=== PATIENT | female | born 1960 | race Caucasian/White ===

== ENCOUNTER 2017-08-10 20:59 | Emergency (ER) | payer OTHER ==
[2017-08-10 21:28] VITALS: BP 159/95; PULSE 84; RESP 20; TEMP 99
--- NOTE | 2017-08-10 22:28 | ED ---
General Adult HPI - General Chief complaint: ENT Stated complaint: ENT/Strep Time Seen by Provider: 08/10/17 22:12 Source: patient, RN notes reviewed Mode of arrival: ambulatory Limitations: no limitations - History of Present Illness Initial comments: Patient's a 57-year-old female who presents emergency room today with a chief complaint of cough congestion and sore throat. She does admit that family members have been diagnosed with bronchitis and also strep throat infection. She states her symptoms started just a few days ago. States hurts with swallows. She states she was seen in urgent care was given a Medrol Dosepak a little relief the symptoms. She believes that she needs an antibiotic. She does admit to history of COPD. States does breathing treatments at home. Denies any other complaints or symptoms. Patient denies any recent shortness of breath, chest pain, back pain, abdominal pain, nausea or vomiting, numbness or tingling, headaches or visual changes, or any other complaints. - Related Data Home Medications Medication Instructions Recorded Confirmed ALPRAZolam [Xanax] 0.5 mg PO TID PRN 06/01/15 06/01/15 Albuterol Nebulized [Ventolin 2.5 mg INHALATION Q4H 06/01/15 06/01/15 Nebulized] Budesonide/Formoterol Fumarate 2 puff INHALATION BID 06/01/15 06/01/15 [Symbicort 160-4.5 Mcg Inhaler] HYDROcodone/APAP 7.5-325MG [[place] 1 tab PO Q6HR PRN 06/01/15 06/01/15 7.5-325] Tiotropium 18 Mcg/Puff [Spiriva] 1 cap INHALATION DAILY 06/01/15 06/01/15 Previous Rx's Medication Instructions Recorded Doxycycline Hyclate 100 mg PO BID #20 tab 06/01/15 guaiFENesin-Coden 100-10MG/5ML 10 ml PO Q6HR PRN #200 ml 06/01/15 [Robitussin AC] Azithromycin [Zithromax Z-pack] 0 mg PO DIRECTED #6 tab 08/10/17 Fluconazole [Diflucan] 150 mg PO ONCE #1 tab 08/10/17 predniSONE 20 mg PO BID 5 Days tab 08/10/17 Allergies Allergy/AdvReac Type Severity Reaction Status Date / Time ciprofloxacin [From Cipro] Allergy Unknown Verified 08/10/17 21:28 ciprofloxacin HCl Allergy Unknown Verified 08/10/17 21:28 [From Cipro] Penicillins Allergy Unknown Verified 08/10/17 21:28 Review of Systems ROS Statement: Those systems with pertinent positive or pertinent negative responses have been documented in the HPI. ROS Other: All systems not noted in ROS Statement are negative. Past Medical History Past Medical History: COPD History of Any Multi-Drug Resistant Organisms: None Reported Additional Past Surgical History / Comment(s): neck Past Psychological History: Anxiety Smoking Status: Former smoker Past Alcohol Use History: None Reported Past Drug Use History: None Reported General Exam - General Exam Comments Initial Comments: General: The patient is awake and alert, in no distress, and does not appear acutely ill. Eye: Pupils are equal, round and reactive to light, extra-ocular movements are intact. No nystagmus. There is normal conjunctiva bilaterally. No signs of icterus. Ears, nose, mouth and throat: There are moist mucous membranes and no oral lesions. Neck: The neck is supple, there is no tenderness or JVD. Cardiovascular: There is a regular rate and rhythm. No murmur, rub or gallop is appreciated. Respiratory: Mild expiratory wheeze bilaterally. respirations are non-labored, breath sounds are equal. No stridor, rales, or rhonchi. Musculoskeletal: Normal ROM, no tenderness. Strength 5/5. Sensation intact. Pulses equal bilaterally 2+. Neurological: A&O x 3. CN II-XII intact, There are no obvious motor or sensory deficits. Coordination appears grossly intact. Speech is normal. Skin: Skin is warm and dry and no rashes or lesions are noted. Psychiatric: Cooperative, appropriate mood & affect, normal judgment. Limitations: no limitations Course Vital Signs 08/10/17 21:26 Temperature 99.0 F Pulse Rate 84 Respiratory 20 Rate Blood Pressure 159/95 O2 Sat by Pulse 97 Oximetry Medical Decision Making - Medical Decision Making Patient will be started on azithromycin cover for bronchitis also would cover strep infection. Patient he will midline. Mild redness the posterior pharynx. Does admit that she sometimes gets these infections will be given a prescription for Diflucan as well also a prescription for prednisone to use for her symptoms. Disposition Clinical Impression: Acute bronchitis Disposition: HOME SELF-CARE Condition: Good Instructions: Acute Bronchitis (ED) Additional Instructions: Please use medication as discussed. Please follow-up with family doctor in the next 2 days of symptoms have not improved. Please return to emergency room if the symptoms increase or worsen or for any other concerns. Prescriptions: Azithromycin [Zithromax Z-pack] 0 mg PO DIRECTED #6 tab Fluconazole [Diflucan] 150 mg PO ONCE #1 tab predniSONE 20 mg PO BID 5 Days tab Referrals: Nonstaff,Physician [Primary Care Provider] - 1-2 days Kings Mosqueda MD [STAFF PHYSICIAN] - 1-2 days Time of Disposition: 22:26
== END 2017-08-10 22:34 | disposition home or self-care (01) ==
LOC: EC 20:59
DX: J20.9 Acute bronchitis, unspecified (principal); J44.0 Chronic obstructive pulmonary disease with (acute) lower respiratory infection; Z87.891 Personal history of nicotine dependence; Z79.51 Long term (current) use of inhaled steroids; Z79.899 Other long term (current) drug therapy; Z88.0 Allergy status to penicillin; Z88.1 Allergy status to other antibiotic agents
CPT/HCPCS: 99283

== ENCOUNTER → 2018-03-11 | Outpatient (CLI) | payer MEDICARE, OTHER ==
--- NOTE | 2018-03-11 08:31 | CT ---
EXAMINATION TYPE: CT neck chest w con DATE OF EXAM: 03/11/2018 COMPARISON: NONE HISTORY: Thyroid nodule and pulmonary nodule per order. CT DLP: 984 mGycm. Automated Exposure Control for Dose Reduction was Utilized. TECHNIQUE: CT scan of the neck and thorax are performed following with IV Contrast, patient injected with 100 mL of Isovue 300. FINDINGS: NECK: FINDINGS: Airway: Thyroid gland is overall normal in size there are few subcentimeter nodules throughout the ri ght thyroid gland largest is lower pole level with thin rim calcification seen best coronal image 29 measuring 5 mm. No evidence of greater than 1 cm thyroid nodule noted. Parotid/submandibular glands: No gross abnormality seen. Carotid/Vascular Structures: There is mild calcified plaque in carotid bulb level bilaterally without significant stenosis. Incidental dominant left vertebral artery, vertebral arteries are patent to ba silar junction. Osseous Structures: There is anterior fusion plate C3-C6 level with metallic cage vertebral device C3 -C5 level. There is high dense disc material C5-C6 level. There is moderate disc space narrowing with moderate to severe anterior spurring C6-C7 level. Posterior spurring is effacing anterior thecal sac at C3-C4 level on sagittal and axial images and posterior spurring is also effacing anterior thecal sac at C5-C6 level on axial image 51. There are multilevel bilateral uncovertebral facet degenerative changes contributing to multilevel neural foraminal narrowing. Other: There is near complete opacification of ethmoid sinuses bilaterally. There is complete opacifi cation visualized portion of right frontal sinus. There is mild to moderate mucosal thickening in inf erior left frontal sinus. There is mild mucosal thickening in the anterior sphenoid sinuses bilateral ly. There is moderate to severe mucosal thickening in the visualized portion of the maxillary sinuses with 1.2 cm mucous retention cyst or polyp anteriorly in left maxillary sinus noted. There is eviden ce of prior surgery at level of ostiomeatal complex bilaterally with patency on the left but obstruct ion on the right noted. No suspicious greater than 1 cm neck adenopathy is identified bilaterally. Small scattered subcentime ter lymph nodes are seen throughout the neck bilaterally IMPRESSION: Thyroid gland is normal in size with subcentimeter right-sided nodularity, no suspicious greater than [address]. Persistent chronic paranasal pansinusitis is noted despi te prior sinus surgery. THORAX: LUNGS: There is mild to moderate biapical pleural/parenchymal scarring is prominent posteriorly in th e lung apices. There is anterior mild to moderate parenchymal fibrosis or scarring in the mid lungs m ore prominent towards the right middle lobe. I see no evidence of suspicious greater than 5 mm parenc hymal nodule or mass. Background mild underlying emphysematous changes felt present. Mild central bro nchiectasis near scarring anteriorly is present. Mild peribronchial wall thickening is seen. No pleur al effusion or pneumothorax is noted bilaterally. MEDIASTINUM: There are no greater than 1 cm hilar or mediastinal lymph nodes. No cardiomegaly or pe ricardial effusion is seen. Mild to minimal coronary artery calcification is seen which is noted mar ker for coronary artery disease. OTHER: Pancreas is not well identified as there are confluent small bowel loops near this level. Ther e is mild to moderate multilevel anterior spurring in the thoracic spine. IMPRESSION: No suspicious parenchymal nodules or masses.
== END | disposition home or self-care (01) ==
LOC: RADCTMAIN 07:32
PROVIDERS: ATTEND Internal Medicine
DX: E04.1 Nontoxic single thyroid nodule (principal); R91.1 Solitary pulmonary nodule
CPT/HCPCS: 70491; 71260; Q9967

== ENCOUNTER → 2020-11-14 | Outpatient (CLI) | payer MEDICARE, OTHER ==
--- NOTE | 2020-11-14 14:48 | CT ---
EXAMINATION TYPE: CT chest w con DATE OF EXAM: 11/14/2020 COMPARISON: None HISTORY: Shortness of breath. CT DLP: 408 mGycm Automated exposure control for dose reduction was used. CONTRAST: CT scan of the chest is performed with IV Contrast, patient injected with 100ml mL of Isovue 300. FINDINGS: LUNGS: Scattered nonspecific subpleural areas of nodularity measuring up to 3 mm. Nodular density rig ht upper lobe and measures 7 mm. Calcified granuloma left upper lobe measures 4 mm. 2 mm right upper lobe nodular density image 27. No evidence for infiltrate. No mass. There is no pleural effusion or p neumothorax seen. The tracheobronchial tree is patent. MEDIASTINUM: There are no greater than 1 cm hilar or mediastinal lymph nodes. No pericardial effusi on is seen. Thoracic aorta is of normal caliber. The heart is not enlarged. UPPER ABDOMEN: No significant abnormality appreciated. OTHER: No additional significant abnormality is seen. IMPRESSION: Scattered dense areas of subpleural nodularity as well as some parenchymal nodularity. A follow-up st udy in 6 months is advised. No evidence for infiltrate at this time.
== END | disposition home or self-care (01) ==
LOC: RADCTMAIN 14:03
PROVIDERS: ATTEND Internal Medicine
DX: R91.8 Other nonspecific abnormal finding of lung field (principal)
CPT/HCPCS: 71260; Q9967

== ENCOUNTER → 2021-09-22 | Outpatient (CLI) | payer MEDICARE, OTHER ==
--- NOTE | 2021-09-22 21:37 | CT ---
EXAMINATION TYPE: CT chest w con DATE OF EXAM: 09/22/2021 COMPARISON: CT dated 11/14/2020 HISTORY: COPD CT DLP: 252.2 mGycm Automated exposure control for dose reduction was used. TECHNIQUE: CT scan of the chest is performed with IV Contrast, patient injected with 100 mL of Isovue 300. FINDINGS: LUNGS: Right posterior apical pleural-based thickening/nodule measuring 17 mm, not well appreciated p reviously. The remainder of the previously seen pleural-based and parenchymal pulmonary nodules are s table since 2018 CT scan. Persistent COPD changes. Newly seen areas of bronchial impaction mainly see n in the lower lobe bronchi. Patent trachea and main bronchi. Mild infiltration at the medial aspect of the left lung base. No pleural effusion. MEDIASTINUM: No gross cardiomegaly. Scattered arterial and coronary atherosclerotic calcifications. N o pericardial effusion. No pathologically enlarged lymph nodes in the chest. OTHER: No gross upper abdominal abnormality. Lower cervical spine fixation. Marked degenerative de santiago ges at L1-2 level. No gross aggressive bone lesion. IMPRESSION: Newly seen right posterior apical pleural-based thickening/nodule measuring 17 mm as described above, for which a follow-up CT scan in 3 months is highly advised. Alternatively, a PET scan can be consid ered. Stable remainder of the previously seen scattered pleural-based and parenchymal pulmonary nodules. Ot her incidental findings as described above.
== END | disposition home or self-care (01) ==
LOC: RADCTMAIN 15:06
PROVIDERS: ATTEND Internal Medicine Critical Care Medicine
DX: J44.9 Chronic obstructive pulmonary disease, unspecified (principal)
CPT/HCPCS: 71260; Q9967

== ENCOUNTER → 2021-10-10 | Outpatient (CLI) | payer MEDICARE, OTHER ==
--- NOTE | 2021-10-15 17:19 | PE ---
Nuclear medicine PET/CT HISTORY: Solitary pulmonary nodule, initial Patient received 10.1 mCi F-18 FDG intravenously and delayed scanning was performed from the skull ba se to the mid thighs. Localization and attenuation correction CT scan was performed. Correlation to CT chest 09/22/2021 Average mediastinal uptake SUV is 1.9. Average liver uptake SUV is 2.4. Uptake associated with the right maxilla SUV 6.6, right maxillary sinus disease is present. Chest and neck: Apical pleural scarring is present with associated granuloma left upper lobe. No susp icious uptake. Thickening along the fissure seen on axial image 30 through the chest on previous exam is again noted, no suspicious uptake. There is no pleural pericardial effusion. There is no cervical or supraclavicular adenopathy. No mediastinal, axillary, or hilar adenopathy. Coronary artery calcif ications are present. ABDOMEN: There is no evident liver mass. No retroperitoneal adenopathy. No adrenal mass. There is no ascites or suspicious uptake. Bowel uptake is likely physiologic. No additional abnormal uptake within the visualized bones. IMPRESSION: Correlate for chronic sinus disease, there may be associated chronic infection of the rig ht maxilla.
== END | disposition home or self-care (01) ==
LOC: RADPETMAIN 17:10
PROVIDERS: ATTEND Internal Medicine Critical Care Medicine
DX: R91.1 Solitary pulmonary nodule (principal)
CPT/HCPCS: 78815; A9552

== ENCOUNTER 2023-01-16 06:36 | Inpatient (IN) | payer MEDICARE, OTHER ==
--- NOTE | 2023-01-16 07:03 | ED ---
General Adult HPI - General Stated complaint: Difficulty Breathing Time Seen by Provider: 01/16/23 06:37 Source: patient, EMS, RN notes reviewed Mode of arrival: EMS Limitations: no limitations - History of Present Illness Initial comments: This a 62-year-old female presents emergency from via EMS chief complaint of dyspnea. Patient states that she usually wakes up in the morning short of breath states that she normally does breathing treatment results. States that she did for treatments prior to EMS arrival with minimal relief. Patient was given additional DuoNeb and albuterol with some improvement after being placed on CPAP. Patient denies any chest pain denies any leg pain or No history of CHF. Patient is a former smoker history of COPD. - Related Data Home Medications Medication Instructions Recorded Confirmed ALPRAZolam [Xanax] 0.5 mg PO TID PRN 06/01/15 06/01/15 Albuterol Nebulized [Ventolin 2.5 mg INHALATION Q4H 06/01/15 06/01/15 Nebulized] Budesonide/Formoterol Fumarate 2 puff INHALATION BID 06/01/15 06/01/15 [Symbicort 160-4.5 Mcg Inhaler] HYDROcodone/APAP 7.5-325MG [[place] 1 tab PO Q6HR PRN 06/01/15 06/01/15 7.5-325] Tiotropium 18 Mcg/Puff [Spiriva] 1 cap INHALATION DAILY 06/01/15 06/01/15 Previous Rx's Medication Instructions Recorded Doxycycline Hyclate 100 mg PO BID #20 tab 06/01/15 guaiFENesin-Coden 100-10MG/5ML 10 ml PO Q6HR PRN #200 ml 06/01/15 [Robitussin AC] Azithromycin [Zithromax Z-pack (6 0 mg PO DIRECTED #6 tab 08/10/17 tabs)] Fluconazole [Diflucan] 150 mg PO ONCE #1 tab 08/10/17 predniSONE [Deltasone] 20 mg PO BID 5 Days tab 08/10/17 Allergies Allergy/AdvReac Type Severity Reaction Status Date / Time ciprofloxacin [From Cipro] Allergy Unknown Verified 08/10/17 21:28 ciprofloxacin HCl Allergy Unknown Verified 08/10/17 21:28 [From Cipro] Penicillins Allergy Unknown Verified 08/10/17 21:28 Review of Systems ROS Statement: Those systems with pertinent positive or pertinent negative responses have been documented in the HPI. ROS Other: All systems not noted in ROS Statement are negative. Past Medical History Past Medical History: COPD History of Any Multi-Drug Resistant Organisms: None Reported Additional Past Surgical History / Comment(s): neck Past Psychological History: Anxiety Past Alcohol Use History: None Reported Past Drug Use History: None Reported General Exam Limitations: no limitations General appearance: alert, in distress Head exam: Present: atraumatic, normocephalic, normal inspection Eye exam: Present: normal appearance, PERRL, EOMI. Absent: scleral icterus, conjunctival injection, periorbital swelling ENT exam: Present: normal exam, normal oropharynx, mucous membranes moist Neck exam: Present: normal inspection, full ROM. Absent: tenderness, meningismus, lymphadenopathy Respiratory exam: Present: respiratory distress, wheezes. Absent: normal lung sounds bilaterally, rales, rhonchi, stridor Cardiovascular Exam: Present: regular rate, normal rhythm, normal heart sounds. Absent: systolic murmur, diastolic murmur, rubs, gallop, clicks GI/Abdominal exam: Present: soft, normal bowel sounds. Absent: distended, tenderness, guarding, rebound, rigid Neurological exam: Present: alert, oriented X3 Skin exam: Present: warm, dry, intact, normal color. Absent: rash Course Vital Signs 01/16/23 01/16/23 01/16/23 06:49 06:50 06:56 Temperature 97.8 F Pulse Rate 84 Respiratory 22 Rate Blood Pressure 144/92 O2 Sat by Pulse 100 Oximetry Fraction of 100 40 Inspired Oxygen (FIO2) 01/16/23 07:40 Temperature Pulse Rate Respiratory Rate Blood Pressure O2 Sat by Pulse Oximetry Fraction of 40 Inspired Oxygen (FIO2) EKG Findings - EKG Comments: EKG Findings:: EKG performed at 6:48 sinus rhythm rate of 90 OR 150 QRS 74 QT/QTC 348/396 - EKG Results: EKG: interpreted by JOLEEN Medical Decision Making - Medical Decision Making Was pt. sent in by a medical professional or institution (, PA, IRRIGATION TEACHER, urgent care, hospital, or longterm...) When possible be specific @ -No Did you speak to anyone other than the patient for history (EMS, parent, family, police, friend...)? What history was obtained from this source @ -EMS providing prehospital treatment, vitals and presentation Did you review nursing and triage notes (agree or disagree)? Why? @ -I reviewed and agree with nursing and triage notes Were old charts reviewed (outside hosp., previous admission, EMS record, old EKG, old radiological studies, urgent care reports/EKG's, longterm records)? Report findings @ -No old charts were reviewed Differential Diagnosis (chest pain, altered mental status, abdominal pain women, abdominal pain men, vaginal bleeding, weakness, fever, dyspnea, syncope, he adache, dizziness, GI bleed, back pain, seizure, CVA, palpatations, mental health, musculoskeletal)? @ -Differential Dyspnea: Coronary syndrome, arrhythmia, tamponade, asthma, COPD, pulmonary embolism, pneumonia, pneumothorax, pulmonary effusion, anaphylaxis, diabetic ketoacidosis, flailed chest, pulmonary contusion, diaphragmatic rupture, anemia, neuromuscular, this is not meant to be an all-inclusive list. ble EKG interpreted by me (3pts min.). @ -As above X-rays interpreted by me (1pt min.). @ -Chest x-ray shows COPD changes, no infiltrates CT interpreted by me (1pt min.). @ -None done U/S interpreted by me (1pt. min.). @ -None done What testing was considered but not performed or refused? (CT, X-rays, U/S, labs)? Why? @ -None What meds were considered but not given or refused? Why? @ -None Did you discuss the management of the patient with other professionals (professionals i.e. , PA, IRRIGATION TEACHER, lab, RT, psych nurse, nephrology social worker, hat marker, teacher, business practices officer, nurse outreach case manager)? Give summary @ -[Dr. Leo for admission with consult to pulmonary Was smoking cessation discussed for >3mins.? @ -No Was critical care preformed (if so, how long)? @ -35 minutes Were there social determinants of health that impacted care today? How? (Homelessness, low income, unemployed, alcoholism, drug addiction, sanders sportation, low edu. Level, literacy, decrease access to med. care, nursing home, rehab)? @ -No Was there de-escalation of care discussed even if they declined (Discuss DNR or withdrawal of care, Hospice)? DNR status @ -No What co-morbidities impacted this encounter? (DM, HTN, Smoking, COPD, CAD, Cancer, CVA, ARF, Chemo, Hep., AIDS, mental health diagnosis, sleep apnea, morbid obesity)? @ -COPD Was patient admitted / discharged? Hospital course, mention meds given and route, prescriptions, significant lab abnormalities, going to OR and other pertinent info. @ -Admit the patient presented in respiratory distress, resting failure patient was placed on BiPAP patient did receive steroids, DuoNeb treatment prior arrival patient's is improving on BiPAP will have continuation of symptoms, steroids consult to pulmonary after studies are unremarkable. Undiagnosed new problem with uncertain prognosis? @ -No Drug Therapy requiring intensive monitoring for toxicity (Heparin, Nitro, Insulin, Cardizem)? @ -No Were any procedures done? @ -No Diagnosis/symptom? @ -COPD exacerbation Acute, or Chronic, or Acute on Chronic? @ -acute Uncomplicated (without systemic symptoms) or Complicated (systemic symptoms)? @ -complicated Side effects of treatment? @ -No Exacerbation, Progression, or Severe Exacerbation? @ -Severe exacerbation Poses a threat to life or bodily function? How? (Chest pain, USA, VT, pneumonia, PE, COPD, DKA, ARF, appy, cholecystitis, CVA, Diverticulitis, Homicidal, Suicidal, threat to staff... and all critical care pts) @ -[Yes patient has respiratory failure, Diagnosis/symptom? @ -Respiratory Failure Acute, or Chronic, or Acute on Chronic? @ -Acute Uncomplicated (without systemic symptoms) or Complicated (systemic symptoms)? @ -Complicated Side effects of treatment? @ -none Exacerbation, Progression, or Severe Exacerbation @ -no Poses a threat to life or bodily function? @ -yes - Lab Data Result diagrams: 01/16/23 07:01 01/16/23 07:01 Lab Results 01/16/23 01/16/23 01/16/23 Range/Units 07:01 07:01 07:01 WBC 8.7 (3.8-10.6) k/uL RBC 4.83 (3.80-5.40) m/uL Hgb 13.6 (11.4-16.0) gm/dL Hct 41.7 (34.0-46.0) % MCV 86.4 (80.0-100.0) fL MCH 28.1 (25.0-35.0) pg MCHC 32.5 (31.0-37.0) g/dL RDW 14.7 (11.5-15.5) % Plt Count 131 L (150-450) k/uL MPV 9.9 Neutrophils % 55 % Lymphocytes % 28 % Monocytes % 4 % Eosinophils % 10 % Basophils % 0 % Neutrophils # 4.8 (1.3-7.7) k/uL Lymphocytes # 2.5 (1.0-4.8) k/uL Monocytes # 0.3 (0-1.0) k/uL Eosinophils # 0.9 H (0-0.7) k/uL Basophils # 0.0 (0-0.2) k/uL PT 10.0 (9.0-12.0) sec INR 0.9 (<1.2) APTT 21.3 L (22.0-30.0) sec Sodium 141 (137-145) mmol/L Potassium 4.2 (3.5-5.1) mmol/L Chloride 112 H (98-107) mmol/L Carbon Dioxide 21 L (22-30) mmol/L Anion Gap 8 mmol/L BUN 17 (7-17) mg/dL Creatinine 0.65 (0.52-1.04) mg/dL Est GFR (CKD-EPI)AfAm >90 (>60 ml/min/1.73 sqM) Est GFR (CKD-EPI)NonAf >90 (>60 ml/min/1.73 sqM) Glucose 101 H (74-99) mg/dL Plasma Lactic Acid Allen (0.7-2.0) mmol/L Calcium 8.6 (8.4-10.2) mg/dL Magnesium 2.0 (1.6-2.3) mg/dL Total Bilirubin 0.4 (0.2-1.3) mg/dL AST 19 (14-36) U/L ALT 15 (4-34) U/L Alkaline Phosphatase 50 (38-126) U/L Troponin I (0.000-0.034) ng/mL NT-Pro-B Natriuret Pep 153 pg/mL Total Protein 6.6 (6.3-8.2) g/dL Albumin 3.9 (3.5-5.0) g/dL 01/16/23 01/16/23 Range/Units 07:01 07:01 WBC (3.8-10.6) k/uL RBC (3.80-5.40) m/uL Hgb (11.4-16.0) gm/dL Hct (34.0-46.0) % MCV (80.0-100.0) fL MCH (25.0-35.0) pg MCHC (31.0-37.0) g/dL RDW (11.5-15.5) % Plt Count (150-450) k/uL MPV Neutrophils % % Lymphocytes % % Monocytes % % Eosinophils % % Basophils % % Neutrophils # (1.3-7.7) k/uL Lymphocytes # (1.0-4.8) k/uL Monocytes # (0-1.0) k/uL Eosinophils # (0-0.7) k/uL Basophils # (0-0.2) k/uL PT (9.0-12.0) sec INR (<1.2) APTT (22.0-30.0) sec Sodium (137-145) mmol/L Potassium (3.5-5.1) mmol/L Chloride (98-107) mmol/L Carbon Dioxide (22-30) mmol/L Anion Gap mmol/L BUN (7-17) mg/dL Creatinine (0.52-1.04) mg/dL Est GFR (CKD-EPI)AfAm (>60 ml/min/1.73 sqM) Est GFR (CKD-EPI)NonAf (>60 ml/min/1.73 sqM) Glucose (74-99) mg/dL Plasma Lactic Acid Allen 1.3 (0.7-2.0) mmol/L Calcium (8.4-10.2) mg/dL Magnesium (1.6-2.3) mg/dL Total Bilirubin (0.2-1.3) mg/dL AST (14-36) U/L ALT (4-34) U/L Alkaline Phosphatase (38-126) U/L Troponin I 0.016 (0.000-0.034) ng/mL NT-Pro-B Natriuret Pep pg/mL Total Protein (6.3-8.2) g/dL Albumin (3.5-5.0) g/dL Disposition Clinical Impression: COPD exacerbation, Respiratory failure Disposition: ADMITTED IP TO THIS HOSP Condition: Poor Referrals: Madan Krishnamurthy MD [Primary Care Provider] - 1-2 days Time of Disposition: 08:19
[2023-01-16 07:16] LABS: Basophils % (A) 0 %; Eosinophils # (A) 0.9 k/uL (0-0.7); Eosinophils % (A) 10 %; HCT 41.7 % (34.0-46.0); HGB 13.6 gm/dL (11.4-16.0); Lymphocytes # (A) 2.5 k/uL (1.0-4.8); Lymphocytes % (A) 28 %; MCH 28.1 pg (25.0-35.0); MCHC 32.5 g/dL (31.0-37.0); MCV 86.4 fL (80.0-100.0); Mean Platelet Volume 9.9; Monocytes # (A) 0.3 k/uL (0-1.0); Monocytes % (A) 4 %; Neutrophils # (A) 4.8 k/uL (1.3-7.7); Neutrophils % (A) 55 %; Platelet Count 131 k/uL (150-450); RBC 4.83 m/uL (3.80-5.40); RDW 14.7 % (11.5-15.5); WBC 8.7 k/uL (3.8-10.6)
[2023-01-16 07:23] LABS: ALT 15 U/L (4-34); AST 19 U/L (14-36); African American GFR (CKD) >90 (>60 ml/min/1.73 sqM); Albumin 3.9 g/dL (3.5-5.0); Alkaline Phosphatase 50 U/L (38-126); Anion Gap 8 mmol/L; Blood Urea Nitrogen 17 mg/dL (7-17); Calcium 8.6 mg/dL (8.4-10.2); Carbon Dioxide 21 mmol/L (22-30); Chloride 112 mmol/L (98-107); Glucose 101 mg/dL (74-99); Non-African American GFR(CKD) >90 (>60 ml/min/1.73 sqM); Potassium 4.2 mmol/L (3.5-5.1); Sodium 141 mmol/L (137-145); Total Bilirubin 0.4 mg/dL (0.2-1.3); Total Protein 6.6 g/dL (6.3-8.2)
[2023-01-16] MEDS ORDERED: LORazepam 2 MG/ML INJ IV STA (07:23)
[2023-01-16 07:30] LABS: INR 0.9 (<1.2)
[2023-01-16 07:31] LABS: NT-Pro-B-Type Natriuretic Pept 153 pg/mL
[2023-01-16 07:37] LABS: Partial Thromboplastin Time 21.3 sec (22.0-30.0)
--- NOTE | 2023-01-16 08:01 | XR ---
EXAMINATION TYPE: XR chest 1V DATE OF EXAM: 01/16/2023 7:53 AM COMPARISON: PET/CT 10/10/2021, CT chest 09/22/2021, chest radiograph 09/19/2021 TECHNIQUE: XR chest 1V Frontal view of the chest. CLINICAL INDICATION:Female, 62 years old with history of difficulty breathing; FINDINGS: Lungs/Pleura: There is no evidence of pleural effusion, focal consolidation, or pneumothorax. Hyperi nflation. Chronic senescent parenchymal change. Pulmonary vascularity: Unremarkable. Heart/mediastinum: Cardiomediastinal silhouette is unremarkable. Musculoskeletal: No acute osseous pathology. Cervical fusion hardware. Remote fracture deformity of t he left proximal humerus. IMPRESSION: 1. No acute cardiopulmonary disease process. 2. COPD changes.
[2023-01-16] MEDS ORDERED: IPRATROPIUM-ALBUTEROL 3 ML NEB INHALATION PRN (08:19)
[2023-01-16] MEDS ORDERED: NALOXONE 0.4 MG/ML 1 ML VIAL IVP PRN (08:19)
[2023-01-16] MEDS ORDERED: AZITHROMYCIN 500 MG TAB PO SCH (09:00)
[2023-01-16] MEDS: HYDROcodone/APAP 7.5-325MG 1 EACH TAB PO PRN ×2 (10:35→16:13)
--- NOTE | 2023-01-16 11:06 | P.CNPUL ---
History of Present Illness Consult date: 01/16/23 Requesting physician: Ramon Leo Reason for consult: COPD Chief complaint: shortness of breath, cough, wheezing History of present illness: this is a 62-year-old female known history of severe COPD, normally sees Dr. Garcia for her COPD. Patient is on oxygen but she is not compliant with her. She is multiple bronchodilators, quit smoking a few months ago. Patient was admitted last night with symptoms of acute exacerbation of COPD. Her symptoms for the last 4 or 5 days have been symptoms of cough wheezing shortness of breath. Cough has been productive with brownish phlegm, but no fever, no chills, no hemoptysis, and no chest pain.chest x-ray showed no active active cardiopulmonary disease, she does have COPD findings.labs including CBC, basic metabolic profile, renal profile are all normal.patient was placed on BiPAP at 14/6 and 45% and she was noted to have significant dyspnea on her initial presentation. By the time I evaluated the patient, she was feeling better, breathing easier, nonetheless on physical examination she had diffuse rhonchi and wheezes bilaterally. Review of Systems constitutional: Negative HEENT: Negative Pulmonary: As noted in HPI cough wheezing shortness of breath. Cardiac: Negative GI: Negative Genito-urinary: Negative Musculoskeletal: Negative hematologic: Negative Neurologic: Negative Psychiatric: Negative skin: Negative Endocrine: negative Past Medical History Past Medical History: COPD History of Any Multi-Drug Resistant Organisms: None Reported Additional Past Surgical History / Comment(s): neck Past Psychological History: Anxiety Past Alcohol Use History: None Reported Past Drug Use History: None Reported Medications and Allergies Home Medications Medication Instructions Recorded Confirmed Type ALPRAZolam [Xanax] 0.5 mg PO TID PRN 06/01/15 06/01/15 History Albuterol Nebulized [Ventolin 2.5 mg INHALATION Q4H 06/01/15 06/01/15 History Nebulized] Budesonide/Formoterol Fumarate 2 puff INHALATION BID 06/01/15 06/01/15 History [Symbicort 160-4.5 Mcg Inhaler] Doxycycline Hyclate 100 mg PO BID #20 tab 06/01/15 Rx HYDROcodone/APAP 7.5-325MG [Grethel 1 tab PO Q6HR PRN 06/01/15 06/01/15 History 7.5-325] Tiotropium 18 Mcg/Puff [Spiriva] 1 cap INHALATION DAILY 06/01/15 06/01/15 History guaiFENesin-Coden 100-10MG/5ML 10 ml PO Q6HR PRN #200 ml 06/01/15 Rx [Robitussin AC] Azithromycin [Zithromax Z-pack (6 0 mg PO DIRECTED #6 tab 08/10/17 Rx tabs)] Fluconazole [Diflucan] 150 mg PO ONCE #1 tab 08/10/17 Rx predniSONE [Deltasone] 20 mg PO BID 5 Days tab 08/10/17 Rx ALPRAZolam [Xanax] 1 mg PO DAILY 01/16/23 01/16/23 History Ergocalciferol (Vitamin D2) 1,250 mcg PO ARELLANO 01/16/23 01/16/23 History [Drisdol (50,000 Iu)] Fluticasone/Umeclidin/Vilanter 1 puff INHALATION RT-DAILY 01/16/23 01/16/23 History [Trelegy Ellipta 200-62.5-25] Montelukast [Singulair] 10 mg PO DAILY 01/16/23 01/16/23 History Allergies Allergy/AdvReac Type Severity Reaction Status Date / Time ciprofloxacin [From Cipro] Allergy Rash/Hives Verified 01/16/23 10:53 ciprofloxacin HCl Allergy Rash/Hives Verified 01/16/23 10:53 [From Cipro] Penicillins Allergy "Passed Verified 01/16/23 10:53 out" Physical Exam Vitals: Vital Signs Temp Pulse Resp BP Pulse Ox FiO2 01/16/23 10:33 72 25 H 150/79 96 01/16/23 08:55 87 22 133/82 98 01/16/23 07:40 40 01/16/23 06:56 40 01/16/23 06:50 97.8 F 84 22 144/92 100 01/16/23 06:49 100 Intake and Output 01/15/23 01/16/23 01/16/23 22:59 06:59 14:59 Other: Weight 73.936 kg Physical Exam: Revealed 62-year-old female in no distress, presently on BiPAP, 14/6/40% Head: Atraumatic, normocephalic HEENT:[Neck is supple.] [No neck masses.] [No thyromegaly.] [No JVD.] Chest: [diffuse rhonchi and wheezes noted bilaterally. Cardiac Exam: [Normal S1 and S2, no S3 gallop, no murmur.] Abdomen: [Soft, nontender, no megaly, no rebound, no guarding, normal bowel sounds.] Extremities: [No clubbing, no edema, no cyanosis.] Neurological Exam: [No focal neurologic deficit.]alert oriented 3. Psychiatric: Normal mood affect and normal mental status examination. HEENT: No rashes Results - Laboratory Findings CBC and BMP: 01/16/23 07:01 01/16/23 07:01 PT/INR, D-dimer PT 10.0 sec (9.0-12.0) 01/16/23 07:01 INR 0.9 (<1.2) 01/16/23 07:01 Abnormal lab findings: Abnormal Labs 01/16/23 01/16/23 01/16/23 07:01 07:01 07:01 Plt Count 131 L Eosinophils # 0.9 H APTT 21.3 L Chloride 112 H Carbon Dioxide 21 L Glucose 101 H - Diagnostic Findings Chest x-ray: image reviewed (as noted in HPI) Assessment and Plan Assessment: impression: acute on chronic hypoxic respiratory failure secondary to acute exacerbation of COPD Acute exacerbation of COPD Acute tracheobronchitis Ex-smoker recommendation: Continue bronchodilators including DuoNeb, Solu-Medrol Pulmicort and Perforomist. Doxycycline 100 mg by mouth twice a day Transition patient to a nasal cannula and titrate FiO2 accordingly maintaining O2 saturation just above 90%. We will continue to follow Time with Patient: Greater than 30
[2023-01-16] MEDS: IPRATROPIUM-ALBUTEROL 3 ML NEB INHALATION SCH ×3 (11:23→20:13)
[2023-01-16] MEDS: methylPREDNISolone SOD SUCCI 125 MG/2 ML VIAL IV SCH ×3 (12:06→23:55)
[2023-01-16] MEDS ORDERED: DEXTROSE 50% SYRINGE 50 ML IVP PRN ×2 (14:28)
--- NOTE | 2023-01-16 15:14 | P.HPIM ---
History of Present Illness This is a pleasant 62 years old female with past medical history of COPD. Presents because of dyspnea and coughing. Over 2 days duration Patient has little chest pain with coughing She denies smoking alcohol or illicit drugs She is not on home oxygen on Admission patient was in some respiratory distress and she was placed on BiPA P machine. Currently she is saturating 100% on FiO2 of 35%. She looks more comfortable interactive that she does more freely. Afebrile. Labs including CBC, INR BMP and liver enzymes are unremarkable. ENT is 153. Chest x-ray: COPD changes with no acute process EKG: Sinus rhythm normal at 90 bpm with no significant ST-T changes. Review of Systems Review of systems CONSTITUTIONAL: No fever, no malaise, no fatigue. HEENT: No recent visual problems or hearing problems. Denied any sore throat. CARDIOVASCULAR: No orthopnea, PND, no palpitations, no syncope. PULMONARY: No chest wall tenderness, no cough, no hemoptysis. GASTROINTESTINAL: No diarrhea, no nausea, no vomiting, no abdominal pain. Normoactive bowel sounds. NEUROLOGICAL: No headaches, no weakness, no numbness. HEMATOLOGICAL: Denies any bleeding or petechiae. GENITOURINARY: Denies any burning micturition, frequency, or urgency. MUSCULOSKELETAL/RHEUMATOLOGICAL: Denies any joint pain, swelling, or any muscle pain. ENDOCRINE: Denies any polyuria or polydipsia. Past Medical History Past Medical History: COPD History of Any Multi-Drug Resistant Organisms: None Reported Additional Past Surgical History / Comment(s): neck C2-C6 lamenectomy with bracket placement Past Psychological History: Anxiety Smoking Status: Former smoker Past Alcohol Use History: None Reported Past Drug Use History: None Reported - Past Family History Father Family Medical History: Cancer Mother Family Medical History: AICD/Pacemaker Medications and Allergies Home Medications Medication Instructions Recorded Confirmed Type Albuterol Nebulized [Ventolin 2.5 mg INHALATION RT-Q4H PRN 06/01/15 01/16/23 History Nebulized] ALPRAZolam [Xanax] 1 mg PO DAILY 01/16/23 01/16/23 History Acetaminophen Tab [Tylenol Tab] 1,000 mg PO Q6HR PRN 01/16/23 01/16/23 History Albuterol Sulfate [Albuterol 2 puff PO RT-Q4H PRN 01/16/23 01/16/23 History Sulfate Hfa] Ergocalciferol (Vitamin D2) 1,250 mcg PO ARELLANO 01/16/23 01/16/23 History [Drisdol (50,000 Iu)] Escitalopram [Lexapro] 10 mg PO DAILY 01/16/23 01/16/23 History Fluticasone/Umeclidin/Vilanter 1 puff INHALATION RT-DAILY 01/16/23 01/16/23 History [Trelegy Ellipta 200-62.5-25] HYDROcodone/APAP 10-325MG [Deshler 1 tab PO BID PRN 01/16/23 01/16/23 History 10-325] Ibuprofen [Motrin Ib] 800 mg PO Q8H PRN 01/16/23 01/16/23 History Montelukast [Singulair] 10 mg PO DAILY 01/16/23 01/16/23 History Allergies Allergy/AdvReac Type Severity Reaction Status Date / Time ciprofloxacin [From Cipro] Allergy Rash/Hives Verified 01/16/23 10:53 ciprofloxacin HCl Allergy Rash/Hives Verified 01/16/23 10:53 [From Cipro] Penicillins Allergy "Passed Verified 01/16/23 10:53 out" Physical Exam Vitals: Vital Signs Temp Pulse Pulse Resp BP BP Pulse Ox 01/16/23 11:41 97 F L 77 21 145/76 100 01/16/23 11:32 84 01/16/23 11:23 80 01/16/23 11:10 01/16/23 10:33 72 25 H 150/79 96 01/16/23 08:55 87 22 133/82 98 01/16/23 07:40 01/16/23 06:56 01/16/23 06:50 97.8 F 84 22 144/92 100 01/16/23 06:49 FiO2 01/16/23 11:41 35 01/16/23 11:32 01/16/23 11:23 01/16/23 11:10 35 01/16/23 10:33 01/16/23 08:55 01/16/23 07:40 40 01/16/23 06:56 40 01/16/23 06:50 01/16/23 06:49 100 Intake and Output 01/15/23 01/16/23 01/16/23 22:59 06:59 14:59 Other: # Bowel Movements 1 Weight 73.936 kg 73.936 kg GENERAL: The patient is alert and oriented x3, not in any acute distress. Well developed, well nourished. HEENT: Pupils are round and equally reacting to light. EOMI. No scleral icterus. No conjunctival pallor. Normocephalic, atraumatic. No pharyngeal erythema. No thyromegaly. CARDIOVASCULAR: S1 and S2 present. No murmurs, rubs, or gallops. -PULMONARY: Chest is clear to auscultation, bilateral expiratory wheezing , no crackles. ABDOMEN: Soft, nontender, nondistended, normoactive bowel sounds. No palpable organomegaly. MUSCULOSKELETAL: No joint swelling or deformity. EXTREMITIES: No cyanosis, clubbing, or pedal edema. NEUROLOGICAL: Gross neurological examination did not reveal any focal deficits. SKIN: No rashes. no petechiae. Results CBC & Chem 7: 01/16/23 07:01 01/16/23 07:01 Labs: Abnormal Lab Results - Last 24 Hours (Table) 01/16/23 01/16/23 01/16/23 Range/Units 07:01 07:01 07:01 Plt Count 131 L (150-450) k/uL Eosinophils # 0.9 H (0-0.7) k/uL APTT 21.3 L (22.0-30.0) sec Chloride 112 H (98-107) mmol/L Carbon Dioxide 21 L (22-30) mmol/L Glucose 101 H (74-99) mg/dL Thrombosis Risk Factor Assmnt - Choose All That Apply Any of the Below Risk Factors Present?: Yes Each Factor Represents 1 point: Abnormal pulmonary function (COPD) Other Risk Factors: Yes Each Risk Factor Represents 2 Points: Age 61-74 years Thrombosis Risk Factor Assessment Total Risk Factor Score: 3 Thrombosis Risk Factor Assessment Level: Moderate Risk Assessment and Plan Assessment: Acute COPD exacerbation. Acute hypoxic respiratory failure Plan: Continue with IV Solu-Medrol Continue with doxycycline Pulmonary team consult Labs and medication were reviewed.. Continue same treatment. Continue with sym ptomatic treatment. Resume home medication. Monitor labs and vitals. DVT and GI prophylaxis. Further recommendations as per clinical course of the patient DVT prophylaxis: Subcutaneous heparin GI Prophylaxis: Pepcid PT/OT: Pending Prognosis is guarded
[2023-01-16] MEDS: INSULIN ASPART (NovoLOG) 100 UNIT/ML VIAL SQ SCH ×2 (16:19→20:57)
[2023-01-16 16:20] LABS: Glucose,Whole Blood 137 mg/dL (70-110)
[2023-01-16] MEDS: FORMOTEROL FUMARATE 20 MCG/2 ML NEBU INHALATION SCH (20:12)
[2023-01-16] MEDS: BUDESONIDE 1 MG/2 ML NEBU INHALATION SCH (20:13)
[2023-01-16 20:14] LABS: Glucose,Whole Blood 207 mg/dL (70-110)
[2023-01-16] MEDS: FAMOTIDINE 20 MG/2 ML VIAL IV SCH (20:56)
[2023-01-16] MEDS: DOXYCYCLINE 100 MG CAP PO SCH (20:57)
[2023-01-16] MEDS: HEPARIN SODIUM,PORCINE/PF 5,000 UNIT/0.5 ML SYRINGE SQ SCH (20:57)
[2023-01-16] MEDS ORDERED: ALBUTEROL NEBULIZED 2.5 MG/3 ML INHALATION PRN (21:20)
[2023-01-16] MEDS: ACETAMINOPHEN TAB 500 MG TAB PO PRN (21:37)
[2023-01-16] MEDS: ALPRAZolam 0.5 MG TAB PO PRN (21:37)
[2023-01-17 06:09] LABS: Glucose,Whole Blood 150 mg/dL (70-110)
[2023-01-17] MEDS: ACETAMINOPHEN TAB 500 MG TAB PO PRN (06:12)
[2023-01-17] MEDS: methylPREDNISolone SOD SUCCI 125 MG/2 ML VIAL IV SCH ×4 (06:13→22:05)
[2023-01-17] MEDS: INSULIN ASPART (NovoLOG) 100 UNIT/ML VIAL SQ SCH ×4 (06:24→22:09)
[2023-01-17] MEDS ORDERED: NON FORMULARY DRUG (Fluticasone/Umeclidin/Vilanter [Trelegy Ellipta 200-62.5-25] 1 EACH Bl INHALATION SCH (08:00)
[2023-01-17] MEDS: BUDESONIDE 1 MG/2 ML NEBU INHALATION SCH ×2 (08:27→20:10)
[2023-01-17] MEDS: IPRATROPIUM-ALBUTEROL 3 ML NEB INHALATION SCH ×4 (08:27→20:10)
[2023-01-17] MEDS: FORMOTEROL FUMARATE 20 MCG/2 ML NEBU INHALATION SCH ×2 (08:27→20:10)
[2023-01-17] MEDS: ESCITALOPRAM 10 MG TAB PO SCH (08:57)
[2023-01-17] MEDS: HYDROcodone/APAP 7.5-325MG 1 EACH TAB PO PRN ×2 (08:57→17:28)
[2023-01-17] MEDS: MONTELUKAST 10 MG TAB PO SCH (08:57)
[2023-01-17] MEDS: HEPARIN SODIUM,PORCINE/PF 5,000 UNIT/0.5 ML SYRINGE SQ SCH ×2 (08:57→22:09)
[2023-01-17] MEDS: DOXYCYCLINE 100 MG CAP PO SCH ×3 (08:57→22:06)
[2023-01-17] MEDS: FAMOTIDINE 20 MG/2 ML VIAL IV SCH ×2 (08:57→22:06)
[2023-01-17 11:33] LABS: Glucose,Whole Blood 130 mg/dL (70-110)
--- NOTE | 2023-01-17 11:39 | P.PN ---
Subjective Progress Note Date: 01/17/23 Principal diagnosis: Acute exacerbation of COPD this is a 62-year-old female known history of severe COPD, normally sees Dr. Garcia for her COPD. Patient is on oxygen but she is not compliant with her. She is multiple bronchodilators, quit smoking a few months ago. Patient was admitted last night with symptoms of acute exacerbation of COPD. Her symptoms for the last 4 or 5 days have been symptoms of cough wheezing shortness of breath. Cough has been productive with brownish phlegm, but no fever, no chills, no hemoptysis, and no chest pain.chest x-ray showed no active active cardiopulmonary disease, she does have COPD findings.labs including CBC, basic metabolic profile, renal profile are all normal.patient was placed on BiPAP at 14/6 and 45% and she was noted to have significant dyspnea on her initial presentation. By the time I evaluated the patient, she was feeling better, breathing easier, nonetheless on physical examination she had diffuse rhonchi and wheezes bilaterally. Patient was reevaluated today 01/17/23, patient is feeling better less cough and less wheezing less shortness of breath improved but not back to baseline. Patient is obviously responding well to her present course of bronchodilators and steroids, and she will probably need another day of IV Solu-Medrol before we could consider discharge planning on this patient. Objective - Vital Signs Vital signs: Vital Signs Temp 97.9 F 01/17/23 08:00 Pulse 78 01/17/23 11:27 Resp 18 01/17/23 08:00 BP 129/70 01/17/23 08:00 Pulse Ox 97 01/17/23 08:00 FiO2 35 01/16/23 16:05 Intake & Output 01/16/23 01/17/23 01/17/23 18:59 06:59 18:59 Intake Total 1100 240 Balance 1100 240 Weight 73.936 kg Intake: IV 20 Invasive Line 1 20 Oral 1080 240 Other: Voiding Method Toilet # Voids 2 # Bowel Movements 1 - Exam Physical Exam: Revealed 62-year-old female in no distress, on 3 L nasal cannula Head: Atraumatic, normocephalic HEENT:[Neck is supple.] [No neck masses.] [No thyromegaly.] [No JVD.] Chest: [Scattered rhonchi and wheezes noted bilaterally. Cardiac Exam: [Normal S1 and S2, no S3 gallop, no murmur.] Abdomen: [Soft, nontender, no megaly, no rebound, no guarding, normal bowel sounds.] Extremities: [No clubbing, no edema, no cyanosis.] Neurological Exam: [No focal neurologic deficit.]alert oriented 3. Psychiatric: Normal mood affect and normal mental status examination. HEENT: No rashes - Labs CBC & Chem 7: 01/16/23 07:01 01/16/23 07:01 Labs: Abnormal Lab Results - Last 24 Hours (Table) 01/16/23 01/16/23 01/17/23 Range/Units 16:18 20:12 06:08 POC Glucose (mg/dL) 137 H 207 H 150 H (70-110) mg/dL 01/17/23 Range/Units 11:31 POC Glucose (mg/dL) 130 H (70-110) mg/dL Assessment and Plan Assessment: impression: acute on chronic hypoxic respiratory failure secondary to acute exacerbation of COPD Acute exacerbation of COPD Acute tracheobronchitis Ex-smoker recommendation: Continue bronchodilators including DuoNeb, Solu-Medrol Pulmicort and Perforomist. Doxycycline 100 mg by mouth twice a day Possible discharge planning in the next 24 hours We will continue to follow Time with Patient: Less than 30
--- NOTE | 2023-01-17 13:00 | P.PN ---
Subjective This is a pleasant 62 years old female with past medical history of COPD. Presents because of dyspnea and coughing. Over 2 days duration Patient has little chest pain with coughing She denies smoking alcohol or illicit drugs She is not on home oxygen on Admission patient was in some respiratory distress and she was placed on BiPAP machine. Currently she is saturating 100% on FiO2 of 35%. She looks more comfortable interactive that she does more freely. Afebrile. Labs including CBC, INR BMP and liver enzymes are unremarkable. ENT is 153. Chest x-ray: COPD changes with no acute process EKG: Sinus rhythm normal at 90 bpm with no significant ST-T changes. 01/17/2023 Patient dyspnea is improving. She is saturating 97% on 2 L oxygen via nasal cannula. She does not BiPAP this morning. She remains on IV Solu-Medrol 60 mg on doxycycline Possible discharge in 24-48 hours was cleared by pulmonary service. Objective - Vital Signs Vital signs: Vital Signs Temp 98 F 01/17/23 12:15 Pulse 80 01/17/23 12:15 Resp 18 01/17/23 12:15 BP 132/69 01/17/23 12:15 Pulse Ox 96 01/17/23 12:15 FiO2 35 01/16/23 16:05 Intake & Output 01/16/23 01/17/23 01/17/23 18:59 06:59 18:59 Intake Total 1100 240 Balance 1100 240 Weight 73.936 kg Intake: IV 20 Invasive Line 1 20 Oral 1080 240 Other: Voiding Method Toilet # Voids 2 # Bowel Movements 1 - Exam GENERAL: The patient is alert and oriented x3, not in any acute distress. Well developed, well nourished. HEENT: Pupils are round and equally reacting to light. EOMI. No scleral icterus. No conjunctival pallor. Normocephalic, atraumatic. No pharyngeal erythema. No thyromegaly. CARDIOVASCULAR: S1 and S2 present. No murmurs, rubs, or gallops. -PULMONARY: Chest is clear to auscultation, scattered wheezing , no crackles. ABDOMEN: Soft, nontender, nondistended, normoactive bowel sounds. No palpable organomegaly. MUSCULOSKELETAL: No joint swelling or deformity. EXTREMITIES: No cyanosis, clubbing, or pedal edema. NEUROLOGICAL: Gross neurological examination did not reveal any focal deficits. SKIN: No rashes. no petechiae. - Labs CBC & Chem 7: 01/16/23 07:01 01/16/23 07:01 Labs: Abnormal Lab Results - Last 24 Hours (Table) 01/16/23 01/16/23 01/17/23 Range/Units 16:18 20:12 06:08 POC Glucose (mg/dL) 137 H 207 H 150 H (70-110) mg/dL 01/17/23 Range/Units 11:31 POC Glucose (mg/dL) 130 H (70-110) mg/dL Assessment and Plan Assessment: Acute COPD exacerbation. Acute hypoxic respiratory failure Plan: Continue with IV Solu-Medrol Continue with doxycycline Pulmonary team consult Labs and medication were reviewed.. Continue same treatment. Continue with symptomatic treatment. Resume home medication. Monitor labs and vitals. DVT and GI prophylaxis. Further recommendations as per clinical course of the patient DVT prophylaxis: Subcutaneous heparin GI Prophylaxis: Pepcid PT/OT: Pending Prognosis is guarded
[2023-01-17 16:22] LABS: Glucose,Whole Blood 150 mg/dL (70-110)
--- NOTE | 2023-01-17 18:12 | CT ---
EXAMINATION TYPE: CT chest wo con CT DLP: 307.3 mGycm, Automated exposure control for dose reduction was used. DATE OF EXAM: 01/17/2023 5:59 PM COMPARISON: CT chest 09/22/2021, PET/CT 10/10/2021 CLINICAL INDICATION:Female, 62 years old with histor y of chest pain; TECHNIQUE: Multiple axial images were obtained through the chest. Sagittal and coronal reformats were created for review. Contrast used: mL of (None if empty) Oral contrast used: (None if empty) FINDINGS: LUNGS/ PLEURA: Scattered streaky atelectasis/scarring throughout the lungs. No focal consolidation, p neumothorax or pleural effusion. Right minor fissure lymph node versus scarring. AIRWAY: Patent and unremarkable. HEART: Size within normal limits. Atherosclerosis of the left anterior descending coronary artery MEDIASTINUM: No gross evidence of adenopathy. VASCULATURE: No aortic aneurysm. MUSCULOSKELETAL: No acute osseous abnormalities, fixation hardware in the lower cervical spine is par tially visualized what is visualized appears intact. The ribs and other osseous structures all appear intact without evidence for acute fracture. Moderate to severe degeneration changes are the spine is multilevel disc space narrowing, osteophytes, vacuum disc phenomena, and small amounts SOFT TISSUES/LYMPH NODES: Unremarkable. LOWER NECK: No significant findings. UPPER ABDOMEN: No significant findings. IMPRESSION: No evidence for acute process. No finding to explain patient's pain.
[2023-01-17 20:09] LABS: Glucose,Whole Blood 199 mg/dL (70-110)
[2023-01-17] MEDS: ALPRAZolam 0.5 MG TAB PO PRN (22:16)
[2023-01-18 06:22] LABS: Glucose,Whole Blood 161 mg/dL (70-110)
[2023-01-18] MEDS: methylPREDNISolone SOD SUCCI 125 MG/2 ML VIAL IV SCH ×3 (07:08→18:02)
[2023-01-18] MEDS: INSULIN ASPART (NovoLOG) 100 UNIT/ML VIAL SQ SCH ×4 (07:10→21:58)
[2023-01-18] MEDS: BUDESONIDE 1 MG/2 ML NEBU INHALATION SCH ×2 (07:52→21:04)
[2023-01-18] MEDS: FORMOTEROL FUMARATE 20 MCG/2 ML NEBU INHALATION SCH ×2 (07:52→20:58)
[2023-01-18] MEDS: IPRATROPIUM-ALBUTEROL 3 ML NEB INHALATION SCH ×4 (07:53→20:58)
[2023-01-18] MEDS: FAMOTIDINE 20 MG/2 ML VIAL IV SCH ×2 (08:54→21:57)
[2023-01-18] MEDS: DOXYCYCLINE 100 MG CAP PO SCH (08:54)
[2023-01-18] MEDS: HYDROcodone/APAP 7.5-325MG 1 EACH TAB PO PRN ×2 (08:54→18:22)
[2023-01-18] MEDS: MONTELUKAST 10 MG TAB PO SCH (08:54)
[2023-01-18] MEDS: ESCITALOPRAM 10 MG TAB PO SCH (08:54)
[2023-01-18] MEDS: HEPARIN SODIUM,PORCINE/PF 5,000 UNIT/0.5 ML SYRINGE SQ SCH ×2 (08:57→21:58)
[2023-01-18] MEDS ORDERED: hydrALAZINE HCL 20 MG/ML 1 ML VIAL IVP PRN (10:03)
[2023-01-18] MEDS: amLODIPine 5 MG TAB PO SCH (10:19)
--- NOTE | 2023-01-18 10:56 | P.PN ---
Subjective Progress Note Date: 01/18/23 Principal diagnosis: Shortness of breath. Acute exacerbation of COPD this is a 62-year-old female known history of severe COPD, normally sees Dr. Garcia for her COPD. Patient is on oxygen but she is not compliant with her. She is multiple bronchodilators, quit smoking a few months ago. Patient was admitted last night with symptoms of acute exacerbation of COPD. Her symptoms for the last 4 or 5 days have been symptoms of cough wheezing shortness of breath. Cough has been productive with brownish phlegm, but no fever, no chills, no hemoptysis, and no chest pain.chest x-ray showed no active active cardiopulmonary disease, she does have COPD findings.labs including CBC, basic metabolic profile, renal profile are all normal.patient was placed on BiPAP at 14/6 and 45% and she was noted to have significant dyspnea on her initial presentation. By the time I evaluated the patient, she was feeling better, breathing easier, nonetheless on physical examination she had diffuse rhonchi and wheezes bilaterally. Patient was reevaluated today 01/17/23, patient is feeling better less cough and less wheezing less shortness of breath improved but not back to baseline. Felicia ent is obviously responding well to her present course of bronchodilators and steroids, and she will probably need another day of IV Solu-Medrol before we could consider discharge planning on this patient. Progress note dated 01/18/2023. 62-year-old female with history of COPD. She was admitted to the hospital a couple days ago with a COPD exacerbation. She came in with shortness of breath, cough, wheezing, chest tightness, and brown phlegm production. The patient is on 2 L nasal cannula. She's not receiving any IV fluids. The patient is seen today in room 357. The only new labs today is a glucose of 161. Objective - Vital Signs Vital signs: Vital Signs Temp 98.2 F 01/18/23 08:50 Pulse 62 01/18/23 08:50 Resp 22 01/18/23 08:50 BP 186/84 01/18/23 08:50 Pulse Ox 95 01/18/23 08:50 FiO2 35 01/16/23 16:05 Intake & Output 01/17/23 01/18/23 01/18/23 18:59 06:59 18:59 Intake Total 360 480 Balance 360 480 Intake: Oral 360 480 Other: Voiding Method Toilet Toilet # Voids 2 # Bowel Movements 0 - Exam No acute distress, oriented 3. No conversational dyspnea, audible wheezing, or use of accessory muscles. HEENT examination is grossly unremarkable. Neck supple. Full range of motion. No adenopathy thyromegaly or neck vein distention. Cardiovascular examination reveals regular rhythm rate. S1-S2 normal. No S3 or S4. No discernible murmur noted. Heart rate 76 bpm. Lungs reveal diffuse bilateral expiratory wheezes and rhonchi. Breath sounds equal bilaterally. 2 L saturation 95%. No crackles. Abdomen soft bowel sounds are heard. No masses or tenderness. Extremities are intact. No cyanosis clubbing or edema. Skin is without rash or lesion. Neurologic examination is brief but nonfocal. - Labs CBC & Chem 7: 01/16/23 07:01 01/16/23 07:01 Labs: Abnormal Lab Results - Last 24 Hours (Table) 01/17/23 01/17/23 01/17/23 Range/Units 11:31 16:21 20:08 POC Glucose (mg/dL) 130 H 150 H 199 H (70-110) mg/dL 01/18/23 Range/Units 06:21 POC Glucose (mg/dL) 161 H (70-110) mg/dL Assessment and Plan Assessment: Acute on chronic hypoxemic respiratory failure, secondary to COPD exacerbation. History of chronic obstructive pulmonary disease. Acute tracheobronchitis. History of previous tobacco use. Plan: Plan dated 01/18/2023. The patient remains on all appropriate medications, including albuterol sulfate, ipratropium bromide, budesonide, formoterol, and Solu-Medrol. We will continue to follow make recommendations along the way. Overall prognosis remains gua rded. The patient has not see me in the office for over a year. We encourage her to come back to the office, to be evaluated, once discharged. Time with Patient: Less than 30
[2023-01-18 11:48] LABS: Glucose,Whole Blood 111 mg/dL (70-110)
[2023-01-18] MEDS: ALPRAZolam 0.5 MG TAB PO PRN ×2 (11:59→23:18)
[2023-01-18 17:27] LABS: Glucose,Whole Blood 126 mg/dL (70-110)
[2023-01-18 19:47] LABS: Glucose,Whole Blood 227 mg/dL (70-110)
[2023-01-19] MEDS: methylPREDNISolone SOD SUCCI 125 MG/2 ML VIAL IV SCH ×4 (00:10→18:30)
--- NOTE | 2023-01-19 05:58 | P.PN ---
Subjective Progress Note Date: 01/19/23 Principal diagnosis: Shortness of breath. Acute exacerbation of COPD this is a 62-year-old female known history of severe COPD, normally sees Dr. Garcia for her COPD. Patient is on oxygen but she is not compliant with her. She is multiple bronchodilators, quit smoking a few months ago. Patient was admitted last night with symptoms of acute exacerbation of COPD. Her symptoms for the last 4 or 5 days have been symptoms of cough wheezing shortness of breath. Cough has been productive with brownish phlegm, but no fever, no chills, no hemoptysis, and no chest pain.chest x-ray showed no active active cardiopulmonary disease, she does have COPD findings.labs including CBC, basic metabolic profile, renal profile are all normal.patient was placed on BiPAP at 14/6 and 45% and she was noted to have significant dyspnea on her initial presentation. By the time I evaluated the patient, she was feeling better, breathing easier, nonetheless on physical examination she had diffuse rhonchi and wheezes bilaterally. Patient was reevaluated today 01/17/23, patient is feeling better less cough and less wheezing less shortness of breath improved but not back to baseline. Felicia ent is obviously responding well to her present course of bronchodilators and steroids, and she will probably need another day of IV Solu-Medrol before we could consider discharge planning on this patient. Progress note dated 01/18/2023. 62-year-old female with history of COPD. She was admitted to the hospital a couple days ago with a COPD exacerbation. She came in with shortness of breath, cough, wheezing, chest tightness, and brown phlegm production. The patient is on 2 L nasal cannula. She's not receiving any IV fluids. The patient is seen today in room 357. The only new labs today is a glucose of 161. Progress note dated 01/19/2023. 62-year-old female seen today in room 518. She was admitted with a diagnosis of COPD exacerbation. The patient continues on oxygen at 2 L. No IV fluids. She still very short of breath, bronchospastic, and coughing quite a bit. She probably needs 1 more day in the hospital. No new laboratory data as yet. Microbiology data is negative are pending. Chest CT was negative for any acute process. She remains on Pulmicort, formoterol, albuterol, ipratropium bromide, and Solu-Medrol. She's also on Singulair, 10 mg. Objective - Vital Signs Vital signs: Vital Signs Temp 98.4 F 01/19/23 01:08 Pulse 65 01/19/23 01:08 Resp 18 01/19/23 01:08 BP 150/74 01/19/23 01:08 Pulse Ox 98 01/19/23 01:08 FiO2 35 01/16/23 16:05 Intake & Output 01/18/23 01/18/23 01/19/23 06:59 18:59 06:59 Intake Total 480 500 Balance 480 500 Intake: Oral 480 500 Other: Voiding Method Toilet Toilet Toilet # Voids 2 1 3 - Exam No acute distress, oriented 3. No conversational dyspnea, audible wheezing, or use of accessory muscles. HEENT examination is grossly unremarkable. Neck supple. Full range of motion. No adenopathy thyromegaly or neck vein distention. Cardiovascular examination reveals regular rhythm rate. S1-S2 normal. No S3 or S4. No discernible murmur noted. Heart rate 65 bpm. Lungs reveal diffuse bilateral expiratory wheezes and rhonchi. Breath sounds equal bilaterally. 2 L saturation 98 %. No crackles. Breath sounds are marginally improved. Abdomen soft bowel sounds are heard. No masses or tenderness. Extremities are intact. No cyanosis clubbing or edema. Skin is without rash or lesion. Neurologic examination is brief but nonfocal. - Labs CBC & Chem 7: 01/16/23 07:01 01/16/23 07:01 Labs: Abnormal Lab Results - Last 24 Hours (Table) 01/18/23 01/18/23 01/18/23 Range/Units 06:21 11:46 17:25 POC Glucose (mg/dL) 161 H 111 H 126 H (70-110) mg/dL 01/18/23 Range/Units 19:43 POC Glucose (mg/dL) 227 H (70-110) mg/dL Assessment and Plan Assessment: Acute on chronic hypoxemic respiratory failure, secondary to COPD exacerbation. History of chronic obstructive pulmonary disease. Acute tracheobronchitis. History of previous tobacco use. Plan: Plan dated 01/18/2023. The patient remains on all appropriate medications, including albuterol sulfate, ipratropium bromide, budesonide, formoterol, and Solu-Medrol. We will continue to follow make recommendations along the way. Overall prognosis remains guarded. The patient has not see me in the office for over a year. We encourage her to come back to the office, to be evaluated, once discharged. Plan dated 01/19/2023. The patient is doing well. She still probably needs 1 more day here in the hospital. She's on appropriate medications. She still very short of breath, coughing quite a bit, and still bronchospastic. Her medications are appropriate. No new labs. Chest CT was negative. She will need follow-up with me after discharge. She hasn't been back to the office in over a year. She'll need an updated pulmonary function test as well. Time with Patient: Less than 30
[2023-01-19] MEDS: HYDROcodone/APAP 7.5-325MG 1 EACH TAB PO PRN ×4 (06:10→18:38)
[2023-01-19] MEDS: IPRATROPIUM-ALBUTEROL 3 ML NEB INHALATION SCH ×4 (07:44→19:56)
[2023-01-19] MEDS: BUDESONIDE 1 MG/2 ML NEBU INHALATION SCH ×2 (07:44→19:56)
[2023-01-19] MEDS: FORMOTEROL FUMARATE 20 MCG/2 ML NEBU INHALATION SCH ×2 (07:44→19:56)
[2023-01-19 07:52] LABS: Glucose,Whole Blood 130 mg/dL (70-110)
[2023-01-19] MEDS: INSULIN ASPART (NovoLOG) 100 UNIT/ML VIAL SQ SCH ×4 (07:53→20:57)
[2023-01-19] MEDS: HEPARIN SODIUM,PORCINE/PF 5,000 UNIT/0.5 ML SYRINGE SQ SCH ×2 (07:56→20:56)
[2023-01-19] MEDS: amLODIPine 5 MG TAB PO SCH (07:56)
[2023-01-19] MEDS: ESCITALOPRAM 10 MG TAB PO SCH (07:56)
[2023-01-19] MEDS: FAMOTIDINE 20 MG/2 ML VIAL IV SCH ×2 (07:56→20:57)
[2023-01-19] MEDS: DOXYCYCLINE 100 MG CAP PO SCH ×2 (07:56→20:56)
[2023-01-19] MEDS: MONTELUKAST 10 MG TAB PO SCH (07:57)
[2023-01-19] MEDS: ALPRAZolam 0.5 MG TAB PO PRN ×2 (09:45→21:03)
--- NOTE | 2023-01-19 10:37 | CA ---
Transthoracic Echo Report Name: Rachel Hearn Age: 62 Gender: F : 1960 Exam Date: 01/19/2023 07:58 Exam Location: [place] [facility] Ht (in): 67 Wt (lb): 163 Ordering Physician: Ramon Leo MD Attending/Referring Phys: Call Center Receptionist Heidi Gamboa [facility] Procedure CPT: Indications: dyspnea Cardiac Hx: Technical Quality: Fair Contrast 1: Total Dose (mL): Contrast 2: Total Dose (mL): MEASUREMENTS (Male / Female) Normal Values 2D ECHO LV Diastolic Diameter PLAX 5.1 cm 4.2 - 5.9 / 3.9 - 5.3 cm LV Systolic Diameter PLAX 3.1 cm IVS Diastolic Thickness 0.9 cm 0.6 - 1.0 / 0.6 - 0.9 cm LVPW Diastolic Thickness 0.8 cm 0.6 - 1.0 / 0.6 - 0.9 cm LV Relative Wall Thickness 0.3 LVOT Diameter 2.0 cm Aortic Root Diameter 2.6 cm M-MODE AV Cusp Separation MM 1.8 cm DOPPLER AV Peak Velocity 160.0 cm/s AV Peak Gradient 10.2 mmHg AV Mean Velocity 112.7 cm/s AV Mean Gradient 5.8 mmHg AV Velocity Time Integral 34.7 cm LVOT Peak Velocity 118.6 cm/s LVOT Peak Gradient 5.6 mmHg LVOT Velocity Time Integral 26.1 cm LVOT Stroke Volume 78.3 cm??? LVOT Stroke Volume Index 42.2 ml/m??? LVOT Cardiac Index 2331.3 cm???/min???m??? AV Area Cont Eq vti 2.3 cm??? AV Area Cont Eq pk 2.2 cm??? Mitral E Point Velocity 98.2 cm/s Mitral A Point Velocity 80.4 cm/s Mitral E to A Ratio 1.2 MV Deceleration Time 131.6 ms LV E' Lateral Velocity 8.1 cm/s Mitral E to LV E' Lateral Ratio 12.1 LV E' Septal Velocity 8.1 cm/s Mitral E to LV E' Septal Ratio 12.1 TR Peak Velocity 288.8 cm/s TR Peak Gradient 33.4 mmHg Right Atrial Pressure 15.0 mmHg Pulmonary Artery Systolic Pressu 48.4 mmHg Right Ventricular Systolic Press 48.4 mmHg FINDINGS Left Ventricle Normal Left ventricular size, wall thickness, systolic function with no obvious regional wall motion abnormalities. Left ventricular ejection fraction is estimated at 55-60 %. Right Ventricle Right ventricle at upper limits of normal. Moderate pulmonary hypertension. Right Atrium Normal right atrial size. Left Atrium Normal left atrial size. Mitral Valve Structurally normal mitral valve. Mitral valve thickened. Mild mitral regurgitation. Aortic Valve Trileaflet aortic valve. Thickened aortic valve without stenosis. No aortic regurgitation. Tricuspid Valve Structurally normal tricuspid valve. Mild tricuspid regurgitation. Pulmonic Valve Structurally normal pulmonic valve. No pulmonic regurgitation. Pericardium No pericardial effusion. Aorta Normal size aortic root and proximal ascending aorta. CONCLUSIONS 1. Normal left ventricular size and systolic function 2. Moderate pulmonary hypertension 3. Mild mitral and tricuspid regurgitation Previewed by: Dr. Kaylee Lynn MD (Electronically Signed) Final Date: 19 January 2023 10:36
[2023-01-19 12:07] LABS: Glucose,Whole Blood 128 mg/dL (70-110)
[2023-01-19 17:29] LABS: Glucose,Whole Blood 131 mg/dL (70-110)
[2023-01-19 20:16] LABS: Glucose,Whole Blood 147 mg/dL (70-110)
--- NOTE | 2023-01-19 21:55 | PN ---
PROGRESS NOTE SUBJECTIVE: Severe COPD. Admitted. She feels much better with the breathing treatments and steroids that were given to her while in the hospital now. Wait for possible discharge in the next few days. She is on 2 L oxygen. She had a chest CT, which was negative. OBJECTIVE: VITAL SIGNS: Reviewed. ABDOMEN: Soft. GENERAL: She is up ambulating. CARDIOVASCULAR: S1 and S2. LUNGS: Decreased breath sounds x4. PSYCHIATRIC: Fair mood and affect. recommendations. She is bronchospastic. Chest CT was negative. Continues on breathing medication. Prognosis is guarded. MMODL / IJN: [id number] /
[2023-01-20] MEDS: methylPREDNISolone SOD SUCCI 125 MG/2 ML VIAL IV SCH ×5 (00:20→23:10)
[2023-01-20] MEDS: HYDROcodone/APAP 7.5-325MG 1 EACH TAB PO PRN ×4 (01:42→22:12)
[2023-01-20] MEDS: ACETAMINOPHEN TAB 325 MG TAB PO PRN (06:15)
[2023-01-20 07:12] LABS: Glucose,Whole Blood 125 mg/dL (70-110)
[2023-01-20] MEDS: INSULIN ASPART (NovoLOG) 100 UNIT/ML VIAL SQ SCH ×4 (07:18→20:35)
[2023-01-20] MEDS: FORMOTEROL FUMARATE 20 MCG/2 ML NEBU INHALATION SCH ×2 (08:25→20:17)
[2023-01-20] MEDS: IPRATROPIUM-ALBUTEROL 3 ML NEB INHALATION SCH ×4 (08:25→20:17)
[2023-01-20] MEDS: BUDESONIDE 1 MG/2 ML NEBU INHALATION SCH ×2 (08:25→20:17)
[2023-01-20] MEDS: ALPRAZolam 0.5 MG TAB PO PRN ×2 (09:46→22:11)
[2023-01-20] MEDS: amLODIPine 5 MG TAB PO SCH (09:47)
[2023-01-20] MEDS: ESCITALOPRAM 10 MG TAB PO SCH (09:47)
[2023-01-20] MEDS: DOXYCYCLINE 100 MG CAP PO SCH ×2 (09:47→20:34)
[2023-01-20] MEDS: MONTELUKAST 10 MG TAB PO SCH (09:47)
[2023-01-20] MEDS: HEPARIN SODIUM,PORCINE/PF 5,000 UNIT/0.5 ML SYRINGE SQ SCH ×2 (09:48→20:35)
[2023-01-20] MEDS: FAMOTIDINE 20 MG/2 ML VIAL IV SCH ×2 (09:48→20:34)
[2023-01-20 11:47] LABS: Glucose,Whole Blood 107 mg/dL (70-110)
--- NOTE | 2023-01-20 13:17 | P.PN ---
Subjective Progress Note Date: 01/20/23 this is a 62-year-old female known history of severe COPD, normally sees Dr. Garcia for her COPD. Patient is on oxygen but she is not compliant with her. She is multiple bronchodilators, quit smoking a few months ago. Patient was admitted last night with symptoms of acute exacerbation of COPD. Her symptoms for the last 4 or 5 days have been symptoms of cough wheezing shortness of breath. Cough has been productive with brownish phlegm, but no fever, no chills, no hemoptysis, and no chest pain.chest x-ray showed no active active cardiopulmonary disease, she does have COPD findings.labs including CBC, basic metabolic profile, renal profile are all normal.patient was placed on BiPAP at 14/6 and 45% and she was noted to have significant dyspnea on her initial presentation. By the time I evaluated the patient, she was feeling better, breathing easier, nonetheless on physical examination she had diffuse rhonchi and wheezes bilaterally. Patient was reevaluated today 01/17/23, patient is feeling better less cough and less wheezing less shortness of breath improved but not back to baseline. Nan rodriguez is obviously responding well to her present course of bronchodilators and steroids, and she will probably need another day of IV Solu-Medrol before we could consider discharge planning on this patient. Progress note dated 01/18/2023. 62-year-old female with history of COPD. She was admitted to the hospital a couple days ago with a COPD exacerbation. She came in with shortness of breath, cough, wheezing, chest tightness, and brown phlegm production. The patient is on 2 L nasal cannula. She's not receiving any IV fluids. The patient is seen today in room 357. The only new labs today is a glucose of 161. Progress note dated 01/19/2023. 62-year-old female seen today in room 518. She was admitted with a diagnosis of COPD exacerbation. The patient continues on oxygen at 2 L. No IV fluids. She still very short of breath, bronchospastic, and coughing quite a bit. She probably needs 1 more day in the hospital. No new laboratory data as yet. Microbiology data is negative are pending. Chest CT was negative for any acute process. She remains on Pulmicort, formoterol, albuterol, ipratropium bromide, and Solu-Medrol. She's also on Singulair, 10 mg. The patient is seen today 01/20/2023 in follow-up on the regular medical floor. She is maintaining good O2 saturations in the 90s on room air. She is quite bronchospastic and wheezing. Still with some chest tightness. Not much improvement. She is continued on DuoNeb inhalations, Pulmicort and Perforomist inhalations, Singulair, Solu-Medrol. Empiric antibiotics in the form of doxycycline. Heparin for DVT prophylaxis. Blood sugar 107. Objective - Vital Signs Vital signs: Vital Signs Temp 98.7 F 01/20/23 11:20 Pulse 76 01/20/23 12:42 Resp 18 01/20/23 11:20 BP 162/91 01/20/23 11:20 Pulse Ox 95 01/20/23 11:20 FiO2 35 01/16/23 16:05 Intake & Output 01/19/23 01/20/23 01/20/23 18:59 06:59 18:59 Intake Total 222 Balance 222 Intake: Oral 222 Other: Voiding Method Toilet # Voids 3 1 - Exam GENERAL EXAM: Alert, very pleasant 62-year-old female, on room air, comfortable in no apparent distress. HEAD: Normocephalic. EYES: Normal reaction of pupils, equal size. NOSE: Clear with pink turbinates. THROAT: No erythema or exudates. NECK: No masses, no JVD. CHEST: No chest wall deformity. LUNGS: Equal air entry with bilateral end expiratory wheeze, scattered rhonchi. CVS: S1 and S2 normal with no audible murmur, regular rhythm. ABDOMEN: No hepatosplenomegaly, normal bowel sounds, no guarding or rigidity. SPINE: No scoliosis or deformity SKIN: No rashes CENTRAL NERVOUS SYSTEM: No focal deficits, tone is normal in all 4 extremities. EXTREMITIES: There is no peripheral edema. No clubbing, no cyanosis. Peripheral pulses are intact. - Labs CBC & Chem 7: 01/16/23 07:01 01/16/23 07:01 Labs: Abnormal Lab Results - Last 24 Hours (Table) 01/19/23 01/19/23 01/20/23 Range/Units 17:28 20:15 07:09 POC Glucose (mg/dL) 131 H 147 H 125 H (70-110) mg/dL Assessment and Plan Assessment: Acute on chronic hypoxemic respiratory failure, secondary to COPD exacerbation. History of chronic obstructive pulmonary disease. Acute tracheobronchitis. History of previous tobacco use. Plan: The patient was seen and evaluated Medications and labs reviewed Not showing much improvement We'll plan for bronchoscopy with BAL in the a.m. Continue current treatment plan We will continue to follow I have personally seen and examined the patient, performed the documentation and the assessment and plan as written. Number of minutes spent on the visit: 10.
[2023-01-20 19:54] LABS: Glucose,Whole Blood 195 mg/dL (70-110)
--- NOTE | 2023-01-20 20:27 | PN ---
PROGRESS NOTE SUBJECTIVE: We are waiting to get clearance from Pulmonary for the patient going home. The patient was specifically seen by Pulmonary. The patient has shown little improvement today, thought about bronchoscopy, airway examination, therapeutic lavage and BAL. She is in agreement, possibly doing it tomorrow and wait for that to improve her lungs, that is a good idea. OBJECTIVE: VITAL SIGNS: Pulse 76, respiratory rate 16 to 18, blood pressure 162/91, O2 saturation 95%. HEENT: Normocephalic, atraumatic. Pupils equal, round, and reactive. NECK: Supple. LUNGS: Clear. CARDIOVASCULAR: S1, S2. HEMATOLOGY: Negative for Homans. PSYCH: Fair mood and affect. ASSESSMENT: Acute on chronic hypoxemic respiratory failure, chronic obstructive pulmonary disease, tracheobronchitis, nicotine addiction, bronchoscopy with BAL in the morning. Continue breathing treatments. Prognosis guarded. MMODL / IJN: [id number] /
[2023-01-21] MEDS: methylPREDNISolone SOD SUCCI 125 MG/2 ML VIAL IV SCH ×3 (05:26→17:32)
[2023-01-21 07:12] LABS: Glucose,Whole Blood 125 mg/dL (70-110)
[2023-01-21] MEDS: INSULIN ASPART (NovoLOG) 100 UNIT/ML VIAL SQ SCH ×4 (07:41→20:06)
[2023-01-21] MEDS: amLODIPine 5 MG TAB PO SCH (08:22)
[2023-01-21] MEDS: DOXYCYCLINE 100 MG CAP PO SCH ×2 (08:23→20:00)
[2023-01-21] MEDS: HEPARIN SODIUM,PORCINE/PF 5,000 UNIT/0.5 ML SYRINGE SQ SCH ×2 (08:24→20:00)
[2023-01-21] MEDS: ESCITALOPRAM 10 MG TAB PO SCH (08:24)
[2023-01-21] MEDS: MONTELUKAST 10 MG TAB PO SCH (08:25)
[2023-01-21] MEDS: HYDROcodone/APAP 7.5-325MG 1 EACH TAB PO PRN ×2 (08:26→20:06)
[2023-01-21] MEDS: FORMOTEROL FUMARATE 20 MCG/2 ML NEBU INHALATION SCH ×2 (08:48→19:57)
[2023-01-21] MEDS: BUDESONIDE 1 MG/2 ML NEBU INHALATION SCH ×2 (08:48→19:42)
[2023-01-21] MEDS: IPRATROPIUM-ALBUTEROL 3 ML NEB INHALATION SCH ×4 (08:48→19:42)
[2023-01-21] MEDS: FAMOTIDINE 20 MG/2 ML VIAL IV SCH ×2 (08:52→20:00)
[2023-01-21] MEDS: ALPRAZolam 0.5 MG TAB PO PRN ×2 (08:52→20:06)
[2023-01-21 11:55] LABS: Glucose,Whole Blood 110 mg/dL (70-110)
[2023-01-21] MEDS ORDERED: KETAMINE 10 MG/ML 20 ML VIAL ONE (14:03)
[2023-01-21] MEDS ORDERED: LIDOCAINE 2% INJ 20 MG/ML (2 ML VIAL) ONE (14:03)
[2023-01-21] MEDS ORDERED: fentaNYL (PF) 50 MCG/ML 2 ML AMP ONE (14:03)
[2023-01-21] MEDS ORDERED: MIDAZOLAM 2 MG/2 ML VIAL ONE (14:03)
[2023-01-21] MEDS ORDERED: PROPOFOL 10 MG/ML 20 ML VIAL IV ONE (14:03)
[2023-01-21] MEDS ORDERED: LACTATED RINGERS 1,000 ML IV ONE ×2 (14:19)
--- NOTE | 2023-01-21 15:14 | P.PN ---
Subjective Progress Note Date: 01/21/23 this is a 62-year-old female known history of severe COPD, normally sees Dr. Garcia for her COPD. Patient is on oxygen but she is not compliant with her. She is multiple bronchodilators, quit smoking a few months ago. Patient was admitted last night with symptoms of acute exacerbation of COPD. Her symptoms for the last 4 or 5 days have been symptoms of cough wheezing shortness of breath. Cough has been productive with brownish phlegm, but no fever, no chills, no hemoptysis, and no chest pain.chest x-ray showed no active active cardiopulmonary disease, she does have COPD findings.labs including CBC, basic metabolic profile, renal profile are all normal.patient was placed on BiPAP at 14/6 and 45% and she was noted to have significant dyspnea on her initial presentation. By the time I evaluated the patient, she was feeling better, breathing easier, nonetheless on physical examination she had diffuse rhonchi and wheezes bilaterally. Patient was reevaluated today 01/17/23, patient is feeling better less cough and less wheezing less shortness of breath improved but not back to baseline. Nan rodriguez is obviously responding well to her present course of bronchodilators and steroids, and she will probably need another day of IV Solu-Medrol before we could consider discharge planning on this patient. Progress note dated 01/18/2023. 62-year-old female with history of COPD. She was admitted to the hospital a couple days ago with a COPD exacerbation. She came in with shortness of breath, cough, wheezing, chest tightness, and brown phlegm production. The patient is on 2 L nasal cannula. She's not receiving any IV fluids. The patient is seen today in room 357. The only new labs today is a glucose of 161. Progress note dated 01/19/2023. 62-year-old female seen today in room 518. She was admitted with a diagnosis of COPD exacerbation. The patient continues on oxygen at 2 L. No IV fluids. She still very short of breath, bronchospastic, and coughing quite a bit. She probably needs 1 more day in the hospital. No new laboratory data as yet. Microbiology data is negative are pending. Chest CT was negative for any acute process. She remains on Pulmicort, formoterol, albuterol, ipratropium bromide, and Solu-Medrol. She's also on Singulair, 10 mg. The patient is seen today 01/20/2023 in follow-up on the regular medical floor. She is maintaining good O2 saturations in the 90s on room air. She is quite bronchospastic and wheezing. Still with some chest tightness. Not much improvement. She is continued on DuoNeb inhalations, Pulmicort and Perforomist inhalations, Singulair, Solu-Medrol. Empiric antibiotics in the form of doxycycline. Heparin for DVT prophylaxis. Blood sugar 107. The patient is seen today 01/21/2023 in follow-up on the regular medical floor. She is currently sitting up in bed. Awake and alert in no acute distress. She is a bit better today compared to yesterday. Still not back to her baseline. Plan is for bronchoscopy with BAL today. blood glucose 110. She is continued on DuoNeb inhalations, Pulmicort and Perforomist inhalations, Solu-Medrol. Empiric antibiotics in the form of Vibramycin. Heparin for DVT prophylaxis. Objective - Vital Signs Vital signs: Vital Signs Temp 98.2 F 01/21/23 07:10 Pulse 81 01/21/23 15:02 Resp 14 01/21/23 15:02 BP 157/51 01/21/23 15:02 Pulse Ox 94 L 01/21/23 15:02 FiO2 35 01/16/23 16:05 Intake & Output 01/20/23 01/21/23 01/21/23 18:59 06:59 18:59 Intake Total 422 300 Balance 422 300 Intake: IV 300 Oral 422 Other: Voiding Method Toilet # Voids 4 1 - Exam GENERAL EXAM: Alert, oriented 62-year-old female, on room air, comfortable in no apparent distress. HEAD: Normocephalic. EYES: Normal reaction of pupils, equal size. NOSE: Clear with pink turbinates. THROAT: No erythema or exudates. NECK: No masses, no JVD. CHEST: No chest wall deformity. LUNGS: Equal air entry with bilateral end expiratory wheeze, scattered rhonchi. CVS: S1 and S2 normal with no audible murmur, regular rhythm. ABDOMEN: No hepatosplenomegaly, normal bowel sounds, no guarding or rigidity. SPINE: No scoliosis or deformity SKIN: No rashes CENTRAL NERVOUS SYSTEM: No focal deficits, tone is normal in all 4 extremities. EXTREMITIES: There is no peripheral edema. No clubbing, no cyanosis. Peripheral pulses are intact. - Labs CBC & Chem 7: 01/16/23 07:01 01/16/23 07:01 Labs: Abnormal Lab Results - Last 24 Hours (Table) 01/20/23 01/21/23 Range/Units 19:52 07:11 POC Glucose (mg/dL) 195 H 125 H (70-110) mg/dL Assessment and Plan Assessment: Acute on chronic hypoxemic respiratory failure, secondary to COPD exacerbation. History of chronic obstructive pulmonary disease. Acute tracheobronchitis. History of previous tobacco use. Plan: The patient was seen and evaluated Medications and labs reviewed Continue the current treatment plan Bronchoscopy with BAL today We will continue to follow I have personally seen and examined the patient, performed the documentation and the assessment and plan as written. Number of minutes spent on the visit: 10.
[2023-01-21 17:09] LABS: Glucose,Whole Blood 113 mg/dL (70-110)
[2023-01-21] MEDS: LOSARTAN-HCTZ 50-12.5 MG 1 EACH TAB PO SCH (17:32)
--- NOTE | 2023-01-21 17:39 | PCN ---
PROCEDURE NOTE PSYCHIATRIC: Bronchoscopy, airway examination, therapeutic lavage, and bronchoalveolar lavage PREOPERATIVE DIAGNOSES: Chronic obstructive pulmonary disease exacerbation, retained secretions, and mucus plugs. POSTOPERATIVE DIAGNOSES: Chronic obstructive pulmonary disease exacerbation, retained secretions, and mucus plugs. [employer] CONSULTANT: Dr. Constanza Torres. ANESTHESIA PROVIDED: General anesthesia. The patient's procedure took place in room #1 [facility]. There were informed consent and universal time-out. DESCRIPTION OF PROCEDURE: After the patient was adequately sedated and being fully monitored, the bronchoscope was inserted through the right nostril. It passed through the right nasopharynx into the oropharynx. The hypopharynx was identified and topicalized. The hypopharyngeal structures including anterior commissure, true cords, false cords, arytenoids, piriform sinuses - right and left, and valleculae, all appeared relatively normal. The glottic opening was topicalized. The bronchoscope was pushed through the glottic opening into the trachea. The trachea appeared relatively normal. There were thick secretions noted in the [id number] trachea. They were suctioned. The tracheal lavon was sharp. The right and left mainstem were topicalized. The right upper lobe and its 3 segments, the right middle lobe and its 2 segments, the right lower lobe and its 5 segments, the left upper lobe proper and its 2 segments, the lingula and its 2 segments, and the left lower lobe and its 4 segments, all had similar findings of thick mucus plugs. They were quite distant and tenacious and were very difficult to suction. They were suctioned with the aid of saline lavage. There was no dominant mass or tumor. There were diffuse erythema and hyperemia of the airways. There was some mucosal friability. The patient had thick secretions noted as I mentioned throughout. Again, they were suctioned. The bronchoscope was then wedged into the right middle lobe. We did a formal BAL, 30 mL of fluid was recovered and will be sent for analysis. The patient tolerated the procedure well without complication. She was stable throughout the procedure. The patient will be recovered and go back to her room. There was no immediate complication. MMODL / IJN: [id number] /
[2023-01-21 20:02] LABS: Glucose,Whole Blood 228 mg/dL (70-110)
[2023-01-22] MEDS: methylPREDNISolone SOD SUCCI 125 MG/2 ML VIAL IV SCH ×5 (00:10→23:19)
[2023-01-22] MEDS: HYDROcodone/APAP 7.5-325MG 1 EACH TAB PO PRN ×4 (01:58→23:59)
[2023-01-22 05:05] LABS: Appearance,BF Bloody (Clear); RBC, Body Fluid 1531250 /UL (0-2000)
[2023-01-22 07:11] LABS: Glucose,Whole Blood 131 mg/dL (70-110)
[2023-01-22] MEDS: IPRATROPIUM-ALBUTEROL 3 ML NEB INHALATION SCH ×4 (08:32→20:18)
[2023-01-22] MEDS: FORMOTEROL FUMARATE 20 MCG/2 ML NEBU INHALATION SCH ×2 (08:32→20:18)
[2023-01-22] MEDS: BUDESONIDE 1 MG/2 ML NEBU INHALATION SCH ×2 (08:32→20:18)
[2023-01-22] MEDS: amLODIPine 5 MG TAB PO SCH (09:42)
[2023-01-22] MEDS: HEPARIN SODIUM,PORCINE/PF 5,000 UNIT/0.5 ML SYRINGE SQ SCH ×2 (09:42→20:59)
[2023-01-22] MEDS: DOXYCYCLINE 100 MG CAP PO SCH ×2 (09:42→21:00)
[2023-01-22] MEDS: ESCITALOPRAM 10 MG TAB PO SCH (09:42)
[2023-01-22] MEDS: MONTELUKAST 10 MG TAB PO SCH (09:43)
[2023-01-22] MEDS: LOSARTAN-HCTZ 50-12.5 MG 1 EACH TAB PO SCH (09:43)
[2023-01-22] MEDS: ALPRAZolam 0.5 MG TAB PO PRN ×2 (09:43→21:09)
[2023-01-22] MEDS: INSULIN ASPART (NovoLOG) 100 UNIT/ML VIAL SQ SCH ×4 (09:55→20:40)
[2023-01-22] MEDS: FAMOTIDINE 20 MG/2 ML VIAL IV SCH ×2 (10:03→21:00)
[2023-01-22 11:44] LABS: Glucose,Whole Blood 165 mg/dL (70-110)
--- NOTE | 2023-01-22 11:56 | P.PN ---
Subjective Progress Note Date: 01/22/23 this is a 62-year-old female known history of severe COPD, normally sees Dr. Garcia for her COPD. Patient is on oxygen but she is not compliant with her. She is multiple bronchodilators, quit smoking a few months ago. Patient was admitted last night with symptoms of acute exacerbation of COPD. Her symptoms for the last 4 or 5 days have been symptoms of cough wheezing shortness of breath. Cough has been productive with brownish phlegm, but no fever, no chills, no hemoptysis, and no chest pain.chest x-ray showed no active active cardiopulmonary disease, she does have COPD findings.labs including CBC, basic metabolic profile, renal profile are all normal.patient was placed on BiPAP at 14/6 and 45% and she was noted to have significant dyspnea on her initial presentation. By the time I evaluated the patient, she was feeling better, breathing easier, nonetheless on physical examination she had diffuse rhonchi and wheezes bilaterally. Patient was reevaluated today 01/17/23, patient is feeling better less cough and less wheezing less shortness of breath improved but not back to baseline. Nan rodriguez is obviously responding well to her present course of bronchodilators and steroids, and she will probably need another day of IV Solu-Medrol before we could consider discharge planning on this patient. Progress note dated 01/18/2023. 62-year-old female with history of COPD. She was admitted to the hospital a couple days ago with a COPD exacerbation. She came in with shortness of breath, cough, wheezing, chest tightness, and brown phlegm production. The patient is on 2 L nasal cannula. She's not receiving any IV fluids. The patient is seen today in room 357. The only new labs today is a glucose of 161. Progress note dated 01/19/2023. 62-year-old female seen today in room 518. She was admitted with a diagnosis of COPD exacerbation. The patient continues on oxygen at 2 L. No IV fluids. She still very short of breath, bronchospastic, and coughing quite a bit. She probably needs 1 more day in the hospital. No new laboratory data as yet. Microbiology data is negative are pending. Chest CT was negative for any acute process. She remains on Pulmicort, formoterol, albuterol, ipratropium bromide, and Solu-Medrol. She's also on Singulair, 10 mg. The patient is seen today 01/20/2023 in follow-up on the regular medical floor. She is maintaining good O2 saturations in the 90s on room air. She is quite bronchospastic and wheezing. Still with some chest tightness. Not much improvement. She is continued on DuoNeb inhalations, Pulmicort and Perforomist inhalations, Singulair, Solu-Medrol. Empiric antibiotics in the form of doxycycline. Heparin for DVT prophylaxis. Blood sugar 107. The patient is seen today 01/21/2023 in follow-up on the regular medical floor. She is currently sitting up in bed. Awake and alert in no acute distress. She is a bit better today compared to yesterday. Still not back to her baseline. Plan is for bronchoscopy with BAL today. blood glucose 110. She is continued on DuoNeb inhalations, Pulmicort and Perforomist inhalations, Solu-Medrol. Empiric antibiotics in the form of Vibramycin. Heparin for DVT prophylaxis. The patient is seen today 01/22/2023 in follow-up on the regular medical floor. She is currently sitting up in a chair at the bedside. Awake and alert in no acute distress. Maintaining O2 saturation in the 90s on 2 L/m per nasal cannula. She continues to have some cough, congestion and wheezing. Not much improvement following bronchoscopy with BAL yesterday. She did have many retained secretions that were suctioned out. Cultures and cytology pending. She remains on DuoNeb inhalations, Pulmicort and Perforomist inhalations, IV Solu-Medrol. Heparin for DVT prophylaxis. Empiric antibiotics in the form of doxycycline. Objective - Vital Signs Vital signs: Vital Signs Temp 97.4 F L 01/22/23 07:35 Pulse 67 01/22/23 09:00 Resp 18 01/22/23 08:00 BP 133/69 01/22/23 09:00 Pulse Ox 98 01/22/23 08:32 FiO2 35 01/16/23 16:05 Intake & Output 01/21/23 01/22/23 01/22/23 18:59 06:59 18:59 Intake Total 300 822 Balance 300 822 Intake: IV 300 Oral 822 Other: Voiding Method Toilet Toilet # Voids 2 # Bowel Movements 0 - Exam GENERAL EXAM: Alert, oriented 62-year-old female, up in a chair, on 2 L nasal cannula, fairly comfortable in no apparent distress. HEAD: Normocephalic. EYES: Normal reaction of pupils, equal size. NOSE: Clear with pink turbinates. THROAT: No erythema or exudates. NECK: No masses, no JVD. CHEST: No chest wall deformity. LUNGS: Equal air entry with bilateral end expiratory wheeze, scattered rhonchi. CVS: S1 and S2 normal with no audible murmur, regular rhythm. ABDOMEN: No hepatosplenomegaly, normal bowel sounds, no guarding or rigidity. SPINE: No scoliosis or deformity SKIN: No rashes CENTRAL NERVOUS SYSTEM: No focal deficits, tone is normal in all 4 extremities. EXTREMITIES: There is no peripheral edema. No clubbing, no cyanosis. Peripheral pulses are intact. - Labs CBC & Chem 7: 01/16/23 07:01 01/16/23 07:01 Labs: Abnormal Lab Results - Last 24 Hours (Table) 01/21/23 01/21/23 01/21/23 Range/Units 14:00 17:08 20:00 POC Glucose (mg/dL) 113 H 228 H (70-110) mg/dL Fluid Appearance Bloody A (Clear) 01/22/23 01/22/23 Range/Units 07:04 11:42 POC Glucose (mg/dL) 131 H 165 H (70-110) mg/dL Fluid Appearance (Clear) Assessment and Plan Assessment: Acute on chronic hypoxemic respiratory failure, secondary to COPD exacerbation. Status post bronchoscopy with BAL on 01/21/2023. Cultures and cytology pending. History of chronic obstructive pulmonary disease. Acute tracheobronchitis. History of previous tobacco use. Plan: The patient was seen and evaluated Medications and labs reviewed Continue the current treatment plan She has been slow to progress Status post bronchoscopy with BAL Titrate the FiO2 as tolerated Increase her activity as tolerated We will continue to follow I have personally seen and examined the patient, performed the documentation and the assessment and plan as written. Number of minutes spent on the visit: 10.
--- NOTE | 2023-01-22 12:24 | PN ---
PROGRESS NOTE DATE OF SERVICE: 01/22/2023 SUBJECTIVE: This is a 62-year-old woman, who was admitted with COPD and acute respiratory failure, is being closely monitored. Dr. Swanson performed a bronchoscopy. The patient is still short of breath. Retained secretions and mucus plugs are noted. No chest pain. No palpitation. OBJECTIVE: VITAL SIGNS: Pulse is 70, blood pressure 130/69, respirations 20. HEENT: Conjunctivae normal. CARDIOVASCULAR: S1, S2. RESPIRATIONS: Bilateral scattered rhonchi and crackles. ABDOMEN: Soft. NERVOUS SYSTEM: Nonfocal. LABORATORY DATA: Reviewed. ASSESSMENT: 1. Chronic obstructive pulmonary disease acute exacerbation with acute tracheobronchitis. 2. Status post bronchoscopy. 3. History of nicotine dependence. 4. History of anxiety. RECOMMENDATIONS: Recommended to continue current management. Continue symptomatic treatment. Continue with IV steroids, bronchodilators. Continue the vancomycin. Continue the antibiotics. Guarded prognosis. Further recommendations to follow. See orders for further details. MMODL / IJN: [id number] /
[2023-01-22 17:03] LABS: Glucose,Whole Blood 129 mg/dL (70-110)
[2023-01-22 20:18] LABS: Glucose,Whole Blood 137 mg/dL (70-110)
[2023-01-22] MEDS: ACETAMINOPHEN TAB 325 MG TAB PO PRN (21:08)
[2023-01-23] MEDS: methylPREDNISolone SOD SUCCI 125 MG/2 ML VIAL IV SCH ×3 (05:45→18:27)
[2023-01-23] MEDS: HYDROcodone/APAP 7.5-325MG 1 EACH TAB PO PRN ×3 (06:06→18:26)
[2023-01-23 07:40] LABS: Glucose,Whole Blood 134 mg/dL (70-110)
[2023-01-23] MEDS: BUDESONIDE 1 MG/2 ML NEBU INHALATION SCH ×2 (07:45→20:22)
[2023-01-23] MEDS: IPRATROPIUM-ALBUTEROL 3 ML NEB INHALATION SCH ×4 (07:45→20:22)
[2023-01-23] MEDS: FORMOTEROL FUMARATE 20 MCG/2 ML NEBU INHALATION SCH ×2 (07:45→20:22)
[2023-01-23] MEDS: INSULIN ASPART (NovoLOG) 100 UNIT/ML VIAL SQ SCH ×4 (08:19→21:00)
[2023-01-23] MEDS: HEPARIN SODIUM,PORCINE/PF 5,000 UNIT/0.5 ML SYRINGE SQ SCH ×2 (10:10→21:01)
[2023-01-23] MEDS: amLODIPine 5 MG TAB PO SCH (10:11)
[2023-01-23] MEDS: ESCITALOPRAM 10 MG TAB PO SCH (10:11)
[2023-01-23] MEDS: MONTELUKAST 10 MG TAB PO SCH (10:11)
[2023-01-23] MEDS: DOXYCYCLINE 100 MG CAP PO SCH ×2 (10:11→21:01)
[2023-01-23] MEDS: LOSARTAN-HCTZ 50-12.5 MG 1 EACH TAB PO SCH (10:11)
[2023-01-23] MEDS: FAMOTIDINE 20 MG/2 ML VIAL IV SCH ×2 (10:19→21:01)
[2023-01-23] MEDS: ALPRAZolam 0.5 MG TAB PO PRN ×2 (10:26→22:02)
[2023-01-23] MEDS: ACETAMINOPHEN TAB 325 MG TAB PO PRN (10:26)
[2023-01-23 10:57] VITALS: BMI 25.5
--- NOTE | 2023-01-23 12:05 | XR ---
EXAMINATION TYPE: XR chest 1V portable DATE OF EXAM: 01/23/2023 11:52 AM COMPARISON: Chest radiographs from 01/16/2023 TECHNIQUE: XR chest 1V portable Portable AP radiograph of the chest. CLINICAL INDICATION:Female, 62 years old with history of left chest pain; FINDINGS: Lungs/Pleura: There is no evidence of pleural effusion, focal consolidation, or pneumothorax. Hyperi nflation. Chronic senescent parenchymal change. Pulmonary vascularity: Unremarkable. Heart/mediastinum: Cardiomediastinal silhouette is unremarkable. Musculoskeletal: No acute osseous pathology. Remote fracture deformity left proximal humerus. IMPRESSION: 1. No acute cardiopulmonary disease process. 2. COPD changes.
[2023-01-23 12:21] LABS: Glucose,Whole Blood 90 mg/dL (70-110)
--- NOTE | 2023-01-23 12:21 | P.PN ---
Subjective Progress Note Date: 01/23/23 this is a 62-year-old female known history of severe COPD, normally sees Dr. Garcia for her COPD. Patient is on oxygen but she is not compliant with her. She is multiple bronchodilators, quit smoking a few months ago. Patient was admitted last night with symptoms of acute exacerbation of COPD. Her symptoms for the last 4 or 5 days have been symptoms of cough wheezing shortness of breath. Cough has been productive with brownish phlegm, but no fever, no chills, no hemoptysis, and no chest pain.chest x-ray showed no active active cardiopulmonary disease, she does have COPD findings.labs including CBC, basic metabolic profile, renal profile are all normal.patient was placed on BiPAP at 14/6 and 45% and she was noted to have significant dyspnea on her initial presentation. By the time I evaluated the patient, she was feeling better, breathing easier, nonetheless on physical examination she had diffuse rhonchi and wheezes bilaterally. Patient was reevaluated today 01/17/23, patient is feeling better less cough and less wheezing less shortness of breath improved but not back to baseline. Nan rodriguez is obviously responding well to her present course of bronchodilators and steroids, and she will probably need another day of IV Solu-Medrol before we could consider discharge planning on this patient. Progress note dated 01/18/2023. 62-year-old female with history of COPD. She was admitted to the hospital a couple days ago with a COPD exacerbation. She came in with shortness of breath, cough, wheezing, chest tightness, and brown phlegm production. The patient is on 2 L nasal cannula. She's not receiving any IV fluids. The patient is seen today in room 357. The only new labs today is a glucose of 161. Progress note dated 01/19/2023. 62-year-old female seen today in room 518. She was admitted with a diagnosis of COPD exacerbation. The patient continues on oxygen at 2 L. No IV fluids. She still very short of breath, bronchospastic, and coughing quite a bit. She probably needs 1 more day in the hospital. No new laboratory data as yet. Microbiology data is negative are pending. Chest CT was negative for any acute process. She remains on Pulmicort, formoterol, albuterol, ipratropium bromide, and Solu-Medrol. She's also on Singulair, 10 mg. The patient is seen today 01/20/2023 in follow-up on the regular medical floor. She is maintaining good O2 saturations in the 90s on room air. She is quite bronchospastic and wheezing. Still with some chest tightness. Not much improvement. She is continued on DuoNeb inhalations, Pulmicort and Perforomist inhalations, Singulair, Solu-Medrol. Empiric antibiotics in the form of doxycycline. Heparin for DVT prophylaxis. Blood sugar 107. The patient is seen today 01/21/2023 in follow-up on the regular medical floor. She is currently sitting up in bed. Awake and alert in no acute distress. She is a bit better today compared to yesterday. Still not back to her baseline. Plan is for bronchoscopy with BAL today. blood glucose 110. She is continued on DuoNeb inhalations, Pulmicort and Perforomist inhalations, Solu-Medrol. Empiric antibiotics in the form of Vibramycin. Heparin for DVT prophylaxis. The patient is seen today 01/22/2023 in follow-up on the regular medical floor. She is currently sitting up in a chair at the bedside. Awake and alert in no acute distress. Maintaining O2 saturation in the 90s on 2 L/m per nasal cannula. She continues to have some cough, congestion and wheezing. Not much improvement following bronchoscopy with BAL yesterday. She did have many retained secretions that were suctioned out. Cultures and cytology pending. She remains on DuoNeb inhalations, Pulmicort and Perforomist inhalations, IV Solu-Medrol. Heparin for DVT prophylaxis. Empiric antibiotics in the form of doxycycline. The patient is seen today 01/23/2023 in follow-up on the regular medical floor. She is currently resting comfortably in bed. Awake and alert in no acute distress. Feeling quite a bit better. Less cough and congestion. Less chest tightness. Maintaining O2 saturations in the 90s on room air. She does have home oxygen as needed. She remains on DuoNeb inhalations, Pulmicort and Perforomist inhalations, IV Solu-Medrol. Heparin for DVT prophylaxis. Empiric antibiotics in the form of doxycycline. Objective - Vital Signs Vital signs: Vital Signs Temp 98.7 F 01/23/23 07:37 Pulse 80 01/23/23 11:31 Resp 16 01/23/23 07:37 BP 143/87 01/23/23 07:37 Pulse Ox 95 01/23/23 07:41 FiO2 35 01/16/23 16:05 Intake & Output 01/22/23 01/23/23 01/23/23 18:59 06:59 18:59 Intake Total 600 Balance 600 Weight 73.936 kg Intake: Oral 600 Other: Voiding Method Toilet Toilet # Voids 2 - Exam GENERAL EXAM: Alert, 62-year-old female, resting in bed, on room air, comfortable in no apparent distress. HEAD: Normocephalic. EYES: Normal reaction of pupils, equal size. NOSE: Clear with pink turbinates. THROAT: No erythema or exudates. NECK: No masses, no JVD. CHEST: No chest wall deformity. LUNGS: Equal air entry with bilateral end expiratory wheeze, scattered rhonchi. CVS: S1 and S2 normal with no audible murmur, regular rhythm. ABDOMEN: No hepatosplenomegaly, normal bowel sounds, no guarding or rigidity. SPINE: No scoliosis or deformity SKIN: No rashes CENTRAL NERVOUS SYSTEM: No focal deficits, tone is normal in all 4 extremities. EXTREMITIES: There is no peripheral edema. No clubbing, no cyanosis. Peripheral pulses are intact. - Labs CBC & Chem 7: 01/16/23 07:01 01/16/23 07:01 Labs: Abnormal Lab Results - Last 24 Hours (Table) 01/22/23 01/22/23 01/23/23 Range/Units 17:01 20:15 07:39 POC Glucose (mg/dL) 129 H 137 H 134 H (70-110) mg/dL Microbiology - Last 24 Hours (Table) 01/21/23 14:00 Gram Stain - Preliminary Bronchoalviolar Lavage - Right Bronchial Washings Culture - Preliminary Assessment and Plan Assessment: Acute on chronic hypoxemic respiratory failure, secondary to COPD exacerbation. Status post bronchoscopy with BAL on 01/21/2023. Cultures and cytology pending. History of chronic obstructive pulmonary disease. Acute tracheobronchitis. History of previous tobacco use. Plan: The patient was seen and evaluated Medications reviewed Cleared for discharge from the pulmonary standpoint Continue her home pulmonary medications, oxygen Complete prednisone taper Follow-up in our office in 1 week I have personally seen and examined the patient, performed the documentation and the assessment and plan as written. Number of minutes spent on the visit: 10.
[2023-01-23 12:49] LABS: HGB 12.6 d/dL (12.0-15.0); MCH 27.9 pg (27.0-32.0); MCHC 31.5 d/dL (32.0-37.0); MCV 88.5 FL (80.0-97.0); Mean Platelet Volume 11.6 FL (9.5-12.2); NRBC Per 100 WBC 0 X 10*3/uL (0.00-0.01); Platelet Count 239 X 10*3/uL (140-440); RBC 4.52 X 10*6/uL (4.10-5.20); RDW 14.9 % (11.5-14.5); WBC 14.95 X 10*3/uL (4.50-10.00)
[2023-01-23 12:54] LABS: Blood Urea Nitrogen 30.8 mg/dL (9.0-27.0); Carbon Dioxide 28.3 mmol/L (21.6-31.8); Chloride 99 mmol/L (96-109); Glucose 132 mg/dL (70-110); Potassium 5.8 mmol/L (3.5-5.5); Sodium 137 mmol/L (135-145)
--- NOTE | 2023-01-23 13:13 | PN ---
PROGRESS NOTE DATE OF SERVICE: 01/23/2023 SUBJECTIVE: This 62-year-old woman was admitted with COPD acute exacerbation, complaining of left- sided chest pain. The patient also had recent bronchoscopy. Repeat chest x-ray did not show any acute abnormalities. PHYSICAL EXAMINATION: VITAL SIGNS: Pulse is 72, blood pressure 146/70, respirations 16. CHEST: Few scattered rhonchi. ABDOMEN: Soft. NERVOUS SYSTEM: No focal deficits. LABORATORY DATA: Reviewed. ASSESSMENT: 1. Chronic obstructive pulmonary disease acute exacerbation with acute purulent tracheobronchitis. 2. Left-sided chest pain. 3. Status post bronchoscopy. 4. History of nicotine dependence. 5. History of anxiety. RECOMMENDATIONS: Recommended to continue current management and continue symptomatic treatment. Continue the steroids. Continue the pain management. Continue the bronchodilators. Closely monitor. The patient is on doxycycline. Further recommendations to follow. Await culture reports. MMODL / IJN: [id number] /
[2023-01-23 13:20] LABS: Basophils # (M) 0 X 10*3/uL (0.00-0.10); Neutrophils % (M) 85 %
[2023-01-23 13:34] LABS: Eosinophils # (M) 0.15 X 10*3/uL (0.04-0.35); RBC Morphology Normal (Normal)
[2023-01-23 17:19] LABS: Glucose,Whole Blood 107 mg/dL (70-110)
[2023-01-23 20:04] LABS: Glucose,Whole Blood 228 mg/dL (70-110)
[2023-01-24] MEDS: methylPREDNISolone SOD SUCCI 125 MG/2 ML VIAL IV SCH ×4 (00:08→18:51)
[2023-01-24] MEDS: HYDROcodone/APAP 7.5-325MG 1 EACH TAB PO PRN ×3 (00:08→17:48)
[2023-01-24 07:11] LABS: Glucose,Whole Blood 118 mg/dL (70-110)
[2023-01-24] MEDS: INSULIN ASPART (NovoLOG) 100 UNIT/ML VIAL SQ SCH ×4 (07:45→20:11)
[2023-01-24] MEDS: FORMOTEROL FUMARATE 20 MCG/2 ML NEBU INHALATION SCH ×2 (07:48→19:20)
[2023-01-24] MEDS: BUDESONIDE 1 MG/2 ML NEBU INHALATION SCH ×2 (07:48→19:20)
[2023-01-24] MEDS: IPRATROPIUM-ALBUTEROL 3 ML NEB INHALATION SCH ×4 (07:48→19:20)
[2023-01-24] MEDS: ALPRAZolam 0.5 MG TAB PO PRN ×2 (09:15→20:13)
[2023-01-24] MEDS: FAMOTIDINE 20 MG/2 ML VIAL IV SCH ×2 (09:15→20:12)
[2023-01-24 09:41] LABS: BUN/Creat Ratio 41.12 Ratio (12.00-20.00); Blood Urea Nitrogen 32.9 mg/dL (9.0-27.0); Calcium 8.8 mg/dL (8.7-10.3); Chloride 98 mmol/L (96-109); Glucose 119 mg/dL (70-110); Potassium 4.7 mmol/L (3.5-5.5); Sodium 135 mmol/L (135-145)
[2023-01-24 10:00] LABS: HCT 37.9 % (37.2-46.3); HGB 12.1 d/dL (12.0-15.0); MCHC 31.9 d/dL (32.0-37.0); MCV 87.7 FL (80.0-97.0); Mean Platelet Volume 11.6 FL (9.5-12.2); NRBC Per 100 WBC 0 X 10*3/uL (0.00-0.01); Platelet Count 229 X 10*3/uL (140-440); RBC 4.32 X 10*6/uL (4.10-5.20); WBC 15.45 X 10*3/uL (4.50-10.00)
[2023-01-24] MEDS: ESCITALOPRAM 10 MG TAB PO SCH (10:10)
[2023-01-24] MEDS: DOXYCYCLINE 100 MG CAP PO SCH ×2 (10:10→20:12)
[2023-01-24] MEDS: MONTELUKAST 10 MG TAB PO SCH (10:10)
[2023-01-24] MEDS: HEPARIN SODIUM,PORCINE/PF 5,000 UNIT/0.5 ML SYRINGE SQ SCH ×2 (10:10→20:12)
[2023-01-24] MEDS: LOSARTAN-HCTZ 50-12.5 MG 1 EACH TAB PO SCH (10:11)
[2023-01-24] MEDS: amLODIPine 5 MG TAB PO SCH (10:11)
[2023-01-24 10:54] LABS: Basophils # (M) 0 X 10*3/uL (0.00-0.10); Eosinophils # (M) 0 X 10*3/uL (0.04-0.35); Lymphocytes # (M) 0.77 X 10*3/uL (0.90-5.00); Metamyelocytes % 1 % (0-0); Monocytes # (M) 0.62 X 10*3/uL (0.20-1.00); Neutrophils # (M) 13.91 X 10*3/uL (1.80-7.70); Neutrophils % (M) 90 %; RBC Morphology Normal (Normal)
--- NOTE | 2023-01-24 11:25 | P.PN ---
Subjective Progress Note Date: 01/24/23 this is a 62-year-old female known history of severe COPD, normally sees Dr. Garcia for her COPD. Patient is on oxygen but she is not compliant with her. She is multiple bronchodilators, quit smoking a few months ago. Patient was admitted last night with symptoms of acute exacerbation of COPD. Her symptoms for the last 4 or 5 days have been symptoms of cough wheezing shortness of breath. Cough has been productive with brownish phlegm, but no fever, no chills, no hemoptysis, and no chest pain.chest x-ray showed no active active cardiopulmonary disease, she does have COPD findings.labs including CBC, basic metabolic profile, renal profile are all normal.patient was placed on BiPAP at 14/6 and 45% and she was noted to have significant dyspnea on her initial presentation. By the time I evaluated the patient, she was feeling better, breathing easier, nonetheless on physical examination she had diffuse rhonchi and wheezes bilaterally. Patient was reevaluated today 01/17/23, patient is feeling better less cough and less wheezing less shortness of breath improved but not back to baseline. Nna rodriguez is obviously responding well to her present course of bronchodilators and steroids, and she will probably need another day of IV Solu-Medrol before we could consider discharge planning on this patient. Progress note dated 01/18/2023. 62-year-old female with history of COPD. She was admitted to the hospital a couple days ago with a COPD exacerbation. She came in with shortness of breath, cough, wheezing, chest tightness, and brown phlegm production. The patient is on 2 L nasal cannula. She's not receiving any IV fluids. The patient is seen today in room 357. The only new labs today is a glucose of 161. Progress note dated 01/19/2023. 62-year-old female seen today in room 518. She was admitted with a diagnosis of COPD exacerbation. The patient continues on oxygen at 2 L. No IV fluids. She still very short of breath, bronchospastic, and coughing quite a bit. She probably needs 1 more day in the hospital. No new laboratory data as yet. Microbiology data is negative are pending. Chest CT was negative for any acute process. She remains on Pulmicort, formoterol, albuterol, ipratropium bromide, and Solu-Medrol. She's also on Singulair, 10 mg. The patient is seen today 01/20/2023 in follow-up on the regular medical floor. She is maintaining good O2 saturations in the 90s on room air. She is quite bronchospastic and wheezing. Still with some chest tightness. Not much improvement. She is continued on DuoNeb inhalations, Pulmicort and Perforomist inhalations, Singulair, Solu-Medrol. Empiric antibiotics in the form of doxycycline. Heparin for DVT prophylaxis. Blood sugar 107. The patient is seen today 01/21/2023 in follow-up on the regular medical floor. She is currently sitting up in bed. Awake and alert in no acute distress. She is a bit better today compared to yesterday. Still not back to her baseline. Plan is for bronchoscopy with BAL today. blood glucose 110. She is continued on DuoNeb inhalations, Pulmicort and Perforomist inhalations, Solu-Medrol. Empiric antibiotics in the form of Vibramycin. Heparin for DVT prophylaxis. The patient is seen today 01/22/2023 in follow-up on the regular medical floor. She is currently sitting up in a chair at the bedside. Awake and alert in no acute distress. Maintaining O2 saturation in the 90s on 2 L/m per nasal cannula. She continues to have some cough, congestion and wheezing. Not much improvement following bronchoscopy with BAL yesterday. She did have many retained secretions that were suctioned out. Cultures and cytology pending. She remains on DuoNeb inhalations, Pulmicort and Perforomist inhalations, IV Solu-Medrol. Heparin for DVT prophylaxis. Empiric antibiotics in the form of doxycycline. The patient is seen today 01/23/2023 in follow-up on the regular medical floor. She is currently resting comfortably in bed. Awake and alert in no acute distress. Feeling quite a bit better. Less cough and congestion. Less chest tightness. Maintaining O2 saturations in the 90s on room air. She does have home oxygen as needed. She remains on DuoNeb inhalations, Pulmicort and Perforomist inhalations, IV Solu-Medrol. Heparin for DVT prophylaxis. Empiric antibiotics in the form of doxycycline. The patient is seen today 01/24/2023 in follow-up on the regular medical floor. She is sitting up in bed awake and alert in no acute distress. Feeling back to her baseline. Hoping to go home. She is maintaining good O2 saturations in the 90s on room air. Follow-up chest x-ray shows no acute cardiopulmonary process. Evidence of COPD. Bronchial wash cultures revealed no growth. White count 15.4. Hemoglobin 12.1. Platelets 229. Sodium 135. Potassium 4.7. Bicarb 28. BUN 33. Creatinine 0.8. Glucose 119. She remains on DuoNeb inhalations, Pulmicort and performance inhalations, Singulair, Solu-Medrol. Empiric antibiotics in the form of Vibramycin. Heparin for DVT prophylaxis. Objective - Vital Signs Vital signs: Vital Signs Temp 98.2 F 01/24/23 07:38 Pulse 78 01/24/23 08:10 Resp 17 01/24/23 07:38 BP 138/75 01/24/23 07:38 Pulse Ox 96 01/24/23 07:48 FiO2 35 01/16/23 16:05 Intake & Output 01/23/23 01/24/23 01/24/23 18:59 06:59 18:59 Intake Total 600 Balance 600 Weight 73.936 kg Intake: Oral 600 Other: Voiding Method Toilet # Voids 4 2 - Exam GENERAL EXAM: Alert, very pleasant 62-year-old female, on room air, comfortable in no apparent distress. HEAD: Normocephalic. EYES: Normal reaction of pupils, equal size. NOSE: Clear with pink turbinates. THROAT: No erythema or exudates. NECK: No masses, no JVD. CHEST: No chest wall deformity. LUNGS: Equal air entry with bilateral end expiratory wheeze, diminished. CVS: S1 and S2 normal with no audible murmur, regular rhythm. ABDOMEN: No hepatosplenomegaly, normal bowel sounds, no guarding or rigidity. SPINE: No scoliosis or deformity SKIN: No rashes CENTRAL NERVOUS SYSTEM: No focal deficits, tone is normal in all 4 extremities. EXTREMITIES: There is no peripheral edema. No clubbing, no cyanosis. Peripheral pulses are intact. - Labs CBC & Chem 7: 01/24/23 06:45 01/24/23 06:45 Labs: Abnormal Lab Results - Last 24 Hours (Table) 01/23/23 01/23/23 01/23/23 Range/Units 07:11 07:13 20:02 WBC 14.95 H (4.50-10.00) X 10*3/uL MCHC 31.5 L (32.0-37.0) d/dL RDW 14.9 H (11.5-14.5) % Lymphocytes # (Manual) (0.90-5.00) X 10*3/uL Eosinophils # (Manual) (0.04-0.35) X 10*3/uL Potassium 5.8 H (3.5-5.5) mmol/L BUN 30.8 H (9.0-27.0) mg/dL BUN/Creatinine Ratio 38.50 H (12.00-20.00) Ratio Glucose 132 H (70-110) mg/dL POC Glucose (mg/dL) 228 H (70-110) mg/dL 01/24/23 01/24/23 01/24/23 Range/Units 06:45 06:45 07:10 WBC 15.45 H (4.50-10.00) X 10*3/uL MCHC 31.9 L (32.0-37.0) d/dL RDW 15.0 H (11.5-14.5) % Lymphocytes # (Manual) 0.77 L (0.90-5.00) X 10*3/uL Eosinophils # (Manual) 0 L (0.04-0.35) X 10*3/uL Potassium (3.5-5.5) mmol/L BUN 32.9 H (9.0-27.0) mg/dL BUN/Creatinine Ratio 41.12 H (12.00-20.00) Ratio Glucose 119 H (70-110) mg/dL POC Glucose (mg/dL) 118 H (70-110) mg/dL Microbiology - Last 24 Hours (Table) 01/21/23 14:00 Gram Stain - Final Bronchoalviolar Lavage - Right Bronchial Washings Culture - Final Assessment and Plan Assessment: Acute on chronic hypoxemic respiratory failure, secondary to COPD exacerbation. Status post bronchoscopy with BAL on 01/21/2023. Cultures revealed no growth, cytology pending. History of chronic obstructive pulmonary disease. Acute tracheobronchitis. History of previous tobacco use. Plan: The patient was seen and evaluated Medications and labs reviewed Bronchial wash cultures revealed no growth Cleared for discharge from the pulmonary standpoint Continue her home pulmonary medications, oxygen Complete a prednisone taper Follow-up in our office in 1 week I have personally seen and examined the patient, performed the documentation and the assessment and plan as written. Number of minutes spent on the visit: 10.
[2023-01-24 12:25] LABS: Glucose,Whole Blood 102 mg/dL (70-110)
--- NOTE | 2023-01-24 14:54 | PN ---
PROGRESS NOTE SUBJECTIVE: A 62-year-old white female. OBJECTIVE: VITAL SIGNS: Blood pressure 137/81, O2 saturation 96%, temperature 97.8, pulse 64, respiratory rate 16 to 18. CARDIOVASCULAR: S1, S2. LUNGS: Scattered wheeze and rhonchi. HEMATOLOGIC: Negative Homans. PSYCHIATRIC: Fair mood and affect. ASSESSMENT AND PLAN: Discussed with the patient. She is improving with her vital signs. She does not qualify for oxygen at home. She will continue on current treatments, possibly discharge home. She is requesting to be seen by a architecture professor prior to going home on the echo. Prognosis is guarded. MMODL / IJN: [id number] /
[2023-01-24 17:22] LABS: Glucose,Whole Blood 101 mg/dL (70-110)
[2023-01-24 20:05] LABS: Glucose,Whole Blood 118 mg/dL (70-110)
[2023-01-25] MEDS: methylPREDNISolone SOD SUCCI 125 MG/2 ML VIAL IV SCH ×5 (00:31→23:38)
[2023-01-25] MEDS: HYDROcodone/APAP 7.5-325MG 1 EACH TAB PO PRN ×4 (00:32→20:36)
[2023-01-25] MEDS: ACETAMINOPHEN TAB 325 MG TAB PO PRN ×2 (04:06→23:37)
[2023-01-25 07:18] LABS: Glucose,Whole Blood 119 mg/dL (70-110)
[2023-01-25] MEDS: IPRATROPIUM-ALBUTEROL 3 ML NEB INHALATION SCH ×4 (07:43→21:14)
[2023-01-25] MEDS: BUDESONIDE 1 MG/2 ML NEBU INHALATION SCH ×2 (07:43→21:14)
[2023-01-25] MEDS: FORMOTEROL FUMARATE 20 MCG/2 ML NEBU INHALATION SCH ×2 (07:43→21:13)
[2023-01-25] MEDS: INSULIN ASPART (NovoLOG) 100 UNIT/ML VIAL SQ SCH ×4 (07:51→20:33)
[2023-01-25] MEDS: ALPRAZolam 0.5 MG TAB PO PRN (07:52)
[2023-01-25] MEDS: LOSARTAN-HCTZ 50-12.5 MG 1 EACH TAB PO SCH (09:04)
[2023-01-25] MEDS: amLODIPine 5 MG TAB PO SCH (09:04)
[2023-01-25] MEDS: DOXYCYCLINE 100 MG CAP PO SCH ×2 (09:04→20:59)
[2023-01-25] MEDS: HEPARIN SODIUM,PORCINE/PF 5,000 UNIT/0.5 ML SYRINGE SQ SCH ×2 (09:04→20:33)
[2023-01-25] MEDS: ESCITALOPRAM 10 MG TAB PO SCH (09:05)
[2023-01-25] MEDS: MONTELUKAST 10 MG TAB PO SCH (09:05)
[2023-01-25 09:40] LABS: Nucleated Cells, Body Fluid 263 /UL
[2023-01-25 09:48] LABS: Neutrophils # (M) 12.71 X 10*3/uL (1.80-7.70)
--- NOTE | 2023-01-25 10:34 | P.CRDCN ---
History of Present Illness History of present illness: HISTORY OF PRESENT ILLNESS: This is a 62-year-old female with a past medical history significant for hypertension, COPD, and former nicotine dependence. Patient does not follow with a director cpg. We have been asked to see the patient in consultation for shortness of breath. Patient examined at the bedside. Patient presented to the hospital with a chief complaint of shortness of breath. The patient states she took for breathing treatments at home and had little improvement in her breathing so she came to the emergency room. She is being treated for COPD ex acerbation. She is currently receiving IV steroids. She states her breathing has improved although she still has some wheezing this morning. The patient currently denies any chest pain or pressure. She states occasionally over the past week she has been having some discomfort in her chest. The pain is nonexertional. She states that if she rubs her chest or lays in bed a certain way the pain improves. She denies having any stress test in the past. She does report a family history of coronary artery disease. * EKG reveals sinus mechanism with T-wave inversions in anterior and inferior le ads * Chest xray no acute cardiopulmonary process. COPD changes. * Laboratory data: WBC 15.45. Hemoglobin 12.1. Platelet count 229. Sodium 135. Potassium 4.7. BUN 32. Creatinine 0.8. * Current home cardiac medications include none * Echocardiogram completed revealing ejection fraction 55-60%, moderate pulmonary hypertension, mild mitral and mild tricuspid regurgitation REVIEW OF SYSTEMS: At the time of my exam: CONSTITUTIONAL: Denies fever or chills. HEENT: Denies blurred vision, vision changes, or eye pain. Denies hemoptysis CARDIOVASCULAR: Denies chest pain. Denies orthopnea. Denies PND. Denies palpitations RESPIRATORY: Denies shortness of breath. GASTROINTESTINAL: Denies abdominal pain. Denies nausea or vomiting. HEMATOLOGIC: Denies bleeding disorders. GENITOURINARY: Denies any blood in urine. SKIN: Denies pruitis. Denies rash. PHYSICAL EXAM: VITAL SIGNS: Reviewed. GENERAL: Well-developed in no acute distress. HEENT: Head is normocephalic. Pupils are equal, round. Sclerae anicteric. Mucous membranes of the mouth are moist. Neck supple. No JVD or thyromegaly LUNGS: Respirations even and unlabored. Lungs with rhonchi throughout and expiratory wheezing HEART: Regular rate and rhythm. S1 and S2 heard. Soft systolic murmur noted ABDOMEN: Soft. Nondistended. Nontender. EXTREMITIES: Normal range of motion. No clubbing or cyanosis. Peripheral pulses intact. No lower extremity edema NEUROLOGIC: Awake and alert. Oriented x 3. ASSESSMENT: Shortness of breath Acute COPD exacerbation, status post bronchoscopy on 01/21/2023 Moderate pulmonary hypertension Hypertension Former nicotine dependence Coronary artery calcifications per CT PLAN: Continue current cardiac medications Patient is stable for discharge home today from a cardiac standpoint Patient will follow up in the office with Dr. Lama and will plan for outpatient stress testing Nurse practitioner note has been reviewed by physician. Signing provider agrees with the documented findings, assessment, and plan of care. Past Medical History Past Medical History: COPD History of Any Multi-Drug Resistant Organisms: None Reported Additional Past Surgical History / Comment(s): neck C2-C6 lamenectomy with bracket placement Smoking Status: Former smoker - Past Family History Father Family Medical History: Cancer Mother Family Medical History: AICD/Pacemaker Medications and Allergies Home Medications Medication Instructions Recorded Confirmed Type ALPRAZolam [Xanax] 1 mg PO DAILY 01/16/23 01/16/23 History Acetaminophen Tab [Tylenol] 1,000 mg PO Q6HR PRN 01/16/23 01/16/23 History Ergocalciferol (Vitamin D2) 1,250 mcg PO ARELLANO 01/16/23 01/16/23 History [Drisdol (50,000 Iu)] Escitalopram [Lexapro] 10 mg PO DAILY 01/16/23 01/16/23 History HYDROcodone/APAP 10-325MG [[place] 1 tab PO BID PRN 01/16/23 01/16/23 History 10-325] Ibuprofen [Motrin Ib] 800 mg PO Q8H PRN 01/16/23 01/16/23 History Montelukast [Singulair] 10 mg PO DAILY 01/16/23 01/16/23 History Budesonide [Pulmicort] 1 mg INHALATION RT-BID 30 Days #60 01/21/23 Rx ml Doxycycline [Vibramycin] 100 mg PO BID 10 Days #20 cap 01/21/23 Rx Ipratropium-Albuterol Nebulize 3 ml INHALATION RT-QID 30 Days 01/21/23 Rx [Duoneb 0.5 mg-3 mg/3 ml Soln] #120 each Losartan-Hctz 50-12.5 mg [Hyzaar 1 each PO DAILY 30 Days #30 tab 01/21/23 Rx 50-12.5] amLODIPine [Norvasc] 5 mg PO DAILY 30 Days #30 tab 01/21/23 Rx Allergies Allergy/AdvReac Type Severity Reaction Status Date / Time ciprofloxacin [From Cipro] Allergy Rash/Hives Verified 01/16/23 10:53 ciprofloxacin HCl Allergy Rash/Hives Verified 01/16/23 10:53 [From Cipro] Penicillins Allergy "Passed Verified 01/16/23 10:53 out" Physical Exam Vitals: Vital Signs Temp Pulse Pulse Resp BP Pulse Ox 01/25/23 08:06 76 01/25/23 07:54 72 01/25/23 07:43 71 95 01/25/23 07:12 97.8 F 59 L 17 142/77 96 01/25/23 01:01 98.5 F 71 18 118/61 95 01/24/23 19:50 17 01/24/23 19:38 78 01/24/23 19:26 78 01/24/23 19:25 78 01/24/23 19:22 76 01/24/23 18:56 98 F 64 17 138/73 95 01/24/23 15:59 76 01/24/23 15:49 74 01/24/23 12:26 97.8 F 64 16 137/81 96 01/24/23 11:45 80 01/24/23 11:33 80 Intake and Output 01/24/23 01/25/23 01/25/23 22:59 06:59 14:59 Intake Total 600 Balance 600 Intake: Oral 600 Other: Voiding Method Toilet # Voids 2 Results 01/24/23 06:45 01/24/23 06:45 CBC 01/24/23 Range/Units 06:45 WBC 15.45 H (4.50-10.00) X 10*3/uL RBC 4.32 (4.10-5.20) X 10*6/uL Hgb 12.1 (12.0-15.0) d/dL Hct 37.9 (37.2-46.3) % Plt Count 229 (140-440) X 10*3/uL Comprehensive Metabolic Panel 01/24/23 Range/Units 06:45 Sodium 135 (135-145) mmol/L Potassium 4.7 (3.5-5.5) mmol/L Chloride 98 (96-109) mmol/L Carbon Dioxide 28.0 (21.6-31.8) mmol/L BUN 32.9 H (9.0-27.0) mg/dL Creatinine 0.8 (0.6-1.5) mg/dL Glucose 119 H (70-110) mg/dL Calcium 8.8 (8.7-10.3) mg/dL Current Medications Generic Name Dose Route Start Last Admin Trade Name Freq PRN Reason Stop Dose Admin Acetaminophen 650 mg 01/20/23 06:10 01/25/23 04:06 Acetaminophen Tab 325 Mg Tab PO 650 mg Q6HR PRN Administration Fever and/ or Pain Hydrocodone Bitart/Acetaminophen 1 each 01/16/23 09:46 01/25/23 06:53 Hydrocodone/Apap 7.5-325mg 1 Each Tab PO 1 each Q6HR PRN Administration Pain Albuterol/Ipratropium 3 ml 01/16/23 08:19 Ipratropium-Albuterol 3 Ml Neb INHALATION RT-Q2H PRN Shortness Of Breath Or Wheezing Albuterol/Ipratropium 3 ml 01/16/23 12:00 01/25/23 07:43 Ipratropium-Albuterol 3 Ml Neb INHALATION 3 ml RT-QID DARREN Administration Alprazolam 0.5 mg 01/18/23 10:18 01/25/23 07:52 Alprazolam 0.5 Mg Tab PO 0.5 mg BID PRN Administration Anxiety Amlodipine Besylate 5 mg 01/18/23 10:30 01/24/23 10:11 Amlodipine 5 Mg Tab PO 5 mg DAILY DARREN Administration Budesonide 1 mg 01/16/23 20:00 01/25/23 07:43 Budesonide 1 Mg/2 Ml Nebu INHALATION 1 mg RT-BID DARREN Administration Dextrose/Water 25 ml 01/16/23 14:28 Dextrose 50% Syringe 50 Ml IVP PER PROTOCOL PRN Hypoglycemia Protocol Dextrose/Water 50 ml 01/16/23 14:28 Dextrose 50% Syringe 50 Ml IVP PER PROTOCOL PRN Hypoglycemia Protocol Doxycycline Monohydrate 100 mg 01/16/23 21:00 01/24/23 20:12 Doxycycline 100 Mg Cap PO 100 mg BID DARREN Administration Protocol Escitalopram Oxalate 10 mg 01/17/23 09:00 01/24/23 10:10 Escitalopram 10 Mg Tab PO 10 mg DAILY DARREN Administration Famotidine 20 mg 01/16/23 21:00 01/24/23 20:12 Famotidine 20 Mg/2 Ml Vial IV 20 mg Q12HR DARREN Administration Formoterol Fumarate 20 mcg 01/16/23 20:00 01/25/23 07:43 Formoterol Fumarate 20 Mcg/2 Ml Nebu INHALATION 20 mcg RT-BID DARREN Administration HCTZ/Losartan Potassium 1 each 01/21/23 16:15 01/24/23 10:11 Losartan-Hctz 50-12.5 Mg 1 Each Tab PO 1 each DAILY DARREN Administration Heparin Sodium (Porcine) 5,000 unit 01/16/23 21:00 01/24/23 20:12 Heparin Sodium,Porcine/Pf 5,000 Unit/0.5 Ml Syringe SQ 5,000 unit Q12HR DARREN Administration Hydralazine HCl 10 mg 01/18/23 10:03 Hydralazine Hcl 20 Mg/Ml 1 Ml Vial IVP Q6HR PRN Blood Pressure - High Insulin Aspart 0 unit 01/16/23 17:30 01/25/23 07:51 Insulin Aspart (Novolog) 100 Unit/Ml Vial SQ Not Given ACHS [facility] Protocol Methylprednisolone Sodium Succinate 60 mg 01/16/23 12:00 01/25/23 06:02 Methylprednisolone Sod Succi 125 Mg/2 Ml Vial IV 60 mg Q6HR DARREN Administration Montelukast Sodium 10 mg 01/17/23 09:00 01/24/23 10:10 Montelukast 10 Mg Tab PO 10 mg DAILY DARREN Administration Naloxone HCl 0.2 mg 01/16/23 08:19 Naloxone 0.4 Mg/Ml 1 Ml Vial IVP Q2M PRN Opioid Reversal Intake and Output 01/24/23 01/25/23 01/25/23 22:59 06:59 14:59 Intake Total 600 Balance 600 Intake: Oral 600 Other: Voiding Method Toilet # Voids 2 01/24/23 06:45 01/24/23 06:45
[2023-01-25] MEDS: FAMOTIDINE 20 MG/2 ML VIAL IV SCH ×2 (10:42→20:32)
[2023-01-25] MEDS ORDERED: NITROGLYCERIN SL TABS 0.4 MG TAB SUBLINGUAL PRN ×2 (10:51→13:01)
[2023-01-25 12:11] LABS: Glucose,Whole Blood 110 mg/dL (70-110)
[2023-01-25] MEDS ORDERED: ASPIRIN 325 MG TAB PO STA (13:01)
[2023-01-25] MEDS ORDERED: ATORVASTATIN 80 MG TAB PO STA (13:01)
[2023-01-25] MEDS ORDERED: ALPRAZolam 0.5 MG TAB PO PRN (13:01)
[2023-01-25] MEDS: SODIUM CHLORIDE 0.9% 1,000 ML in EMPTY BAG 1 BAG IV SCH (13:39)
[2023-01-25] MEDS ORDERED: LIDOCAINE 1% INJ 10MG/ML (5 ML VIAL-PF) SQ ONE (15:05)
[2023-01-25] MEDS ORDERED: MIDAZOLAM 2 MG/2 ML VIAL IVP ONE (15:06)
[2023-01-25] MEDS ORDERED: VERAPAMIL SYRINGE (5 MG/10 ML) INTRAARTER ONE (15:07)
[2023-01-25] MEDS ORDERED: fentaNYL (PF) 50 MCG/ML 2 ML AMP IVP ONE (15:07)
[2023-01-25] MEDS ORDERED: SODIUM CHLORIDE 0.9% 1,000 ML IV ONE (15:08)
[2023-01-25] MEDS ORDERED: IOPAMIDOL-370 100ML BTL INJ ONE (15:15)
--- NOTE | 2023-01-25 15:20 | P.CARDCATH ---
Description of Procedure: PROCEDURES PERFORMED: Left heart catheterization, bilateral coronary angiography, ultrasound guided arterial access INDICATION: Chest pain concerning for unstable angina CONSENT:I have discussed the risks, benefits and alternative therapies for the above-mentioned procedure and for both sedation/analgesia as well as necessary blood product administration, if indicated, as they pertain to this patient. The patient has indicated understanding and acceptance of the risks and procedures discussed. PROCEDURE: After the risks, benefits and alternatives of the above mentioned procedure explained in detail with the patient, informed consent was obtained. Patient was taken to the catheterization lab and prepped and draped in usual fashion. Ultrasound guidance was used to assess for arterial access. 1% lidocaine was used to anesthetize the right radial artery. A 6-Syrian sheath was placed in the right radial artery using modified Seldinger technique and ultrasound guidance. Left coronary angiography was performed with a 5-Syrian JL 3.5 catheter and right coronary angiography was performed with a 5-Syrian JR5 catheter in various views. A 5-Syrian FR5 catheter was inserted into the left ventricle and pressure measurements were obtained. The right radial sheath was removed and a TR band was placed with hemostasis achieved. The patient tolerated the procedure well. Patient was transported back to the post catheterization holding area in stable condition. Conscious Sedation: Patient was monitored under the direct supervision of myself for conscious sedation using Versed and fentanyl for a total duration of 14 minutes HEMODYNAMICS: Aorta: 122/89 LT: 118/5, LVEDP 14 SELECTIVE CORONARY ARTERIOGRAPHY: LEFT MAIN: The left main is a large caliber vessel which bifurcates into the LAD and circumflex. There is no significant stenosis. LEFT ANTERIOR DESCENDING CORONARY ARTERY: LAD is a large caliber vessel which wraps around to the apex. There is a mid LAD 30% stenosis and otherwise normal. LEFT CIRCUMFLEX CORONARY ARTERY: Left circumflex is a moderate caliber vessel without significant stenosis. RIGHT CORONARY ARTERY: The right coronary artery is a large caliber vessel which gives off a PDA and PLV branch and is the dominant vessel. There is no significant stenosis. FINAL IMPRESSION: 1. Relatively normal coronary arteries other than mid LAD 30% stenosis as described above. 2. Normal left sided filling pressures PLAN: 1. Aggressive risk factor modification per most recent ACC/AHA guidelines. 2. Follow-up in the office in 1-2 weeks.
--- NOTE | 2023-01-25 16:14 | P.PN ---
Subjective Progress Note Date: 01/25/23 this is a 62-year-old female known history of severe COPD, normally sees Dr. Garcia for her COPD. Patient is on oxygen but she is not compliant with her. She is multiple bronchodilators, quit smoking a few months ago. Patient was admitted last night with symptoms of acute exacerbation of COPD. Her symptoms for the last 4 or 5 days have been symptoms of cough wheezing shortness of breath. Cough has been productive with brownish phlegm, but no fever, no chills, no hemoptysis, and no chest pain.chest x-ray showed no active active cardiopulmonary disease, she does have COPD findings.labs including CBC, basic metabolic profile, renal profile are all normal.patient was placed on BiPAP at 14/6 and 45% and she was noted to have significant dyspnea on her initial presentation. By the time I evaluated the patient, she was feeling better, breathing easier, nonetheless on physical examination she had diffuse rhonchi and wheezes bilaterally. Patient was reevaluated today 01/17/23, patient is feeling better less cough and less wheezing less shortness of breath improved but not back to baseline. Patient is obviously responding well to her present course of bronchodilators and steroids, and she will probably need another day of IV Solu-Medrol before we could consider discharge planning on this patient. Progress note dated 01/18/2023. 62-year-old female with history of COPD. She was admitted to the hospital a couple days ago with a COPD exacerbation. She came in with shortness of breath, cough, wheezing, chest tightness, and brown phlegm production. The patient is on 2 L nasal cannula. She's not receiving any IV fluids. The patient is seen today in room 357. The only new labs today is a glucose of 161. Progress note dated 01/19/2023. 62-year-old female seen today in room 518. She was admitted with a diagnosis of COPD exacerbation. The patient continues on oxygen at 2 L. No IV fluids. She still very short of breath, bronchospastic, and coughing quite a bit. She prob ably needs 1 more day in the hospital. No new laboratory data as yet. Microbiology data is negative are pending. Chest CT was negative for any acute process. She remains on Pulmicort, formoterol, albuterol, ipratropium bromide, and Solu-Medrol. She's also on Singulair, 10 mg. The patient is seen today 01/20/2023 in follow-up on the regular medical floor. She is maintaining good O2 saturations in the 90s on room air. She is quite bronchospastic and wheezing. Still with some chest tightness. Not much improvement. She is continued on DuoNeb inhalations, Pulmicort and Perforomist inhalations, Singulair, Solu-Medrol. Empiric antibiotics in the form of doxycycline. Heparin for DVT prophylaxis. Blood sugar 107. The patient is seen today 01/21/2023 in follow-up on the regular medical floor. She is currently sitting up in bed. Awake and alert in no acute distress. She is a bit better today compared to yesterday. Still not back to her baseline. Plan is for bronchoscopy with BAL today. blood glucose 110. She is continued on DuoNeb inhalations, Pulmicort and Perforomist inhalations, Solu-Medrol. Empiric antibiotics in the form of Vibramycin. Heparin for DVT prophylaxis. The patient is seen today 01/22/2023 in follow-up on the regular medical floor. She is currently sitting up in a chair at the bedside. Awake and alert in no acute distress. Maintaining O2 saturation in the 90s on 2 L/m per nasal cannula. She continues to have some cough, congestion and wheezing. Not much improvement following bronchoscopy with BAL yesterday. She did have many retained secretions that were suctioned out. Cultures and cytology pending. She remains on DuoNeb inhalations, Pulmicort and Perforomist inhalations, IV Solu-Medrol. Heparin for DVT prophylaxis. Empiric antibiotics in the form of doxycycline. The patient is seen today 01/23/2023 in follow-up on the regular medical floor. She is currently resting comfortably in bed. Awake and alert in no acute distress. Feeling quite a bit better. Less cough and congestion. Less chest tightness. Maintaining O2 saturations in the 90s on room air. She does have home oxygen as needed. She remains on DuoNeb inhalations, Pulmicort and Perforomist inhalations, IV Solu-Medrol. Heparin for DVT prophylaxis. Empiric antibiotics in the form of doxycycline. The patient is seen today 01/24/2023 in follow-up on the regular medical floor. She is sitting up in bed awake and alert in no acute distress. Feeling back to her baseline. Hoping to go home. She is maintaining good O2 saturations in the 90s on room air. Follow-up chest x-ray shows no acute cardiopulmonary process. Evidence of COPD. Bronchial wash cultures revealed no growth. White count 15.4. Hemoglobin 12.1. Platelets 229. Sodium 135. Potassium 4.7. Bicarb 28. BUN 33. Creatinine 0.8. Glucose 119. She remains on DuoNeb inhalations, Pulmicort and performance inhalations, Singulair, Solu-Medrol. Empiric antibiotics in the form of Vibramycin. Heparin for DVT prophylaxis. . On today's evaluation of 01/25/2023, the patient's COPD stable. The patient is post bronchoscopy that showed no microbial growth. Remains on DuoNeb, remains on Pulmicort and Perforomist the blood treatments and IV Solu-Medrol. The patient is also on broad-spectrum antibiotic coverage with tobramycin. The patient underwent a cardiac catheterization due to recurrent episodes of chest pain that hasn't responded to nitroglycerin. The patient's cardiac therese terization showed normal coronaries with mild disease involving the LAD with a 30% stenosis. The filling pressures were essentially within normal limits. Objective - Vital Signs Vital signs: Vital Signs Temp 98.2 F 01/25/23 12:10 Pulse 76 01/25/23 12:10 Resp 17 01/25/23 12:10 BP 129/73 01/25/23 12:10 Pulse Ox 98 01/25/23 12:10 FiO2 35 01/16/23 16:05 Intake & Output 01/24/23 01/25/23 01/25/23 18:59 06:59 18:59 Intake Total 600 Balance 600 Intake: Oral 600 Other: Voiding Method Toilet Toilet # Voids 2 - Exam GENERAL EXAM: Alert, very pleasant 62-year-old female, on room air, comfortable in no apparent distress. HEAD: Normocephalic. EYES: Normal reaction of pupils, equal size. NOSE: Clear with pink turbinates. THROAT: No erythema or exudates. NECK: No masses, no JVD. CHEST: No chest wall deformity. LUNGS: Equal air entry with bilateral end expiratory wheeze, diminished. CVS: S1 and S2 normal with no audible murmur, regular rhythm. ABDOMEN: No hepatosplenomegaly, normal bowel sounds, no guarding or rigidity. SPINE: No scoliosis or deformity SKIN: No rashes CENTRAL NERVOUS SYSTEM: No focal deficits, tone is normal in all 4 extremities. EXTREMITIES: There is no peripheral edema. No clubbing, no cyanosis. Marsha pheral pulses are intact. - Labs CBC & Chem 7: 01/24/23 06:45 01/24/23 06:45 Labs: Abnormal Lab Results - Last 24 Hours (Table) 01/21/23 01/23/23 01/24/23 Range/Units 14:00 07:13 06:45 Neutrophils # (Manual) 12.71 H 13.91 H (1.80-7.70) X 10*3/uL POC Glucose (mg/dL) (70-110) mg/dL Fluid RBC [id number] H (0-2000) /uL 01/24/23 01/25/23 Range/Units 20:04 07:17 Neutrophils # (Manual) (1.80-7.70) X 10*3/uL POC Glucose (mg/dL) 118 H 119 H (70-110) mg/dL Fluid RBC (0-2000) /uL Microbiology - Last 24 Hours (Table) 01/21/23 14:00 Gram Stain - Final Bronchoalviolar Lavage - Right Bronchial Washings Culture - Final Assessment and Plan Plan: Acute on chronic hypoxemic respiratory failure, secondary to COPD exacerbation. Status post bronchoscopy with BAL on 01/21/2023. Cultures revealed no growth, cytology pending. The patient's oxygen is improved and currently she is on 2 L of O2 nasal cannula with pulse ox of 98% History of chronic obstructive pulmonary disease. Acute tracheobronchitis. 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 Plan: Start tapering the steroids Bronchial wash cultures revealed no growthCardiac catheterization was noted Continue her home pulmonary medications, oxygen Complete a prednisone taper at the time of discharge
[2023-01-25 16:38] LABS: Glucose,Whole Blood 179 mg/dL (70-110)
[2023-01-25 20:06] LABS: Glucose,Whole Blood 203 mg/dL (70-110)
[2023-01-25] MEDS: ALPRAZolam 0.25 MG TAB PO PRN (23:37)
[2023-01-26 06:06] LABS: Glucose,Whole Blood 115 mg/dL (70-110)
[2023-01-26] MEDS: INSULIN ASPART (NovoLOG) 100 UNIT/ML VIAL SQ SCH ×2 (06:13→12:03)
[2023-01-26] MEDS: methylPREDNISolone SOD SUCCI 125 MG/2 ML VIAL IV SCH (06:16)
[2023-01-26] MEDS: HYDROcodone/APAP 7.5-325MG 1 EACH TAB PO PRN (06:21)
[2023-01-26] MEDS ORDERED: HEPARIN SODIUM,PORCINE (1 ML) 2,500 UNIT in SODIUM CHLORIDE 0.9% 250 ML IRRIGATION PRN (07:00)
[2023-01-26] MEDS ORDERED: HEPARIN SODIUM,PORCINE 10,000 UNIT in SODIUM CHLORIDE 0.9% 1,000 ML IRRIGATION PRN (07:00)
[2023-01-26] MEDS: FORMOTEROL FUMARATE 20 MCG/2 ML NEBU INHALATION SCH (08:39)
[2023-01-26] MEDS: BUDESONIDE 1 MG/2 ML NEBU INHALATION SCH (08:39)
[2023-01-26] MEDS: IPRATROPIUM-ALBUTEROL 3 ML NEB INHALATION SCH ×2 (08:39→12:12)
[2023-01-26] MEDS: DOXYCYCLINE 100 MG CAP PO SCH (08:51)
[2023-01-26] MEDS: LOSARTAN-HCTZ 50-12.5 MG 1 EACH TAB PO SCH (08:51)
[2023-01-26] MEDS: MONTELUKAST 10 MG TAB PO SCH (08:51)
[2023-01-26] MEDS: ALPRAZolam 0.25 MG TAB PO PRN (08:51)
[2023-01-26] MEDS: ESCITALOPRAM 10 MG TAB PO SCH (08:52)
[2023-01-26] MEDS: FAMOTIDINE 20 MG/2 ML VIAL IV SCH (08:52)
[2023-01-26] MEDS: HEPARIN SODIUM,PORCINE/PF 5,000 UNIT/0.5 ML SYRINGE SQ SCH (08:53)
[2023-01-26] MEDS: amLODIPine 5 MG TAB PO SCH (08:53)
[2023-01-26 10:14] VITALS: TEMP 98.2
[2023-01-26] MEDS: SODIUM CHLORIDE 0.9% 1,000 ML in EMPTY BAG 1 BAG IV SCH (10:16)
[2023-01-26 11:36] LABS: Glucose,Whole Blood 187 mg/dL (70-110)
--- NOTE | 2023-01-26 11:43 | P.PN ---
Subjective Progress Note Date: 01/26/23 this is a 62-year-old female known history of severe COPD, normally sees Dr. Garcia for her COPD. Patient is on oxygen but she is not compliant with her. She is multiple bronchodilators, quit smoking a few months ago. Patient was admitted last night with symptoms of acute exacerbation of COPD. Her symptoms for the last 4 or 5 days have been symptoms of cough wheezing shortness of breath. Cough has been productive with brownish phlegm, but no fever, no chills, no hemoptysis, and no chest pain.chest x-ray showed no active active cardiopulmonary disease, she does have COPD findings.labs including CBC, basic metabolic profile, renal profile are all normal.patient was placed on BiPAP at 14/6 and 45% and she was noted to have significant dyspnea on her initial presentation. By the time I evaluated the patient, she was feeling better, breathing easier, nonetheless on physical examination she had diffuse rhonchi and wheezes bilaterally. Patient was reevaluated today 01/17/23, patient is feeling better less cough and less wheezing less shortness of breath improved but not back to baseline. Patient is obviously responding well to her present course of bronchodilators and steroids, and she will probably need another day of IV Solu-Medrol before we could consider discharge planning on this patient. Progress note dated 01/18/2023. 62-year-old female with history of COPD. She was admitted to the hospital a couple days ago with a COPD exacerbation. She came in with shortness of breath, cough, wheezing, chest tightness, and brown phlegm production. The patient is on 2 L nasal cannula. She's not receiving any IV fluids. The patient is seen today in room 357. The only new labs today is a glucose of 161. Progress note dated 01/19/2023. 62-year-old female seen today in room 518. She was admitted with a diagnosis of COPD exacerbation. The patient continues on oxygen at 2 L. No IV fluids. She still very short of breath, bronchospastic, and coughing quite a bit. She prob ably needs 1 more day in the hospital. No new laboratory data as yet. Microbiology data is negative are pending. Chest CT was negative for any acute process. She remains on Pulmicort, formoterol, albuterol, ipratropium bromide, and Solu-Medrol. She's also on Singulair, 10 mg. The patient is seen today 01/20/2023 in follow-up on the regular medical floor. She is maintaining good O2 saturations in the 90s on room air. She is quite bronchospastic and wheezing. Still with some chest tightness. Not much improvement. She is continued on DuoNeb inhalations, Pulmicort and Perforomist inhalations, Singulair, Solu-Medrol. Empiric antibiotics in the form of doxycycline. Heparin for DVT prophylaxis. Blood sugar 107. The patient is seen today 01/21/2023 in follow-up on the regular medical floor. She is currently sitting up in bed. Awake and alert in no acute distress. She is a bit better today compared to yesterday. Still not back to her baseline. Plan is for bronchoscopy with BAL today. blood glucose 110. She is continued on DuoNeb inhalations, Pulmicort and Perforomist inhalations, Solu-Medrol. Empiric antibiotics in the form of Vibramycin. Heparin for DVT prophylaxis. The patient is seen today 01/22/2023 in follow-up on the regular medical floor. She is currently sitting up in a chair at the bedside. Awake and alert in no acute distress. Maintaining O2 saturation in the 90s on 2 L/m per nasal cannula. She continues to have some cough, congestion and wheezing. Not much improvement following bronchoscopy with BAL yesterday. She did have many retained secretions that were suctioned out. Cultures and cytology pending. She remains on DuoNeb inhalations, Pulmicort and Perforomist inhalations, IV Solu-Medrol. Heparin for DVT prophylaxis. Empiric antibiotics in the form of doxycycline. The patient is seen today 01/23/2023 in follow-up on the regular medical floor. She is currently resting comfortably in bed. Awake and alert in no acute distress. Feeling quite a bit better. Less cough and congestion. Less chest tightness. Maintaining O2 saturations in the 90s on room air. She does have home oxygen as needed. She remains on DuoNeb inhalations, Pulmicort and Perforomist inhalations, IV Solu-Medrol. Heparin for DVT prophylaxis. Empiric antibiotics in the form of doxycycline. The patient is seen today 01/24/2023 in follow-up on the regular medical floor. She is sitting up in bed awake and alert in no acute distress. Feeling back to her baseline. Hoping to go home. She is maintaining good O2 saturations in the 90s on room air. Follow-up chest x-ray shows no acute cardiopulmonary process. Evidence of COPD. Bronchial wash cultures revealed no growth. White count 15.4. Hemoglobin 12.1. Platelets 229. Sodium 135. Potassium 4.7. Bicarb 28. BUN 33. Creatinine 0.8. Glucose 119. She remains on DuoNeb inhalations, Pulmicort and performance inhalations, Singulair, Solu-Medrol. Empiric antibiotics in the form of Vibramycin. Heparin for DVT prophylaxis. . On today's evaluation of 01/25/2023, the patient's COPD stable. The patient is post bronchoscopy that showed no microbial growth. Remains on DuoNeb, remains on Pulmicort and Perforomist the blood treatments and IV Solu-Medrol. The patient is also on broad-spectrum antibiotic coverage with tobramycin. The patient underwent a cardiac catheterization due to recurrent episodes of chest pain that hasn't responded to nitroglycerin. The patient's cardiac therese terization showed normal coronaries with mild disease involving the LAD with a 30% stenosis. The filling pressures were essentially within normal limits. 01/26/2023, the patient is doing well. No specific complaints. No major respiratory difficulties from and the patient is still recovering from her acute COPD exacerbation. Cardiac catheterization was completed yesterday. No major abnormalities other than a 30% stenosis of the LAD. The patient is ambulating. The patient's family chest pain. No other active issues for now. Objective - Vital Signs Vital signs: Vital Signs Temp 97.8 F 01/26/23 04:11 Pulse 80 01/26/23 09:00 Resp 16 01/26/23 04:11 BP 123/63 01/26/23 04:11 Pulse Ox 95 01/26/23 08:41 FiO2 21 01/26/23 08:41 Intake & Output 01/25/23 01/26/23 01/26/23 18:59 06:59 18:59 Intake Total 497 Balance 497 Intake: IV 50 Intake, IV Titration 225 Amount Sodium Chloride 0.9% 1, 225 000 ml In Empty Bag 1 bag @ 1 ML/KG/HR 73.936 mls/ hr IV .[id number] [facility] Rx#: [id number] Oral 222 Other: Voiding Method Toilet Toilet # Voids 1 # Bowel Movements 1 - Exam GENERAL EXAM: Alert, very pleasant 62-year-old female, on room air, comfortable in no apparent distress. HEAD: Normocephalic. EYES: Normal reaction of pupils, equal size. NOSE: Clear with pink turbinates. THROAT: No erythema or exudates. NECK: No masses, no JVD. CHEST: No chest wall deformity. LUNGS: Equal air entry with bilateral end expiratory wheeze, diminished. CVS: S1 and S2 normal with no audible murmur, regular rhythm. ABDOMEN: No hepatosplenomegaly, normal bowel sounds, no guarding or rigidity. SPINE: No scoliosis or deformity SKIN: No rashes CENTRAL NERVOUS SYSTEM: No focal deficits, tone is normal in all 4 extremities. EXTREMITIES: There is no peripheral edema. No clubbing, no cyanosis. Peripheral pulses are intact. - Labs CBC & Chem 7: 01/24/23 06:45 01/24/23 06:45 Labs: Abnormal Lab Results - Last 24 Hours (Table) 01/25/23 01/25/23 01/26/23 Range/Units 16:29 20:05 06:04 POC Glucose (mg/dL) 179 H 203 H 115 H (70-110) mg/dL Microbiology - Last 24 Hours (Table) 01/21/23 14:00 Gram Stain - Final Bronchoalviolar Lavage - Right Bronchial Washings Culture - Final Assessment and Plan Plan: Acute on chronic hypoxemic respiratory failure, secondary to COPD exacerbation. Status post bronchoscopy with BAL on 01/21/2023. Cultures revealed no growth, cytology pending. The patient's oxygen is improved and currently she is on 2 L of O2 nasal cannula with pulse ox of 98% History of chronic obstructive pulmonary disease. Acute tracheobronchitis. 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 Plan: Start tapering the steroids , and IV Solu-Medrol will be discontinued and the patient will be started on prednisone burst taper Bronchial wash cultures revealed no growth Cardiac catheterization was noted Patient has a home nebulizer and the patient will be followed up by pulmonary on outpatient basis regarding her COPD. Complete a prednisone taper at the time of discharge
[2023-01-26 13:44] VITALS: BP 143/82; PULSE 82; RESP 17
--- NOTE | 2023-01-27 07:24 | P.PN ---
Subjective Progress Note Date: 01/26/23 HISTORY OF PRESENT ILLNESS: This is a 62-year-old female with a past medical history significant for hy pertension, COPD, and former nicotine dependence. 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 We have been asked to see the patient in consultation for shortness of breath. Patient examined at the bedside. Patient presented to the hospital with a chief complaint of shortness of breath. The patient states she took for breathing treatments at home and had little improvement in her breathing so she came to the emergency room. She is being treated for COPD exacerbation. She is currently receiving IV steroids. She states her breathing has improved although she still has some wheezing this morning. The patient currently denies any chest pain or pressure. She states occasionally over the past week she has been having some discomfort in her chest. The pain is nonexertional. She states that if she rubs her chest or lays in bed a certain way the pain improves. She denies having any stress test in the past. She does report a family history of coronary artery disease. * EKG reveals sinus mechanism with T-wave inversions in anterior and inferior leads * Chest xray no acute cardiopulmonary process. COPD changes. * Laboratory data: WBC 15.45. Hemoglobin 12.1. Platelet count 229. Sodium 135. Potassium 4.7. BUN 32. Creatinine 0.8. * Current home cardiac medications include none * Echocardiogram completed revealing ejection fraction 55-60%, moderate pulmonary hypertension, mild mitral and mild tricuspid regurgitation 01/26 Patient is seen today in follow-up. Yesterday, patient underwent left heart catheterization with Dr. Lama that revealed relatively normal coronary crispin claudio other than mid LAD 30% stenosis. Patient was cleared for discharge and can follow-up in the office in one to 2 weeks. Patient denies any new complaints. PHYSICAL EXAM: VITAL SIGNS: Reviewed. GENERAL: Well-developed in no acute distress. HEENT: Head is normocephalic. Pupils are equal, round. Sclerae anicteric. Mucous membranes of the mouth are moist. Neck supple. No JVD or thyromegaly LUNGS: Respirations even and unlabored. Lungs with rhonchi throughout and expiratory wheezing HEART: Regular rate and rhythm. S1 and S2 heard. Soft systolic murmur noted ABDOMEN: Soft. Nondistended. Nontender. EXTREMITIES: Normal range of motion. No clubbing or cyanosis. Peripheral pulses intact. No lower extremity edema NEUROLOGIC: Awake and alert. Oriented x 3. ASSESSMENT: Shortness of breath Acute COPD exacerbation, status post bronchoscopy on 01/21/2023 Moderate pulmonary hypertension Hypertension Former nicotine dependence Coronary artery calcifications per CT PLAN: Continue current cardiac medications Patient is stable for discharge home today from a cardiac standpoint Patient will follow up in the office with Dr. Lama Nurse practitioner note has been reviewed by physician. Signing provider agrees with the documented findings, assessment, and plan of care. Objective - Vital Signs Vital signs: Vital Signs Temp 98.2 F 01/26/23 08:50 Pulse 80 01/26/23 09:00 Resp 18 01/26/23 08:50 BP 130/63 01/26/23 08:50 Pulse Ox 98 01/26/23 08:50 FiO2 21 01/26/23 08:41 Intake & Output 01/25/23 01/26/23 01/26/23 18:59 06:59 18:59 Intake Total 497 Balance 497 Intake: IV 50 Intake, IV Titration 225 Amount Sodium Chloride 0.9% 1, 225 000 ml In Empty Bag 1 bag @ 1 ML/KG/HR 73.936 mls/ hr IV .[id number] [facility] Rx#: [id number] Oral 222 Other: Voiding Method Toilet Toilet Toilet # Voids 1 # Bowel Movements 1 - Labs CBC & Chem 7: 01/24/23 06:45 01/24/23 06:45 Labs: Abnormal Lab Results - Last 24 Hours (Table) 01/25/23 01/25/23 01/26/23 Range/Units 16:29 20:05 06:04 POC Glucose (mg/dL) 179 H 203 H 115 H (70-110) mg/dL Microbiology - Last 24 Hours (Table) 01/21/23 14:00 Gram Stain - Final Bronchoalviolar Lavage - Right Bronchial Washings Culture - Final
[2023-01-27] MEDS ORDERED: predniSONE 20 MG TAB PO SCH (09:00)
== END 2023-01-26 14:48 | disposition home or self-care (01) | DRG 190 ==
LOC: EC 06:36 → 3SCARD 09:12 → OBSVTOIN 01-18 10:18 → 5NMEDONC 01-18 15:38 → 3SCARD 01-25 15:14
PROVIDERS: ADMIT Family Medicine; ATTEND Family Medicine
PROC: 5A09357 Assistance with Respiratory Ventilation, Less than 24 Consecutive Hours, Continuous Positive Airway Pressure (ICD-10-PCS; 2023-01-16)
PROC: 0BC68ZZ Extirpation of Matter from Right Lower Lobe Bronchus, Via Natural or Artificial Opening Endoscopic (ICD-10-PCS; principal; 2023-01-21 13:40)
PROC: 0BC58ZZ Extirpation of Matter from Right Middle Lobe Bronchus, Via Natural or Artificial Opening Endoscopic (ICD-10-PCS; principal; 2023-01-21 13:40)
PROC: 0BC98ZZ Extirpation of Matter from Lingula Bronchus, Via Natural or Artificial Opening Endoscopic (ICD-10-PCS; principal; 2023-01-21 13:40)
PROC: 0BCB8ZZ Extirpation of Matter from Left Lower Lobe Bronchus, Via Natural or Artificial Opening Endoscopic (ICD-10-PCS; principal; 2023-01-21 13:40)
PROC: 0BC48ZZ Extirpation of Matter from Right Upper Lobe Bronchus, Via Natural or Artificial Opening Endoscopic (ICD-10-PCS; principal; 2023-01-21 13:40)
PROC: 0BC88ZZ Extirpation of Matter from Left Upper Lobe Bronchus, Via Natural or Artificial Opening Endoscopic (ICD-10-PCS; principal; 2023-01-21 13:40)
PROC: 0B9D8ZX Drainage of Right Middle Lung Lobe, Via Natural or Artificial Opening Endoscopic, Diagnostic (ICD-10-PCS; principal; 2023-01-21 13:40)
PROC: B2111ZZ Fluoroscopy of Multiple Coronary Arteries using Low Osmolar Contrast (ICD-10-PCS; 2023-01-25 16:30)
PROC: 4A023N7 Measurement of Cardiac Sampling and Pressure, Left Heart, Percutaneous Approach (ICD-10-PCS; 2023-01-25 16:30)
DX: J44.1 Chronic obstructive pulmonary disease with (acute) exacerbation (principal); J96.21 Acute and chronic respiratory failure with hypoxia; T17.890A Other foreign object in other parts of respiratory tract causing asphyxiation, initial encounter; I27.20 Pulmonary hypertension, unspecified; J44.0 Chronic obstructive pulmonary disease with (acute) lower respiratory infection; J20.9 Acute bronchitis, unspecified; Z28.310 Unvaccinated for COVID-19; I10 Essential (primary) hypertension; I25.10 Atherosclerotic heart disease of native coronary artery without angina pectoris; I25.84 Coronary atherosclerosis due to calcified coronary lesion; F41.9 Anxiety disorder, unspecified; Z79.51 Long term (current) use of inhaled steroids; Z79.899 Other long term (current) drug therapy; Z87.891 Personal history of nicotine dependence; Z88.1 Allergy status to other antibiotic agents; Z88.0 Allergy status to penicillin
CPT/HCPCS: 31624; 36415; 71045; 71250; 76937; 80048; 80053; 83036; 83605; 83735; 83880; 84484; 85025; 85610; 85730; 87070; 87075; 87102; 87116; 87205; 87206; 88108; 88305; 89050; 93005; 93306; 93458; 94640; 94660; 94760; 96374; 99285

== ENCOUNTER 2023-05-20 18:22 | Inpatient (IN) | payer MEDICARE, OTHER ==
--- NOTE | 2023-05-20 18:36 | ED ---
General Adult HPI - General Chief complaint: Shortness of Breath Stated complaint: JULIA Time Seen by Provider: 05/20/23 18:27 Source: patient, EMS Mode of arrival: EMS Limitations: no limitations - History of Present Illness Initial comments: Patient presents to the ED by ambulance for evaluation. Patient states that she has been dyspneic since about 2 AM this morning. Patient also admits to having diffuse chest tightness, a cough and rhinorrhea. Patient has a history of COPD, and she states that she is on 2.5 L of home O2. Patient states that she gave herself about 10 "breathing treatments" today with minimal relief. Patient was given a DuoNeb treatment, IV Solu-Medrol and epinephrine by EMS. Patient reports improvement in her symptoms with these measures. Patient denies trauma or injury, fever or chills, headache, focal numbness/weakness/neuro deficit, neck/arm/jaw/back pain, pleuritic pain, hemoptysis, palpitations, dizziness, nausea/vomiting/diarrhea, abdominal pain, bloody or melanotic stool, dysuria or urinary symptoms, decreased urine output, leg or calf swelling or pain, or any other symptoms or complaints. - Related Data Home Medications Medication Instructions Recorded Confirmed Ergocalciferol (Vitamin D2) 1,250 mcg PO ARELLANO 01/16/23 01/16/23 [Drisdol (50,000 Iu)] Montelukast [Singulair] 10 mg PO DAILY 01/16/23 01/16/23 Previous Rx's Medication Instructions Recorded Budesonide [Pulmicort] 1 mg INHALATION RT-BID 30 Days #60 01/26/23 ml Doxycycline [Vibramycin] 100 mg PO BID 7 Days #14 cap 01/26/23 Escitalopram [Lexapro] 10 mg PO DAILY 30 Days #30 tab 01/26/23 Ipratropium-Albuterol Nebulize 3 ml INHALATION RT-QID 30 Days 01/26/23 [Duoneb 0.5 mg-3 mg/3 ml Soln] #120 each Losartan-Hctz 50-12.5 mg [Hyzaar 1 each PO DAILY 90 Days #90 tab 01/26/23 50-12.5] amLODIPine [Norvasc] 5 mg PO DAILY 90 Days #90 tab 01/26/23 predniSONE [Deltasone] 40 mg PO DAILY 15 Days #15 tab 01/26/23 Allergies Allergy/AdvReac Type Severity Reaction Status Date / Time ciprofloxacin [From Cipro] Allergy Rash/Hives Verified 01/16/23 10:53 ciprofloxacin HCl Allergy Rash/Hives Verified 01/16/23 10:53 [From Cipro] Penicillins Allergy "Passed Verified 01/16/23 10:53 out" Review of Systems ROS Statement: Those systems with pertinent positive or pertinent negative responses have been documented in the HPI. ROS Other: All systems not noted in ROS Statement are negative. Past Medical History Past Medical History: COPD History of Any Multi-Drug Resistant Organisms: None Reported Additional Past Surgical History / Comment(s): neck C2-C6 lamenectomy with bracket placement Past Psychological History: Anxiety Smoking Status: Former smoker Past Alcohol Use History: None Reported Past Drug Use History: Marijuana - Past Family History Father Family Medical History: Cancer Mother Family Medical History: AICD/Pacemaker General Exam Limitations: no limitations General appearance: alert Head exam: Present: normocephalic Eye exam: Present: normal appearance ENT exam: Present: mucous membranes moist Neck exam: Present: other (Trachea is in midline) Respiratory exam: Present: respiratory distress, wheezes, prolonged expiratory. Absent: rales, rhonchi, stridor, chest wall tenderness Cardiovascular Exam: Present: regular rate, normal rhythm, normal heart sounds, other (Normal radial pulses bilaterally) GI/Abdominal exam: Present: soft. Absent: distended, tenderness, guarding Extremities exam: Present: other (Negative Homans sign bilaterally). Absent: tenderness, pedal edema, calf tenderness Neurological exam: Present: alert, oriented X3 Psychiatric exam: Present: normal affect Skin exam: Present: warm, dry, normal color Course Vital Signs 05/20/23 05/20/23 05/20/23 18:25 18:52 19:05 Temperature Pulse Rate 91 86 107 H Respiratory 24 Rate Blood Pressure 151/75 O2 Sat by Pulse 98 Oximetry 05/20/23 05/20/23 19:11 19:53 Temperature 98.0 F Pulse Rate 89 Respiratory Rate Blood Pressure O2 Sat by Pulse Oximetry - Reevaluation(s) Reevaluation #1: 05/20/23 19:41 Case was discussed with Dr. Wu who is currently in the ED. He accepts [facility] admission. He has no further recommendations at this time. 05/20/23 20:04 Patient reports improvement in her dyspnea with the DuoNeb treatment that she was given in the ED. Patient's respiratory distress has improved. Patient remains alert. Patient is aware of her test results, and she agrees with hospital admission at this time. EKG Findings - EKG Comments: EKG Findings:: ED physician interpretation (interpreted by me): Normal sinus rhythm, no ectopy, ventricular rate of 86 bpm, normal NE and QRS intervals, normal QT interval, normal axis, no ST or T-wave abnormality Medical Decision Making - Medical Decision Making Was pt. sent in by a medical professional or institution (, PA, POLICE LIAISON, urgent care, hospital, or fdc...) When possible be specific @ -No Did you speak to anyone other than the patient for history (EMS, parent, family, police, friend...)? What history was obtained from this source @ -No Did you review nursing and triage notes (agree or disagree)? Why? @ -I reviewed and agree with nursing and triage notes Were old charts reviewed (outside hosp., previous admission, EMS record, old EKG, old radiological studies, urgent care reports/EKG's, fdc records)? Report findings @ -No old charts were reviewed Differential Diagnosis (chest pain, altered mental status, abdominal pain women, abdominal pain men, vaginal bleeding, weakness, fever, dyspnea, syncope, headache, dizziness, GI bleed, back pain, seizure, CVA, palpatations, mental health, musculoskeletal)? @ -Differential Dyspnea: Coronary syndrome, arrhythmia, acute bronchitis, URI, viral illness, pleural effusion, asthma, COPD, CHF, pneumonia, pneumothorax, pulmonary effusion, anaphylaxis, anemia, neuromuscular, this is not meant to be an all-inclusive list. EKG interpreted by me (3pts min.). @ -As above X-rays interpreted by me (1pt min.). @ -Chest x-ray was reviewed myself and shows COPD changes. CT interpreted by me (1pt min.). @ -None done U/S interpreted by me (1pt. min.). @ -None done What testing was considered but not performed or refused? (CT, X-rays, U/S, labs)? Why? @ -None What meds were considered but not given or refused? Why? @ -None Did you discuss the management of the patient with other professionals ( professionals i.e. DrCam, PA, POLICE LIAISON, lab, RT, psych nurse, social welfare clerk, class c truck driver, teacher, neighborhood conservation officer, director of casework)? Give summary @ -As above Was smoking cessation discussed for >3mins.? @ -No Was critical care preformed (if so, how long)? @ -Yes, 50 minutes. Were there social determinants of health that impacted care today? How? (Homelessness, low income, unemployed, alcoholism, drug addiction, transportation, low edu. Level, literacy, decrease access to med. care, skilled nursing, rehab)? @ -No Was there de-escalation of care discussed even if they declined (Discuss DNR or withdrawal of care, Hospice)? DNR status @ -No What co-morbidities impacted this encounter? (DM, HTN, Smoking, COPD, CAD, Cancer, CVA, ARF, Chemo, Hep., AIDS, mental health diagnosis, sleep apnea, morbid obesity)? @ -COPD Was patient admitted / discharged? Hospital course, mention meds given and rout e, prescriptions, significant lab abnormalities, going to OR and other pertinent info. @ -Patient presented to the ED with respiratory distress, prolonged expiration and wheezes. Patient has a history of COPD, and her signs/symptoms/exam are consistent with of COPD exacerbation. Patient has been treated with IV Solu- Medrol (by EMS) and DuoNeb treatments. Patient's labs are unremarkable. Patient's chest x-ray shows findings consistent with COPD, but no infiltrate is seen. Will admit the patient to the hospital for continued evaluation and treatment. Dr. Wu has accepted hospital admission. Undiagnosed new problem with uncertain prognosis? @ -No Drug Therapy requiring intensive monitoring for toxicity (Heparin, Nitro, Insulin, Cardizem)? @ -No Were any procedures done? @ -No Diagnosis/symptom? @ -COPD exacerbation Acute, or Chronic, or Acute on Chronic? @ -Acute on chronic Uncomplicated (without systemic symptoms) or Complicated (systemic symptoms)? @ -default Side effects of treatment? @ -No Exacerbation, Progression, or Severe Exacerbation? @ -No Poses a threat to life or bodily function? How? (Chest pain, [place], [place], pneumonia, PE, COPD, DKA, ARF, appy, cholecystitis, CVA, Diverticulitis, Homicidal, Suicidal, threat to staff... and all critical care pts) @ -No - Lab Data Result diagrams: 05/20/23 18:50 05/20/23 18:50 Lab Results 05/20/23 05/20/23 05/20/23 Range/Units 18:50 18:50 18:50 WBC 8.2 (3.8-10.6) k/uL RBC 4.93 (3.80-5.40) m/uL Hgb 14.1 (11.4-16.0) gm/dL Hct 42.4 (34.0-46.0) % MCV 86.0 (80.0-100.0) fL MCH 28.6 (25.0-35.0) pg MCHC 33.2 (31.0-37.0) g/dL RDW 13.9 (11.5-15.5) % Plt Count 192 (150-450) k/uL MPV 8.1 Neutrophils % 66 % Lymphocytes % 20 % Monocytes % 4 % Eosinophils % 8 % Basophils % 0 % Neutrophils # 5.4 (1.3-7.7) k/uL Lymphocytes # 1.6 (1.0-4.8) k/uL Monocytes # 0.4 (0-1.0) k/uL Eosinophils # 0.7 (0-0.7) k/uL Basophils # 0.0 (0-0.2) k/uL PT 10.2 (10.0-12.5) sec INR 0.9 (<1.2) APTT 22.2 (22.0-30.0) sec Sodium 139 (137-145) mmol/L Potassium 3.7 (3.5-5.1) mmol/L Chloride 105 (98-107) mmol/L Carbon Dioxide 24 (22-30) mmol/L Anion Gap 10 mmol/L BUN 12 (7-17) mg/dL Creatinine 0.67 (0.52-1.04) mg/dL Est GFR (CKD-EPI)AfAm >90 (>60 ml/min/1.73 sqM) Est GFR (CKD-EPI)NonAf >90 (>60 ml/min/1.73 sqM) Glucose 97 (74-99) mg/dL Plasma Lactic Acid Allen (0.7-2.0) mmol/L Calcium 9.4 (8.4-10.2) mg/dL Total Bilirubin 0.3 (0.2-1.3) mg/dL AST 20 (14-36) U/L ALT 13 (4-34) U/L Alkaline Phosphatase 64 (38-126) U/L Troponin I (0.000-0.034) ng/mL NT-Pro-B Natriuret Pep 92 pg/mL Total Protein 6.9 (6.3-8.2) g/dL Albumin 4.2 (3.5-5.0) g/dL Influenza Type A (PCR) (Not Detectd) Influenza Type B (PCR) (Not Detectd) RSV (PCR) (Not Detectd) SARS-CoV-2 (PCR) (Not Detectd) 05/20/23 05/20/23 05/20/23 Range/Units 18:50 18:50 18:50 WBC (3.8-10.6) k/uL RBC (3.80-5.40) m/uL Hgb (11.4-16.0) gm/dL Hct (34.0-46.0) % MCV (80.0-100.0) fL MCH (25.0-35.0) pg MCHC (31.0-37.0) g/dL RDW (11.5-15.5) % Plt Count (150-450) k/uL MPV Neutrophils % % Lymphocytes % % Monocytes % % Eosinophils % % Basophils % % Neutrophils # (1.3-7.7) k/uL Lymphocytes # (1.0-4.8) k/uL Monocytes # (0-1.0) k/uL Eosinophils # (0-0.7) k/uL Basophils # (0-0.2) k/uL PT (10.0-12.5) sec INR (<1.2) APTT (22.0-30.0) sec Sodium (137-145) mmol/L Potassium (3.5-5.1) mmol/L Chloride (98-107) mmol/L Carbon Dioxide (22-30) mmol/L Anion Gap mmol/L BUN (7-17) mg/dL Creatinine (0.52-1.04) mg/dL Est GFR (CKD-EPI)AfAm (>60 ml/min/1.73 sqM) Est GFR (CKD-EPI)NonAf (>60 ml/min/1.73 sqM) Glucose (74-99) mg/dL Plasma Lactic Acid Allen 1.2 (0.7-2.0) mmol/L Calcium (8.4-10.2) mg/dL Total Bilirubin (0.2-1.3) mg/dL AST (14-36) U/L ALT (4-34) U/L Alkaline Phosphatase (38-126) U/L Troponin I <0.012 (0.000-0.034) ng/mL NT-Pro-B Natriuret Pep pg/mL Total Protein (6.3-8.2) g/dL Albumin (3.5-5.0) g/dL Influenza Type A (PCR) Not Detected (Not Detectd) Influenza Type B (PCR) Not Detected (Not Detectd) RSV (PCR) Not Detected (Not Detectd) SARS-CoV-2 (PCR) Not Detected (Not Detectd) - Radiology Data Chest x-ray (interpreted by me): COPD changes, no infiltrate. Critical Care Time Critical Care Time: Yes Total Critical Care Time: 50 Disposition Clinical Impression: COPD exacerbation Disposition: ADMITTED IP TO THIS HOSP Condition: Stable Is patient prescribed a controlled substance at d/c from ED?: No Referrals: Madan Krishnamurthy MD [Primary Care Provider] - 1-2 days Time of Disposition: 19:42
[2023-05-20] MEDS ORDERED: IPRATROPIUM-ALBUTEROL 3 ML NEB INHALATION STA ×2 (18:40→18:41)
[2023-05-20] MEDS ORDERED: LORazepam 2 MG/ML INJ IV STA (19:03)
[2023-05-20 19:07] LABS: Basophils % (A) 0 %; Eosinophils # (A) 0.7 k/uL (0-0.7); Eosinophils % (A) 8 %; HCT 42.4 % (34.0-46.0); HGB 14.1 gm/dL (11.4-16.0); Lymphocytes # (A) 1.6 k/uL (1.0-4.8); Lymphocytes % (A) 20 %; MCH 28.6 pg (25.0-35.0); MCHC 33.2 g/dL (31.0-37.0); Mean Platelet Volume 8.1; Monocytes # (A) 0.4 k/uL (0-1.0); Monocytes % (A) 4 %; Neutrophils # (A) 5.4 k/uL (1.3-7.7); Neutrophils % (A) 66 %; Platelet Count 192 k/uL (150-450); RBC 4.93 m/uL (3.80-5.40); RDW 13.9 % (11.5-15.5); WBC 8.2 k/uL (3.8-10.6)
[2023-05-20 19:18] LABS: INR 0.9 (<1.2); Partial Thromboplastin Time 22.2 sec (22.0-30.0); Prothrombin Time 10.2 sec (10.0-12.5)
[2023-05-20 19:29] LABS: ALT 13 U/L (4-34); AST 20 U/L (14-36); African American GFR (CKD) >90 (>60 ml/min/1.73 sqM); Albumin 4.2 g/dL (3.5-5.0); Alkaline Phosphatase 64 U/L (38-126); Anion Gap 10 mmol/L; Blood Urea Nitrogen 12 mg/dL (7-17); Calcium 9.4 mg/dL (8.4-10.2); Carbon Dioxide 24 mmol/L (22-30); Chloride 105 mmol/L (98-107); Glucose 97 mg/dL (74-99); Non-African American GFR(CKD) >90 (>60 ml/min/1.73 sqM); Potassium 3.7 mmol/L (3.5-5.1); Sodium 139 mmol/L (137-145); Total Bilirubin 0.3 mg/dL (0.2-1.3); Total Protein 6.9 g/dL (6.3-8.2)
[2023-05-20 19:38] LABS: NT-Pro-B-Type Natriuretic Pept 92 pg/mL
[2023-05-20] MEDS ORDERED: NALOXONE 0.4 MG/ML 1 ML VIAL IV PRN (19:42)
[2023-05-20] MEDS ORDERED: ALBUTEROL NEBULIZED 2.5 MG/3 ML INHALATION SCH (20:00)
--- NOTE | 2023-05-20 21:23 | P.HPIM ---
History of Present Illness H&P Date: 05/20/23 Patient is a 62-year-old female with a PMH of COPD with chronic hypoxic respiratory failure on 2.5 L nighttime supplemental oxygen who presents to the emergency room with complaints of shortness of breath, wheezing, and nonproductive cough. Patient also she woke up this morning like she normally do es at around 2 AM with some wheezing and shortness of breath but that today it was significantly worse and did not improve with a rescue inhalers. She reports using albuterol more than 10 times without significant relief. Reports persistent nonproductive cough with some pleuritic diffuse chest discomfort and significant wheezing. Denied experiencing lower extremity swelling, fever, nausea, vomiting, diaphoresis, or dizziness. In the emergency room EKG revealed sinus rhythm at 86 bpm with inferior lead Q waves with no ST/T-wave changes noted as reviewed by me. Chest x-ray revealed findings consistent with COPD with no acute abnormalities as reviewed by me. Laboratory evaluation was reviewed and revealed WBC count 8.2, troponin less than 0.012, proBNP 92, with influenza, RSV, and COVID-19 testing negative. SpO2 in the emergency room upon arrival was 98% on 4 L nasal cannula oxygen. ED documentation reviewed and case discussed with ED provider. Review of systems: Pertinent positives and negatives as discussed in HPI, a complete review of systems was performed and all other systems are negative. Physical examination: Vital signs reviewed General: non toxic, no distress, appears at stated age, normal weight Derm: no unusual rashes/lesions, warm Head: atraumatic, normocephalic, symmetric Eyes: EOMI, no lid lag, anicteric sclera, pupils equal round reactive to light ENT: Nose and ears atraumatic Neck: No cervical lymphadenopathy, trachea midline, supple Mouth: no lip lesion, mucus membranes moist Cardiovascular: S1S2 reg, no murmur, positive dorsalis pedis pulse bilateral, no edema Lungs: Significant bilateral wheezing without rhonchi or rales, no accessory muscle use Abdominal: soft, nontender to palpation, no guarding Ext: muscle strength 5 out of 5 in all 4 extremities grossly, no gross muscle atrophy, no contractures, Neuro: CN II-XI grossly intact, no gross focal neuro deficits Psych: Alert, oriented, appropriate affect Assessment: Acute COPD exacerbation Acute on chronic hypoxic respiratory failure Imaging: In the emergency room EKG revealed sinus rhythm at 86 bpm with inferior lead Q waves with no ST/T-wave changes noted as reviewed by me. Chest x-ray revealed findings consistent with COPD with no acute abnormalities as reviewed by me. Data Review: Laboratory evaluation was reviewed and revealed WBC count 8.2, troponin less than 0.012, proBNP 92, with influenza, RSV, and COVID-19 testing negative. SpO2 in the emergency room upon arrival was 98% on 4 L nasal cannula oxygen. Plan: Continue with DuoNeb's [id number] and as needed Initiate Solu-Medrol IV 60 mg every 6 hours Supplemental oxygen Pulmonary consult Cardiac monitoring DVT prophylaxis: Lovenox Subq The patient is admitted with an anticipated greater than 2 midnight stay for evaluation of COPD exacerbation CODE STATUS: Full Code Discussed with: Patient Anticipated discharge place: Home Past Medical History Past Medical History: COPD History of Any Multi-Drug Resistant Organisms: None Reported Additional Past Surgical History / Comment(s): neck C2-C6 lamenectomy with bracket placement Past Psychological History: Anxiety Smoking Status: Former smoker Past Alcohol Use History: None Reported Past Drug Use History: Marijuana - Past Family History Father Family Medical History: Cancer Mother Family Medical History: AICD/Pacemaker Medications and Allergies Home Medications Medication Instructions Recorded Confirmed Type ALPRAZolam [Xanax] 1 mg PO BID 05/20/23 05/20/23 History Albuterol Nebulized [Ventolin 2.5 mg INHALATION RT-Q4H PRN 05/20/23 05/20/23 History Nebulized] Albuterol Sulfate [Ventolin HFA] 2 puff INHALATION RT-Q4H PRN 05/20/23 05/20/23 History Fluticasone/Umeclidin/Vilanter 1 puff INHALATION RT-DAILY 05/20/23 05/20/23 History [Trelegy Ellipta 200-62.5-25] HYDROcodone/APAP 10-325MG [Schurz 1 tab PO TID 05/20/23 05/20/23 History 10-325] Allergies Allergy/AdvReac Type Severity Reaction Status Date / Time ciprofloxacin [From Cipro] Allergy Rash/Hives Verified 05/20/23 21:16 ciprofloxacin HCl Allergy Rash/Hives Verified 05/20/23 21:16 [From Cipro] Penicillins Allergy "Passed Verified 05/20/23 21:19 out" Physical Exam Vitals: Vital Signs Temp Pulse Resp BP Pulse Ox 05/20/23 20:24 102 H 20 138/72 98 05/20/23 20:14 92 05/20/23 19:53 89 05/20/23 19:11 98.0 F 05/20/23 19:05 107 H 05/20/23 18:52 86 05/20/23 18:30 24 05/20/23 18:25 91 24 151/75 98 Intake and Output 05/20/23 05/20/23 05/20/23 06:59 14:59 22:59 Other: Weight 74.843 kg Results CBC & Chem 7: 05/20/23 18:50 05/20/23 18:50
--- NOTE | 2023-05-20 21:55 | XR ---
EXAM: XR chest 1V portable CLINICAL INDICATION:Female, 63 years old with history of dyspnea; [facility] COMPARISON: 01/23/2023 TECHNIQUE: Chest single view. FINDINGS: Lines/tubes/devices: EKG leads and other extrinsic structures overlie the chest. No indwelling lines. Cardiomediastinum: Cardiac silhouette appears normal in size. Unremarkable mediastinal silhouette. Vasculature: No increased pulmonary vasculature. Lungs/pleura: No consolidation, sizeable effusion, or visible pneumothorax. Lungs appear hyperinflated with interst itial coarsening and mild biapical pleural thickening, findings suggestive of COPD/emphysema. Bones/soft tissues: Bony thorax appears grossly intact as seen. Regional soft tissues appear unremarkable. IMPRESSION: Changes of COPD/emphysema suggested, without evidence of acute superimposed airspace disease.
[2023-05-20] MEDS: HYDROcodone/APAP 10-325MG 1 EACH TAB PO SCH (22:58)
[2023-05-20] MEDS: ALPRAZolam 1 MG TAB PO SCH (22:59)
[2023-05-21] MEDS: methylPREDNISolone SOD SUCCI 125 MG/2 ML VIAL IV SCH ×4 (00:15→18:02)
[2023-05-21] MEDS: IPRATROPIUM-ALBUTEROL 3 ML NEB INHALATION PRN (06:17)
[2023-05-21] MEDS ORDERED: SYMBICORT 80-4.5 MCG INHALER INHALATION SCH (08:00)
[2023-05-21] MEDS: IPRATROPIUM-ALBUTEROL 3 ML NEB INHALATION SCH ×4 (09:22→21:32)
[2023-05-21] MEDS: HYDROcodone/APAP 10-325MG 1 EACH TAB PO SCH ×3 (09:23→21:58)
[2023-05-21] MEDS: DOXYCYCLINE 100 MG CAP PO SCH ×2 (09:23→21:57)
[2023-05-21] MEDS: ALPRAZolam 1 MG TAB PO SCH ×2 (09:24→21:58)
[2023-05-21] MEDS: ENOXAPARIN 40 MG/0.4 ML SYRINGE SQ SCH (09:29)
[2023-05-21 11:53] LABS: Basophils # (A) 0.01 X 10*3/uL (0.00-0.10); Basophils % (A) 0.1 %; Eosinophils # (A) 0 X 10*3/uL (0.04-0.35); Eosinophils % (A) 0 %; HCT 41.3 % (37.2-46.3); HGB 13.2 g/dL (12.0-15.0); Lymphocytes # (A) 0.57 X 10*3/uL (0.90-5.00); Lymphocytes % (A) 6.7 %; MCH 27.6 pg (27.0-32.0); MCV 86.4 FL (80.0-97.0); Mean Platelet Volume 11.3 FL (9.5-12.2); Monocytes # (A) 0.07 X 10*3/uL (0.20-1.00); Monocytes % (A) 0.8 %; NRBC Per 100 WBC 0 X 10*3/uL (0.00-0.01); Neutrophils # (A) 7.77 X 10*3/uL (1.80-7.70); Platelet Count 197 X 10*3/uL (140-440); RBC 4.78 X 10*6/uL (4.10-5.20); RDW 13.6 % (11.5-14.5); WBC 8.45 X 10*3/uL (4.50-10.00)
[2023-05-21 12:05] LABS: ALT 11 U/L (8-44); AST 10 U/L (13-35); Albumin 4.4 g/dL (3.8-4.9); Albumin/Globulin Ratio 1.91 Ratio (1.60-3.17); Alkaline Phosphatase 63 U/L (41-126); BUN/Creat Ratio 18.86 Ratio (12.00-20.00); Blood Urea Nitrogen 13.2 mg/dL (9.0-27.0); Calcium 9.5 mg/dL (8.7-10.3); Carbon Dioxide 24.6 mmol/L (21.6-31.8); Chloride 103 mmol/L (96-109); Globulin 2.3 g/dL (1.6-3.3); Glucose 176 mg/dL (70-110); Potassium 4.2 mmol/L (3.5-5.5); Sodium 139 mmol/L (135-145); Total Bilirubin <0.2 mg/dL (0.3-1.2); Total Protein 6.7 g/dL (6.2-8.2)
--- NOTE | 2023-05-21 12:50 | P.PN ---
Subjective Progress Note Date: 05/21/23 Hospital Course: 62-year-old female with a PMH of COPD with chronic hypoxic respiratory failure on 2.5 L nighttime supplemental oxygen who presents to the emergency room with complaints of shortness of breath, wheezing, and nonproductive cough. In the emergency room EKG revealed sinus rhythm at 86 bpm with inferior lead Q waves with no ST/T-wave changes noted as reviewed by me. Chest x-ray revealed findings consistent with COPD with no acute abnormalities as reviewed by me. Laboratory evaluation was reviewed and revealed WBC count 8.2, troponin less than 0.012, proBNP 92, with influenza, RSV, and COVID-19 testing negative. SpO2 in the emergency room upon arrival was 98% on 4 L nasal cannula oxygen. Patient admitted for COPD exacerbation. Pulmonology also consulted. Currently on bronchodilators and IV steroids. Subjective: Patient seen and examined at bedside. No acute events overnight. Still having significant shortness of breath Pertinent positives and negatives as discussed above, a complete review of systems was performed and all other systems are negative. Vitals Signs Reviewed. General: nontoxic, no distress, appears at stated age Derm: warm, dry Head: atraumatic, normocephalic, symmetric Eyes: EOMI, no lid lag, anicteric sclera Mouth: no lip lesion, mucus membranes moist Cardiovascular: S1S2 reg, no murmur Lungs: Bilateral inspiratory and expiratory wheezing , supplemental oxygen Abdominal: soft, nontender to palpation, no guarding, no appreciable organomegaly Ext: no gross muscle atrophy, no edema, no contractures Neuro: CN II-XI grossly intact, no focal neuro deficits Psych: Alert, oriented, appropriate affect Data Reviewed Today: Pertinent Labs: WBC 8.45, hemoglobin 13.2, potassium 4.2, creatinine 0.7, glucose 176 Imaging: No new imaging Assessment and Plan: Active: COPD with acute severe exacerbation Acute on chronic hypoxic respiratory failure Anxiety -Pulmonology consulted -Currently on IV Solu-Medrol 60 mg every 6 hours, monitor blood sugars daily and mental status -On oral Xanax 1 mg twice a day, monitor for respiratory depression -Continue bronchodilators and doxycycline 100 mg twice a day -Keep on telemetry -Patient has end-stage COPD requiring oxygen at home, will likely benefit from outpatient palliative care DVT ppx: Lovenox Code status: Full code Anticipated discharge place: Pending clinical course Anticipated discharge time: Pending clinical course Objective - Vital Signs Vital signs: Vital Signs Temp 97.9 F 05/21/23 11:39 Pulse 90 05/21/23 12:16 Resp 22 05/21/23 11:39 BP 132/77 05/21/23 11:39 Pulse Ox 93 L 05/21/23 11:39 FiO2 Intake & Output 05/20/23 05/21/23 05/21/23 18:59 06:59 18:59 Weight 74.843 kg 74.843 kg Other: # Voids 1 - Labs CBC & Chem 7: 05/21/23 07:09 05/21/23 07:09 Labs: Abnormal Lab Results - Last 24 Hours (Table) 05/21/23 05/21/23 Range/Units 07:09 07:09 Neutrophils # 7.77 H (1.80-7.70) X 10*3/uL Lymphocytes # 0.57 L (0.90-5.00) X 10*3/uL Monocytes # 0.07 L (0.20-1.00) X 10*3/uL Eosinophils # 0 L (0.04-0.35) X 10*3/uL Glucose 176 H (70-110) mg/dL Total Bilirubin <0.2 L (0.3-1.2) mg/dL AST 10 L (13-35) U/L
[2023-05-21] MEDS ORDERED: IBUPROFEN 600 MG TAB PO STA (13:05)
--- NOTE | 2023-05-21 13:48 | P.CNPUL ---
History of Present Illness Consult date: 05/21/23 Requesting physician: Giuliano Wu Reason for consult: dyspnea, COPD Chief complaint: Shortness of breath, cough, congestion History of present illness: This is a pleasant 63-year-old female patient with a known history of anxiety, marijuana use, former smoker with severe chronic obstructive pulmonary disease who follows with Dr. Swanson in our office. He presented to the emergency room yesterday with a 2-3 day history of increasing shortness of breath, cough and congestion. Chest x-ray revealed evidence of COPD but no acute pulmonary process. White count 8.4. Hemoglobin 13.2. Platelets 197. Sodium 139. Potassium 4.2. Bicarb 25. BUN 13. Creatinine 0.7. Glucose 176. Influenza screen negative, RSV screen negative, COVID-19 screen negative. She is seen today in consultation in the emergency department. Currently sitting up in a stretcher. She is dyspneic with conversation. Dyspneic with minimal exertion. Maintaining O2 saturations in the 90s on 3 L/m per nasal cannula. Afebrile. Hemodynamically stable. Review of Systems REVIEW OF SYSTEMS: CONSTITUTIONAL: Denies any recent significant weight loss or weight gain. EYES: Denies change in vision. EARS, NOSE, MOUTH, THROAT: Denies headaches, denies sore throat. CARDIOVASCULAR: Denies chest pain, palpitations or syncopal episodes. RESPIRATORY: Positive for shortness of breath, cough, congestion no hemoptysis. GASTROINTESTINAL: Denies change in appetite, denies abdominal pain GENITOURINARY: Denies hematuria, denies infections. MUSKULOSKELETAL: Denies pain, denies swelling. INTEGUMENTARY: Denies rash, denies eczema. NEUROLOGICAL: Denies recent memory loss, no recent seizure activity. PSYCHIATRIC: Denies anxiety, denies depression. HEMATOLOGIC/LYMPHATIC: Denies anemia, denies enlarged lymph nodes. Past Medical History Past Medical History: COPD History of Any Multi-Drug Resistant Organisms: None Reported Additional Past Surgical History / Comment(s): neck C2-C6 lamenectomy with bracket placement Past Psychological History: Anxiety Smoking Status: Former smoker Past Alcohol Use History: None Reported Past Drug Use History: Marijuana - Past Family History Father Family Medical History: Cancer Mother Family Medical History: AICD/Pacemaker Medications and Allergies Home Medications Medication Instructions Recorded Confirmed Type ALPRAZolam [Xanax] 1 mg PO BID 05/20/23 05/20/23 History Albuterol Nebulized [Ventolin 2.5 mg INHALATION RT-Q4H PRN 05/20/23 05/20/23 History Nebulized] Albuterol Sulfate [Ventolin HFA] 2 puff INHALATION RT-Q4H PRN 05/20/23 05/20/23 History Fluticasone/Umeclidin/Vilanter 1 puff INHALATION RT-DAILY 05/20/23 05/20/23 History [Trelegy Ellipta 200-62.5-25] HYDROcodone/APAP 10-325MG [[place] 1 tab PO TID 05/20/23 05/20/23 History 10-325] Allergies Allergy/AdvReac Type Severity Reaction Status Date / Time ciprofloxacin [From Cipro] Allergy Rash/Hives Verified 05/20/23 21:16 ciprofloxacin HCl Allergy Rash/Hives Verified 05/20/23 21:16 [From Cipro] Penicillins Allergy "Passed Verified 05/20/23 21:19 out" Physical Exam Vitals: Vital Signs Temp Pulse Resp BP BP Pulse Ox 05/21/23 12:16 90 05/21/23 12:03 93 05/21/23 11:39 97.9 F 22 132/77 93 L 05/21/23 11:32 74 22 137/84 96 05/21/23 06:28 81 05/21/23 06:18 91 05/20/23 23:56 20 143/70 97 05/20/23 22:57 104 H 20 143/78 99 05/20/23 20:24 102 H 20 138/72 98 05/20/23 20:14 92 05/20/23 19:53 89 05/20/23 19:11 98.0 F 05/20/23 19:05 107 H 05/20/23 18:52 86 05/20/23 18:30 24 05/20/23 18:25 91 24 151/75 98 Intake and Output 05/20/23 05/21/23 05/21/23 22:59 06:59 14:59 Other: # Voids 1 Weight 74.843 kg 74.843 kg GENERAL EXAM: Alert, pleasant 63-year-old female, on 3 L nasal cannula, fairly comfortable in no apparent distress. HEAD: Normocephalic. EYES: Normal reaction of pupils, equal size. NOSE: Clear with pink turbinates. THROAT: No erythema or exudates. NECK: No masses, no JVD. CHEST: No chest wall deformity. LUNGS: Equal air entry with bilateral end expiratory wheeze, diminished throughout. CVS: S1 and S2 normal with no audible murmur, regular rhythm. ABDOMEN: No hepatosplenomegaly, normal bowel sounds, no guarding or rigidity. SPINE: No scoliosis or deformity SKIN: No rashes CENTRAL NERVOUS SYSTEM: No focal deficits, tone is normal in all 4 extremities. EXTREMITIES: There is no peripheral edema. No clubbing, no cyanosis. Peripher al pulses are intact. Results - Laboratory Findings CBC and BMP: 05/21/23 07:09 05/21/23 07:09 PT/INR, D-dimer PT 10.2 sec (10.0-12.5) 05/20/23 18:50 INR 0.9 (<1.2) 05/20/23 18:50 Abnormal lab findings: Abnormal Labs 05/21/23 05/21/23 07:09 07:09 Neutrophils # 7.77 H Lymphocytes # 0.57 L Monocytes # 0.07 L Eosinophils # 0 L Glucose 176 H Total Bilirubin <0.2 L AST 10 L - Diagnostic Findings Chest x-ray: image reviewed Assessment and Plan Assessment: Acute exacerbation of chronic obstructive pulmonary disease Acute on chronic hypoxemic respiratory failure secondary to above History of chronic tobacco dependence, quit earlier this year. History of anxiety History of marijuana use Plan: The patient was seen and evaluated Chest x-ray, labs and medications reviewed Initiate DuoNeb inhalations, Symbicort, Solu-Medrol Empiric antibiotics in the form of doxycycline Titrate the FiO2 as tolerated Increase her activity as tolerated We will continue to follow and make further recommendations based on her clinical status I have personally seen and examined the patient, performed the documentation and the assessment and plan as written. Number of minutes spent on the visit: 20.
[2023-05-21] MEDS: SYMBICORT 160-4.5 MCG INHALER INHALATION SCH (21:32)
[2023-05-22] MEDS: methylPREDNISolone SOD SUCCI 125 MG/2 ML VIAL IV SCH ×5 (00:24→23:43)
[2023-05-22] MEDS: IPRATROPIUM-ALBUTEROL 3 ML NEB INHALATION SCH ×4 (08:09→21:15)
[2023-05-22] MEDS: SYMBICORT 160-4.5 MCG INHALER INHALATION SCH ×2 (08:09→21:16)
[2023-05-22] MEDS: ENOXAPARIN 40 MG/0.4 ML SYRINGE SQ SCH (09:55)
[2023-05-22] MEDS: HYDROcodone/APAP 10-325MG 1 EACH TAB PO SCH ×3 (09:55→20:25)
[2023-05-22] MEDS: DOXYCYCLINE 100 MG CAP PO SCH ×2 (09:55→20:25)
[2023-05-22] MEDS: ALPRAZolam 1 MG TAB PO SCH ×2 (09:55→20:25)
--- NOTE | 2023-05-22 12:36 | CT ---
EXAMINATION TYPE: CT angio chest DATE OF EXAM: 05/22/2023 COMPARISON: HISTORY: SOB, COPD CT DLP: 274.3 mGycm CONTRAST: CT chest with contrast and 3D reconstruction with MIP imaging is performed with IV Contrast, patient injected with 100 mL of Isovue 300. Contrast-enhanced CT of the chest was performed through the course of the pulmonary arteries with cynthia g and mediastinal window settings submitted. 3D reconstruction with MIP imaging was also performed. PULMONARY ARTERIES: The pulmonary arteries and their major tributaries are patent. I do not see chon dence for sizable filling defect to suggest pulmonary embolic process. LUNGS: The lungs are clear and free of infiltrate. No evidence for atelectasis. Nodular density left perihilar region measuring 6 mm. No pleural effusion. MEDIASTINUM: Thoracic aorta is of normal caliber,however, evaluation is limited given timing of the contrast bolus. If there is concern for thoracic aortic pathology consider CINTIA. Correlate clinicall y . The heart is not enlarged. No evidence for mediastinal mass. No mediastinal lymph nodes greater than 1cm. Calcified hilar mediastinal lymph nodes. HILAR STRUCTURES: No evidence for mass. No hilar lymph nodes greater than 1 cm. UPPER ABDOMEN: Limited evaluation of the upper abdomen. Pancreas is partially Imaged however there is fullness to the pancreatic tail. Consider CT abdomen pelvis in 24 hours furth er evaluation. IMPRESSION: 1. No evidence for Pulmonary embolism at this time.
--- NOTE | 2023-05-22 14:16 | P.PN ---
Subjective Progress Note Date: 05/22/23 This is a pleasant 63-year-old female patient with a known history of anxiety, marijuana use, former smoker with severe chronic obstructive pulmonary disease who follows with Dr. Swanson in our office. He presented to the emergency room yesterday with a 2-3 day history of increasing shortness of breath, cough and congestion. Chest x-ray revealed evidence of COPD but no acute pulmonary process. White count 8.4. Hemoglobin 13.2. Platelets 197. Sodium 139. Potassium 4.2. Bicarb 25. BUN 13. Creatinine 0.7. Glucose 176. Influenza screen negative, RSV screen negative, COVID-19 screen negative. She is seen today in consultation in the emergency department. Currently sitting up in a stretcher. She is dyspneic with conversation. Dyspneic with minimal exertion. Maintaining O2 saturations in the 90s on 3 L/m per nasal cannula. Afebrile. Hemodynamically stable. The patient is seen today 05/22/2023 in follow-up on the regular medical floor. She is currently awake and alert in no acute distress. She is continuing to maintain good O2 saturation in the 90s on 3 L/m per nasal cannula. Afebrile. Hemodynamically stable. CT angiogram revealed no evidence of pulmonary embolism. Lung longoria were clear and free of infiltrate. No atelectasis. No pleural effusion. She is continued on DuoNeb inhalations, Symbicort, Solu- Medrol. Empiric antibiotics in the form of doxycycline. Lovenox for DVT prophylaxis. Objective - Vital Signs Vital signs: Vital Signs Temp 98.1 F 05/22/23 13:00 Pulse 89 05/22/23 13:00 Resp 16 05/22/23 13:00 BP 145/77 05/22/23 13:00 Pulse Ox 92 L 05/22/23 13:00 FiO2 Intake & Output 05/21/23 05/22/23 05/22/23 18:59 06:59 18:59 Weight 74.843 kg Other: Voiding Method Toilet Toilet # Voids 2 1 2 - Exam GENERAL EXAM: Alert, 63-year-old female, on 3 L nasal cannula, comfortable in no apparent distress. HEAD: Normocephalic. EYES: Normal reaction of pupils, equal size. NOSE: Clear with pink turbinates. THROAT: No erythema or exudates. NECK: No masses, no JVD. CHEST: No chest wall deformity. LUNGS: Equal air entry with bilateral end expiratory wheeze, diminished throughout. CVS: S1 and S2 normal with no audible murmur, regular rhythm. ABDOMEN: No hepatosplenomegaly, normal bowel sounds, no guarding or rigidity. SPINE: No scoliosis or deformity SKIN: No rashes CENTRAL NERVOUS SYSTEM: No focal deficits, tone is normal in all 4 extremities. EXTREMITIES: There is no peripheral edema. No clubbing, no cyanosis. Peripheral pulses are intact. - Labs CBC & Chem 7: 05/21/23 07:09 05/21/23 07:09 Assessment and Plan Assessment: Acute exacerbation of chronic obstructive pulmonary disease Acute on chronic hypoxemic respiratory failure secondary to above History of chronic tobacco dependence, quit earlier this year History of anxiety History of marijuana use Plan: The patient was seen and evaluated Medications reviewed Continue the current treatment plan Titrate the FiO2 as tolerated Increase her activity as tolerated We will continue to follow I have personally seen and examined the patient, performed the documentation and the assessment and plan as written. Number of minutes spent on the visit: 10.
--- NOTE | 2023-05-22 14:32 | P.PN ---
Subjective Progress Note Date: 05/22/23 Hospital Course: 62-year-old female with a PMH of COPD with chronic hypoxic respiratory failure on 2.5 L nighttime supplemental oxygen who presents to the emergency room with complaints of shortness of breath, wheezing, and nonproductive cough. In the emergency room EKG revealed sinus rhythm at 86 bpm with inferior lead Q waves with no ST/T-wave changes noted as reviewed by me. Chest x-ray revealed findings consistent with COPD with no acute abnormalities as reviewed by me. Laboratory evaluation was reviewed and revealed WBC count 8.2, troponin less than 0.012, proBNP 92, with influenza, RSV, and COVID-19 testing negative. SpO2 in the emergency room upon arrival was 98% on 4 L nasal cannula oxygen. Patient admitted for COPD exacerbation. Pulmonology also consulted. Currently on bronchodilators and IV steroids. Subjective: Patient seen and examined at bedside. No acute events overnight. Still having significant shortness of breath but improving Pertinent positives and negatives as discussed above, a complete review of systems was performed and all other systems are negative. Vitals Signs Reviewed. General: nontoxic, no distress, appears at stated age Derm: warm, dry Head: atraumatic, normocephalic, symmetric Eyes: EOMI, no lid lag, anicteric sclera Mouth: no lip lesion, mucus membranes moist Cardiovascular: S1S2 reg, no murmur Lungs: Bilateral inspiratory and expiratory wheezing , supplemental oxygen Abdominal: soft, nontender to palpation, no guarding, no appreciable organomegaly Ext: no gross muscle atrophy, no edema, no contractures Neuro: CN II-XI grossly intact, no focal neuro deficits Psych: Alert, oriented, appropriate affect Data Reviewed Today: Pertinent Labs: WBC 8.45, hemoglobin 13.2, potassium 4.2, creatinine 0.7, glucose 176 Imaging: CTA showed no evidence of PE Assessment and Plan: Active: COPD with acute severe exacerbation Acute on chronic hypoxic respiratory failure Anxiety -Pulmonology reviewed, continue current therapy -Currently on IV Solu-Medrol 60 mg every 6 hours, monitor mental status -On oral Xanax 1 mg twice a day, monitor for respiratory depression -Continue bronchodilators and doxycycline 100 mg twice a day -Keep on telemetry -Patient has end-stage COPD requiring oxygen at home, had a discussion with regards to outpatient palliative care, patient would like to use Her referral to outpatient palliative DVT ppx: Lovenox Code status: Full code Anticipated discharge place: Pending clinical course Anticipated discharge time: Pending clinical course Objective - Vital Signs Vital signs: Vital Signs Temp 98.1 F 05/22/23 13:00 Pulse 89 05/22/23 13:00 Resp 16 05/22/23 13:00 BP 145/77 05/22/23 13:00 Pulse Ox 92 L 05/22/23 13:00 FiO2 Intake & Output 05/21/23 05/22/23 05/22/23 18:59 06:59 18:59 Weight 74.843 kg Other: Voiding Method Toilet Toilet # Voids 2 1 2 - Labs CBC & Chem 7: 05/21/23 07:09 05/21/23 07:09
--- NOTE | 2023-05-22 16:34 | CT ---
EXAMINATION TYPE: CT abdomen pelvis wo con DATE OF EXAM: 05/22/2023 COMPARISON: CTA chest 05/22/2023 HISTORY: Upper abdominal pain x [address] DLP: 594.6 mGycm Automated exposure control for dose reduction was used. TECHNIQUE: Helical acquisition of images was performed from the lung bases through the pelvis. FINDINGS: The lung bases are clear. There is no focal mass or organomegaly involving the liver, spleen or adrenal glands. The possibility of a pancreatic mass within the body/tail is not excluded. MRI of the pancreas is rec ommended for further evaluation. There is no retroperitoneal adenopathy or hemorrhage in the caliber the abdominal aorta is normal. There is no solid renal mass or hydronephrosis. The bowel loops are normal in caliber and there is no dilatation or obstruction. There is no free int raperitoneal air or fluid. There is no pelvic mass, free fluid, abscess or adenopathy. The osseous structures are intact IMPRESSION: Cannot exclude pancreatic mass. Evaluation of the pancreas is limited due to the adjacent stomach and bowel loops which are nonopacified. Recommend repeat CT the abdomen with oral contrast or MRI of the pancreas to further evaluate for pancreatic mass.
[2023-05-23] MEDS: methylPREDNISolone SOD SUCCI 125 MG/2 ML VIAL IV SCH ×4 (05:16→23:46)
[2023-05-23] MEDS: IPRATROPIUM-ALBUTEROL 3 ML NEB INHALATION SCH ×4 (07:37→18:00)
[2023-05-23] MEDS: SYMBICORT 160-4.5 MCG INHALER INHALATION SCH ×2 (07:37→18:01)
[2023-05-23] MEDS: HYDROcodone/APAP 10-325MG 1 EACH TAB PO SCH (08:21)
[2023-05-23] MEDS: DOXYCYCLINE 100 MG CAP PO SCH ×2 (08:21→19:49)
[2023-05-23] MEDS: ALPRAZolam 1 MG TAB PO SCH ×2 (08:21→19:49)
[2023-05-23] MEDS: ENOXAPARIN 40 MG/0.4 ML SYRINGE SQ SCH (08:21)
[2023-05-23] MEDS ORDERED: HYDROmorphone 1 MG/ML 1 ML SYRINGE IVP STA (13:17)
--- NOTE | 2023-05-23 13:55 | P.PN ---
Subjective Progress Note Date: 05/23/23 Hospital Course: 62-year-old female with a PMH of COPD with chronic hypoxic respiratory failure on 2.5 L nighttime supplemental oxygen who presents to the emergency room with complaints of shortness of breath, wheezing, and nonproductive cough. In the emergency room EKG revealed sinus rhythm at 86 bpm with inferior lead Q waves with no ST/T-wave changes noted as reviewed by me. Chest x-ray revealed findings consistent with COPD with no acute abnormalities as reviewed by me. Laboratory evaluation was reviewed and revealed WBC count 8.2, troponin less than 0.012, proBNP 92, with influenza, RSV, and COVID-19 testing negative. SpO2 in the emergency room upon arrival was 98% on 4 L nasal cannula oxygen. Patient admitted for COPD exacerbation. Pulmonology also consulted. Currently on b ronchodilators and IV steroids. CTA chest was negative for PE but did show pancreatic fullness which was not completely visualize. Subsequent CT abdomen and pelvis could not exclude pancreatic mass, recommended CT abdomen with oral contrast or MRI of the pancreas. Subjective: Patient seen and examined at bedside. No acute events overnight. Still having significant shortness of breath but improving. Still having some abdominal pain. She claims that she's been taking 800 mg Motrin twice a day. Pertinent positives and negatives as discussed above, a complete review of systems was performed and all other systems are negative. Vitals Signs Reviewed. General: nontoxic, no distress, appears at stated age Derm: warm, dry Head: atraumatic, normocephalic, symmetric Eyes: EOMI, no lid lag, anicteric sclera Mouth: no lip lesion, mucus membranes moist Cardiovascular: S1S2 reg, no murmur Lungs: Bilateral inspiratory and expiratory wheezing , supplemental oxygen Abdominal: soft, nontender to palpation, no guarding, no appreciable organomegaly Ext: no gross muscle atrophy, no edema, no contractures Neuro: CN II-XI grossly intact, no focal neuro deficits Psych: Alert, oriented, appropriate affect Data Reviewed Today: Pertinent Labs: No new labs Imaging: CT abdomen and pelvis unable to exclude pancreatic mass Assessment and Plan: Patient remains critically ill. Active: COPD with acute severe exacerbation Acute on chronic hypoxic respiratory failure Anxiety -Pulmonology following, continue current therapy -Currently on IV Solu-Medrol 60 mg every 6 hours, monitor mental status -On oral Xanax 1 mg twice a day, monitor for respiratory depression -Continue bronchodilators and doxycycline 100 mg twice a day -Keep on telemetry -Patient has end-stage COPD requiring oxygen at home, had a discussion with regards to outpatient palliative care, patient would like to use Her referral to outpatient palliative Abdominal pain, epigastric Gastritis, likely NSAID use related -CT abdomen and pelvis unable to visualize pancreatic tail -Recommending repeat CT abdomen with oral contrast or MRI -Started on Protonix 40 mg IV daily -CT abdomen with oral contrast ordered DVT ppx: Lovenox Code status: Full code Anticipated discharge place: Pending clinical course Anticipated discharge time: Pending clinical course Objective - Vital Signs Vital signs: Vital Signs Temp 97.6 F 05/23/23 06:53 Pulse 75 05/23/23 12:04 Resp 16 05/23/23 08:22 BP 143/75 05/23/23 06:53 Pulse Ox 97 05/23/23 06:53 FiO2 Intake & Output 05/22/23 05/23/23 05/23/23 18:59 06:59 18:59 Intake Total 1080 Balance 1080 Intake: Oral 1080 Other: Voiding Method Toilet Toilet Toilet # Voids 2 2 - Labs CBC & Chem 7: 05/21/23 07:09 05/21/23 07:09
--- NOTE | 2023-05-23 15:11 | P.PN ---
Subjective Progress Note Date: 05/23/23 This is a pleasant 63-year-old female patient with a known history of anxiety, marijuana use, former smoker with severe chronic obstructive pulmonary disease who follows with Dr. Swanson in our office. He presented to the emergency room yesterday with a 2-3 day history of increasing shortness of breath, cough and congestion. Chest x-ray revealed evidence of COPD but no acute pulmonary process. White count 8.4. Hemoglobin 13.2. Platelets 197. Sodium 139. Potassium 4.2. Bicarb 25. BUN 13. Creatinine 0.7. Glucose 176. Influenza screen negative, RSV screen negative, COVID-19 screen negative. She is seen today in consultation in the emergency department. Currently sitting up in a stretcher. She is dyspneic with conversation. Dyspneic with minimal exertion. Maintaining O2 saturations in the 90s on 3 L/m per nasal cannula. Afebrile. Hemodynamically stable. The patient is seen today 05/22/2023 in follow-up on the regular medical floor. She is currently awake and alert in no acute distress. She is continuing to maintain good O2 saturation in the 90s on 3 L/m per nasal cannula. Afebrile. Hemodynamically stable. CT angiogram revealed no evidence of pulmonary embolism. Lung longoria were clear and free of infiltrate. No atelectasis. No pleural effusion. She is continued on DuoNeb inhalations, Symbicort, Solu- Medrol. Empiric antibiotics in the form of doxycycline. Lovenox for DVT prophylaxis. The patient is seen today 05/23/2023 in follow-up on the regular medical floor. She is currently sitting up in bed. Awake and alert in no acute distress. She is breathing easier today. She is maintaining O2 saturations in the 90s on 3 L/m per nasal cannula. CT angiogram ruled out pulmonary embolism. Computed tomography scan of the abdomen and pelvis revealed inconclusive regarding a pancreatic mass. There was limited due to adjacent stomach and bowel loops which are not opacified. Recommended MRI of the pancreas. She is continued on DuoNeb inhalations, Symbicort, Solu-Medrol. Empiric antibiotics in the form of doxycycline. Lovenox for DVT prophylaxis. Objective - Vital Signs Vital signs: Vital Signs Temp 97.7 F 05/23/23 13:43 Pulse 76 05/23/23 14:43 Resp 18 05/23/23 13:43 BP 126/70 05/23/23 13:43 Pulse Ox 94 L 05/23/23 13:43 FiO2 Intake & Output 05/22/23 05/23/23 05/23/23 18:59 06:59 18:59 Intake Total 1080 Balance 1080 Intake: Oral 1080 Other: Voiding Method Toilet Toilet Toilet # Voids 2 2 - Exam GENERAL EXAM: Alert, pleasant 63-year-old female, sitting up in bed, on 3 L na neno cannula, comfortable in no apparent distress. HEAD: Normocephalic. EYES: Normal reaction of pupils, equal size. NOSE: Clear with pink turbinates. THROAT: No erythema or exudates. NECK: No masses, no JVD. CHEST: No chest wall deformity. LUNGS: Equal air entry with bilateral end expiratory wheeze, diminished throughout. CVS: S1 and S2 normal with no audible murmur, regular rhythm. ABDOMEN: No hepatosplenomegaly, normal bowel sounds, no guarding or rigidity. SPINE: No scoliosis or deformity SKIN: No rashes CENTRAL NERVOUS SYSTEM: No focal deficits, tone is normal in all 4 extremities. EXTREMITIES: There is no peripheral edema. No clubbing, no cyanosis. Peripheral pulses are intact. - Labs CBC & Chem 7: 05/21/23 07:09 05/21/23 07:09 Assessment and Plan Assessment: Acute exacerbation of chronic obstructive pulmonary disease Acute on chronic hypoxemic respiratory failure secondary to above History of chronic tobacco dependence, quit earlier this year History of anxiety History of marijuana use Possible pancreatic mass Plan: The patient was seen and evaluated CT abdomen and pelvis reviewed May need MRI of the pancreas Medications reviewed Continue the current treatment plan Titrate the FiO2 as tolerated Increase her activity as tolerated We will continue to follow I have personally seen and examined the patient, performed the documentation and the assessment and plan as written. Number of minutes spent on the visit: 10.
[2023-05-23] MEDS: PANTOPRAZOLE 40 MG/10 ML VIAL IVP SCH (16:18)
[2023-05-23] MEDS ORDERED: HYDROcodone/APAP 10-325MG 1 EACH TAB PO SCH (18:00)
[2023-05-23] MEDS: HYDROcodone/APAP 10-325MG 1 EACH TAB PO PRN (21:19)
[2023-05-23] MEDS ORDERED: MORPHINE SULFATE 4 MG/ML SYRINGE IVP STA (23:47)
[2023-05-24] MEDS: methylPREDNISolone SOD SUCCI 125 MG/2 ML VIAL IV SCH ×4 (05:14→22:17)
[2023-05-24] MEDS: HYDROcodone/APAP 10-325MG 1 EACH TAB PO PRN ×3 (05:15→17:13)
[2023-05-24] MEDS: SYMBICORT 160-4.5 MCG INHALER INHALATION SCH (07:37)
[2023-05-24] MEDS: IPRATROPIUM-ALBUTEROL 3 ML NEB INHALATION SCH ×4 (07:37→19:58)
[2023-05-24] MEDS: DOXYCYCLINE 100 MG CAP PO SCH ×2 (07:42→21:31)
[2023-05-24] MEDS: ALPRAZolam 1 MG TAB PO SCH ×2 (07:42→21:30)
[2023-05-24] MEDS: PANTOPRAZOLE 40 MG/10 ML VIAL IVP SCH (07:42)
[2023-05-24] MEDS: ENOXAPARIN 40 MG/0.4 ML SYRINGE SQ SCH (07:42)
[2023-05-24] MEDS ORDERED: IOPAMIDOL CONTRAST (ORAL USE) VIAL PO PRN (07:59)
[2023-05-24] MEDS: MORPHINE SULFATE 4 MG/ML SYRINGE IVP PRN ×3 (10:34→22:18)
--- NOTE | 2023-05-24 13:23 | P.PN ---
Subjective Progress Note Date: 05/24/23 Hospital Course: 62-year-old female with a PMH of COPD with chronic hypoxic respiratory failure on 2.5 L nighttime supplemental oxygen who presents to the emergency room with complaints of shortness of breath, wheezing, and nonproductive cough. In the emergency room EKG revealed sinus rhythm at 86 bpm with inferior lead Q waves with no ST/T-wave changes noted as reviewed by me. Chest x-ray revealed findings consistent with COPD with no acute abnormalities as reviewed by me. Laboratory evaluation was reviewed and revealed WBC count 8.2, troponin less than 0.012, proBNP 92, with influenza, RSV, and COVID-19 testing negative. SpO2 in the emergency room upon arrival was 98% on 4 L nasal cannula oxygen. Patient admitted for COPD exacerbation. Pulmonology also consulted. Currently on bronchodilators and IV steroids. CTA chest was negative for PE but did show pancreatic fullness which was not completely visualize. Subsequent CT abdomen and pelvis could not exclude pancreatic mass, recommended CT abdomen with oral contrast or MRI of the pancreas. Pancreatic MRI pending. Subjective: Patient seen and examined at bedside. No acute events overnight. Still having significant shortness of breath. Still having some epigastric abdominal pain that wraps around her left lower chest. It is burning in nature. Denies any recent rashes. Pertinent positives and negatives as discussed above, a complete review of systems was performed and all other systems are negative. Vitals Signs Reviewed. General: nontoxic, no distress, appears at stated age Derm: warm, dry Head: atraumatic, normocephalic, symmetric Eyes: EOMI, no lid lag, anicteric sclera Mouth: no lip lesion, mucus membranes moist Cardiovascular: S1S2 reg, no murmur Lungs: Bilateral inspiratory and expiratory wheezing , supplemental oxygen Abdominal: soft, nontender to palpation, no guarding, no appreciable organomegaly Ext: no gross muscle atrophy, no edema, no contractures Neuro: CN II-XI grossly intact, no focal neuro deficits Psych: Alert, oriented, appropriate affect Data Reviewed Today: Pertinent Labs: No new labs Imaging: MRI of the pancreas pending, will be reviewed when available Assessment and Plan: Patient remains critically ill. Active: COPD with acute severe exacerbation Acute on chronic hypoxic respiratory failure Anxiety Suspected vocal cord dysfunction -Pulmonology following, continue current therapy -Currently on IV Solu-Medrol 60 mg every 6 hours, monitor mental status -On oral Xanax 1 mg twice a day, monitor for respiratory depression -Continue bronchodilators and doxycycline 100 mg twice a day -Keep on telemetry -Patient has end-stage COPD requiring oxygen at home, had a discussion with regards to outpatient palliative care, which patient agrees with -She has a lot of upper respiratory noise, wondering if she has vocal cord dysfunction, if no improvement, will consider ENT evaluation Abdominal pain, epigastric Gastritis, likely NSAID use related -CT abdomen and pelvis unable to visualize pancreatic tail -Recommending repeat CT abdomen with oral contrast or MRI -MRI pancreas pending -Started on Protonix 40 mg IV daily -On morphine 4 mg IV every 6 hours as needed for severe breakthrough pain, monitor respiratory depression DVT ppx: Lovenox Code status: Full code Anticipated discharge place: Pending clinical course Anticipated discharge time: Pending clinical course Objective - Vital Signs Vital signs: Vital Signs Temp 97.6 F 05/24/23 06:58 Pulse 82 05/24/23 11:43 Resp 19 05/24/23 06:58 BP 161/64 05/24/23 06:58 Pulse Ox 96 05/24/23 07:38 FiO2 Intake & Output 05/23/23 05/24/23 05/24/23 18:59 06:59 18:59 Intake Total 1080 Balance 1080 Intake: Oral 1080 Other: Voiding Method Toilet Toilet # Voids 4 2 # Bowel Movements 1 - Labs CBC & Chem 7: 05/21/23 07:09 05/21/23 07:09
--- NOTE | 2023-05-24 14:52 | P.PN ---
Subjective Progress Note Date: 05/24/23 This is a pleasant 63-year-old female patient with a known history of anxiety, marijuana use, former smoker with severe chronic obstructive pulmonary disease who follows with Dr. Swanson in our office. He presented to the emergency room yesterday with a 2-3 day history of increasing shortness of breath, cough and congestion. Chest x-ray revealed evidence of COPD but no acute pulmonary process. White count 8.4. Hemoglobin 13.2. Platelets 197. Sodium 139. Potassium 4.2. Bicarb 25. BUN 13. Creatinine 0.7. Glucose 176. Influenza screen negative, RSV screen negative, COVID-19 screen negative. She is seen today in consultation in the emergency department. Currently sitting up in a stretcher. She is dyspneic with conversation. Dyspneic with minimal exertion. Maintaining O2 saturations in the 90s on 3 L/m per nasal cannula. Afebrile. Hemodynamically stable. The patient is seen today 05/22/2023 in follow-up on the regular medical floor. She is currently awake and alert in no acute distress. She is continuing to maintain good O2 saturation in the 90s on 3 L/m per nasal cannula. Afebrile. Hemodynamically stable. CT angiogram revealed no evidence of pulmonary embolism. Lung longoria were clear and free of infiltrate. No atelectasis. No pleural effusion. She is continued on DuoNeb inhalations, Symbicort, Solu- Medrol. Empiric antibiotics in the form of doxycycline. Lovenox for DVT prophylaxis. The patient is seen today 05/23/2023 in follow-up on the regular medical floor. She is currently sitting up in bed. Awake and alert in no acute distress. She is breathing easier today. She is maintaining O2 saturations in the 90s on 3 L/m per nasal cannula. CT angiogram ruled out pulmonary embolism. Computed tomography scan of the abdomen and pelvis revealed inconclusive regarding a pancreatic mass. There was limited due to adjacent stomach and bowel loops which are not opacified. Recommended MRI of the pancreas. She is continued on DuoNeb inhalations, Symbicort, Solu-Medrol. Empiric antibiotics in the form of doxycycline. Lovenox for DVT prophylaxis. The patient is seen today 05/24/2023 in follow-up on the regular medical floor. She is currently sitting up in bed. Awake and alert in no acute distress. She is somewhat anxious. She is still wheezing. Dyspneic with conversation. Dyspneic with minimal exertion. Maintaining O2 saturations in the 90s on 3 L/m per nasal cannula. She is continued on DuoNeb inhalations, Pulmicort and Perforomist inhalations, Solu-Medrol. Empiric antibiotics in the form of Vibramycin. Lovenox for DVT prophylaxis. Awaiting MRI of the abdomen. Objective - Vital Signs Vital signs: Vital Signs Temp 97.9 F 05/24/23 12:22 Pulse 81 05/24/23 12:22 Resp 17 05/24/23 12:22 BP 146/72 05/24/23 12:22 Pulse Ox 96 05/24/23 12:22 FiO2 Intake & Output 05/23/23 05/24/23 05/24/23 18:59 06:59 18:59 Intake Total 1080 Balance 1080 Intake: Oral 1080 Other: Voiding Method Toilet Toilet # Voids 4 2 # Bowel Movements 1 - Exam GENERAL EXAM: Alert, anxious 63-year-old female, sitting up in bed, on 3 L nasal cannula, fairly comfortable in no apparent distress. HEAD: Normocephalic. EYES: Normal reaction of pupils, equal size. NOSE: Clear with pink turbinates. THROAT: No erythema or exudates. NECK: No masses, no JVD. CHEST: No chest wall deformity. LUNGS: Equal air entry with bilateral end expiratory wheeze, diminished throughout. CVS: S1 and S2 normal with no audible murmur, regular rhythm. ABDOMEN: No hepatosplenomegaly, normal bowel sounds, no guarding or rigidity. SPINE: No scoliosis or deformity SKIN: No rashes CENTRAL NERVOUS SYSTEM: No focal deficits, tone is normal in all 4 extremities. EXTREMITIES: There is no peripheral edema. No clubbing, no cyanosis. Peripheral pulses are intact. - Labs CBC & Chem 7: 05/21/23 07:09 05/21/23 07:09 Assessment and Plan Assessment: Acute exacerbation of chronic obstructive pulmonary disease Acute on chronic hypoxemic respiratory failure secondary to above History of chronic tobacco dependence, quit earlier this year History of anxiety History of marijuana use Possible pancreatic mass and MRI is pending Plan: The patient was seen and evaluated Medications reviewed Continue the current treatment plan Awaiting MRI of the pancreas Titrate the FiO2 as tolerated Increase her activity as tolerated We will continue to follow I have personally seen and examined the patient, performed the documentation and the assessment and plan as written. Number of minutes spent on the visit: 10.
[2023-05-24] MEDS: FORMOTEROL FUMARATE 20 MCG/2 ML NEBU INHALATION SCH (19:58)
[2023-05-24] MEDS: BUDESONIDE 1 MG/2 ML NEBU INHALATION SCH (19:58)
[2023-05-25] MEDS: HYDROcodone/APAP 10-325MG 1 EACH TAB PO PRN ×3 (01:28→17:37)
[2023-05-25] MEDS: IPRATROPIUM-ALBUTEROL 3 ML NEB INHALATION PRN (03:44)
[2023-05-25] MEDS: MORPHINE SULFATE 4 MG/ML SYRINGE IVP PRN ×4 (04:01→22:22)
[2023-05-25] MEDS: methylPREDNISolone SOD SUCCI 125 MG/2 ML VIAL IV SCH ×3 (06:49→17:38)
[2023-05-25] MEDS: PANTOPRAZOLE 40 MG/10 ML VIAL IVP SCH (07:41)
[2023-05-25] MEDS: DOXYCYCLINE 100 MG CAP PO SCH ×2 (07:41→22:23)
[2023-05-25] MEDS: ENOXAPARIN 40 MG/0.4 ML SYRINGE SQ SCH (07:41)
[2023-05-25] MEDS: ALPRAZolam 1 MG TAB PO SCH ×2 (07:41→22:23)
[2023-05-25] MEDS: FORMOTEROL FUMARATE 20 MCG/2 ML NEBU INHALATION SCH ×2 (09:01→21:05)
[2023-05-25] MEDS: BUDESONIDE 1 MG/2 ML NEBU INHALATION SCH ×2 (09:01→21:05)
[2023-05-25] MEDS: IPRATROPIUM-ALBUTEROL 3 ML NEB INHALATION SCH ×4 (09:01→21:05)
--- NOTE | 2023-05-25 13:25 | P.PN ---
Subjective Progress Note Date: 05/25/23 Principal diagnosis: Shortness of breath. This is a pleasant 63-year-old female patient with a known history of anxiety, marijuana use, former smoker with severe chronic obstructive pulmonary disease who follows with Dr. Swanson in our office. He presented to the emergency room y esterday with a 2-3 day history of increasing shortness of breath, cough and congestion. Chest x-ray revealed evidence of COPD but no acute pulmonary process. White count 8.4. Hemoglobin 13.2. Platelets 197. Sodium 139. Potassium 4.2. Bicarb 25. BUN 13. Creatinine 0.7. Glucose 176. Influenza screen negative, RSV screen negative, COVID-19 screen negative. She is seen today in consultation in the emergency department. Currently sitting up in a stretcher. She is dyspneic with conversation. Dyspneic with minimal exertion. Maintaining O2 saturations in the 90s on 3 L/m per nasal cannula. Afebrile. Hemodynamically stable. The patient is seen today 05/22/2023 in follow-up on the regular medical floor. She is currently awake and alert in no acute distress. She is continuing to maintain good O2 saturation in the 90s on 3 L/m per nasal cannula. Afebrile. Hemodynamically stable. CT angiogram revealed no evidence of pulmonary embolism. Lung longoria were clear and free of infiltrate. No atelectasis. No pleural effusion. She is continued on DuoNeb inhalations, Symbicort, Solu- Medrol. Empiric antibiotics in the form of doxycycline. Lovenox for DVT prophylaxis. The patient is seen today 05/23/2023 in follow-up on the regular medical floor. She is currently sitting up in bed. Awake and alert in no acute distress. She is breathing easier today. She is maintaining O2 saturations in the 90s on 3 L/m per nasal cannula. CT angiogram ruled out pulmonary embolism. Computed tomography scan of the abdomen and pelvis revealed inconclusive regarding a pancreatic mass. There was limited due to adjacent stomach and bowel loops which are not opacified. Recommended MRI of the pancreas. She is continued on DuoNeb inhalations, Symbicort, Solu-Medrol. Empiric antibiotics in the form of doxycycline. Lovenox for DVT prophylaxis. The patient is seen today 05/24/2023 in follow-up on the regular medical floor. She is currently sitting up in bed. Awake and alert in no acute distress. She is somewhat anxious. She is still wheezing. Dyspneic with conversation. Dyspneic with minimal exertion. Maintaining O2 saturations in the 90s on 3 L/m per nasal cannula. She is continued on DuoNeb inhalations, Pulmicort and Perforomist inhalations, Solu-Medrol. Empiric antibiotics in the form of Vibramycin. Lovenox for DVT prophylaxis. Awaiting MRI of the abdomen. Progress note dated 05/25/2023. The patient is seen today, in room 451. The patient continues on oxygen at 3 L. She states that she is not any better. She's not receiving any IV fluids today we talk about bronchoscopy, and BAL, if she does not improve. It can be done either tomorrow or the following day. No new labs today. The patient is scheduled for MRI of the pancreas today. Objective - Vital Signs Vital signs: Vital Signs Temp 97.8 F 05/25/23 06:57 Pulse 80 05/25/23 12:14 Resp 18 05/25/23 06:57 BP 160/72 05/25/23 06:57 Pulse Ox 97 05/25/23 09:01 FiO2 Intake & Output 05/24/23 05/25/23 05/25/23 18:59 06:59 18:59 Other: # Voids 4 1 - Exam No acute distress, oriented 3. The patient's currently on 3 L oxygen. No use of accessory muscles, or conversational dyspnea. HEENT examination is grossly unremarkable. Mucous membranes are moist. No oral lesions. Neck supple. Full range of motion. No adenopathy thyromegaly or neck vein distention. Cardiovascular examination reveals regular rhythm rate. S1-S2 normal. No S3 or S4. No discernible murmur noted. Heart sounds are distant. Heart rate 80 bpm. Lungs reveal coarse bilateral inspiratory and expiratory wheezes and rhonchi. The patient is quite bronchospastic. She is no better today than she was yesterday. No crackles. Abdomen soft bowel sounds are heard. No masses or tenderness. Extremities are intact. No cyanosis clubbing or edema. Skin is without rash or lesion. Neurologic examination is brief but nonfocal. - Labs CBC & Chem 7: 05/21/23 07:09 05/21/23 07:09 Assessment and Plan Assessment: Acute exacerbation of chronic obstructive pulmonary disease. Acute on chronic hypoxemic respiratory failure, secondary to above. History of chronic tobacco dependence, quit earlier this year. History of anxiety. History of marijuana use. Possible pancreatic mass and MRI is pending. Plan: Plan dated 05/25/2023. Despite excellent medications, the patient still quite bronchospastic, and really doesn't feel much better. I told her today, that if she is not any better by tomorrow, we will consider doing bronchoscopy, airway examination, therapeutic lavage, and BAL. She continues on steroids, and bronchodilators. She did have her pancreatic MRI today. The results are not yet on the chart. Additional recommendations and suggestions are forthcoming. Labs, x-rays, and medications are reviewed. Prognosis is guarded. Time with Patient: Less than 30
--- NOTE | 2023-05-25 15:36 | P.PN ---
Subjective Progress Note Date: 05/25/23 Hospital Course: 62-year-old female with a PMH of COPD with chronic hypoxic respiratory failure on 2.5 L nighttime supplemental oxygen who presents to the emergency room with complaints of shortness of breath, wheezing, and nonproductive cough. In the emergency room EKG revealed sinus rhythm at 86 bpm with inferior lead Q waves with no ST/T-wave changes noted as reviewed by me. Chest x-ray revealed findings consistent with COPD with no acute abnormalities as reviewed by me. Laboratory evaluation was reviewed and revealed WBC count 8.2, troponin less than 0.012, proBNP 92, with influenza, RSV, and COVID-19 testing negative. SpO2 in the emergency room upon arrival was 98% on 4 L nasal cannula oxygen. Patient admitted for COPD exacerbation. Pulmonology also consulted. Currently on bronchodilators and IV steroids. CTA chest was negative for PE but did show pancreatic fullness which was not completely visualize. Subsequent CT abdomen and pelvis could not exclude pancreatic mass, recommended CT abdomen with oral contrast or MRI of the pancreas. Pancreatic MRI pending. Subjective: Patient seen and examined at bedside. No acute events overnight. Still having significant shortness of breath. Still having some epigastric abdominal pain that wraps around her left lower chest. It is burning in nature. Denies any recent rashes. Pertinent positives and negatives as discussed above, a complete review of systems was performed and all other systems are negative. Vitals Signs Reviewed. General: nontoxic, no distress, appears at stated age Derm: warm, dry Head: atraumatic, normocephalic, symmetric Eyes: EOMI, no lid lag, anicteric sclera Mouth: no lip lesion, mucus membranes moist Cardiovascular: S1S2 reg, no murmur Lungs: Bilateral inspiratory and expiratory wheezing , supplemental oxygen Abdominal: soft, nontender to palpation, no guarding, no appreciable organomegaly Ext: no gross muscle atrophy, no edema, no contractures Neuro: CN II-XI grossly intact, no focal neuro deficits Psych: Alert, oriented, appropriate affect Data Reviewed Today: Pertinent Labs: No new labs Imaging: MRI of the pancreas pending, will be reviewed when available Assessment and Plan: Patient remains critically ill. Active: COPD with acute severe exacerbation Acute on chronic hypoxic respiratory failure Anxiety -Pulmonology note reviewed, may need bronchoscopy tomorrow -Currently on IV Solu-Medrol 60 mg every 6 hours, monitor mental status -On oral Xanax 1 mg twice a day, monitor for respiratory depression -Continue bronchodilators and doxycycline 100 mg twice a day -Keep on telemetry -Patient has end-stage COPD requiring oxygen at home, had a discussion with regards to outpatient palliative care, which patient agrees with -She has a lot of upper respiratory noise, wondering if she has vocal cord dysfunction, if no improvement, will consider ENT evaluation Abdominal pain, epigastric Gastritis, likely NSAID use related -CT abdomen and pelvis unable to visualize pancreatic tail -Recommending repeat CT abdomen with oral contrast or MRI -MRI pancreas pending -Started on Protonix 40 mg IV daily -On morphine 4 mg IV every 6 hours as needed for severe breakthrough pain, monitor respiratory depression DVT ppx: Lovenox Code status: Full code Anticipated discharge place: Pending clinical course Anticipated discharge time: Pending clinical course Objective - Vital Signs Vital signs: Vital Signs Temp 97.9 F 05/25/23 14:34 Pulse 73 05/25/23 14:34 Resp 22 05/25/23 14:34 BP 145/77 05/25/23 14:34 Pulse Ox 96 05/25/23 14:34 FiO2 Intake & Output 05/24/23 05/25/23 05/25/23 18:59 06:59 18:59 Other: # Voids 4 1 - Labs CBC & Chem 7: 05/21/23 07:09 05/21/23 07:09
--- NOTE | 2023-05-25 21:15 | MR ---
EXAMINATION TYPE: MR pancreas wo/w con DATE OF EXAM: 05/25/2023 1:09 PM CLINICAL INDICATION:Female, 63 years old with history of pancreatic mass?; PHH, JULIA, abnormal CT. COMPARISON: CT scan abdomen from CT 05/22/2023. TECHNIQUE: Multiplanar multi-sequence imaging was performed without contrast. Post contrast imaging was performed. Post IV contrast subtraction images were also submitted for review. IV Contrast: 7.5 cc Gadavist FINDINGS: LOWER CHEST: No gross irregularity. ABDOMEN Liver: No evidence for hepatic steatosis or cirrhosis. Signal dropout on chemical shift in phase imag ing. Gallbladder and Bile ducts: No evidence for ductal dilation, or biliary stricture or evidence of chol edocholithiasis. The gallbladder is within normal limits. Pancreas: No ductal dilation. No evidence for solid mass. No evidence for mass. Multiple small bowel are seen in the left upper quadrant. Spleen: Normal for size. Signal dropout on chemical shift in phase imaging. Adrenal glands: Unremarkable. Kidneys: No evidence for obstructive uropathy. No suspicious renal masses. Stomach and Bowel: No evidence for bowel wall thickening or evidence for obstruction.. Peritoneum: No evidence of pneumoperitoneum or free fluid. Vasculature: No aortic aneurysm. Musculoskeletal: The osseous structures appear intact. Lymph Nodes: No gross evidence for lymphadenopathy. Abdominal wall: Unremarkable. IMPRESSION: 1. No evidence for pancreatic mass. Finding on prior CTs felt to represent artifact. There are multi ple loops of small bowel up in the left upper quadrant. 2. Iron Deposition within the liver and spleen.
[2023-05-26] MEDS: methylPREDNISolone SOD SUCCI 125 MG/2 ML VIAL IV SCH ×5 (00:08→23:44)
[2023-05-26] MEDS: MORPHINE SULFATE 4 MG/ML SYRINGE IVP PRN ×4 (05:29→23:44)
[2023-05-26] MEDS: IPRATROPIUM-ALBUTEROL 3 ML NEB INHALATION SCH ×4 (06:42→21:38)
[2023-05-26] MEDS: BUDESONIDE 1 MG/2 ML NEBU INHALATION SCH ×2 (06:42→21:38)
[2023-05-26] MEDS: FORMOTEROL FUMARATE 20 MCG/2 ML NEBU INHALATION SCH ×2 (06:42→21:39)
[2023-05-26] MEDS: ENOXAPARIN 40 MG/0.4 ML SYRINGE SQ SCH (09:03)
[2023-05-26] MEDS: DOXYCYCLINE 100 MG CAP PO SCH ×2 (09:03→22:38)
[2023-05-26] MEDS: HYDROcodone/APAP 10-325MG 1 EACH TAB PO PRN ×3 (09:03→22:39)
[2023-05-26] MEDS: ALPRAZolam 1 MG TAB PO SCH ×2 (09:03→22:38)
[2023-05-26] MEDS: PANTOPRAZOLE 40 MG/10 ML VIAL IVP SCH (09:04)
--- NOTE | 2023-05-26 13:33 | P.PN ---
Subjective Progress Note Date: 05/26/23 Hospital Course: 62-year-old female with a PMH of COPD with chronic hypoxic respiratory failure on 2.5 L nighttime supplemental oxygen who presents to the emergency room with complaints of shortness of breath, wheezing, and nonproductive cough. In the emergency room EKG revealed sinus rhythm at 86 bpm with inferior lead Q waves with no ST/T-wave changes noted as reviewed by me. Chest x-ray revealed findings consistent with COPD with no acute abnormalities as reviewed by me. Laboratory evaluation was reviewed and revealed WBC count 8.2, troponin less than 0.012, proBNP 92, with influenza, RSV, and COVID-19 testing negative. SpO2 in the emergency room upon arrival was 98% on 4 L nasal cannula oxygen. Patient admitted for COPD exacerbation. Pulmonology also consulted. Currently on b ronchodilators and IV steroids. CTA chest was negative for PE but did show pancreatic fullness which was not completely visualize. Subsequent CT abdomen and pelvis could not exclude pancreatic mass, recommended CT abdomen with oral contrast or MRI of the pancreas. Pancreatic MRI did not show any pancreatic mass. Subjective: Patient seen and examined at bedside. No acute events overnight. Shortness of breath has improved. Abdominal pain also improving. Pertinent positives and negatives as discussed above, a complete review of systems was performed and all other systems are negative. Vitals Signs Reviewed. General: nontoxic, no distress, appears at stated age Derm: warm, dry Head: atraumatic, normocephalic, symmetric Eyes: EOMI, no lid lag, anicteric sclera Mouth: no lip lesion, mucus membranes moist Cardiovascular: S1S2 reg, no murmur Lungs: Bilateral inspiratory and expiratory wheezing , supplemental oxygen Abdominal: soft, nontender to palpation, no guarding, no appreciable organomegaly Ext: no gross muscle atrophy, no edema, no contractures Neuro: CN II-XI grossly intact, no focal neuro deficits Psych: Alert, oriented, appropriate affect Data Reviewed Today: Vital signs reviewed, patient remains on 3 L saturating at 95% Pertinent Labs: Pro calcitonin 0.02 Imaging: MRI of the pancreas did not show any mass Assessment and Plan: Active: COPD with acute severe exacerbation, resolving Acute on chronic hypoxic respiratory failure Anxiety -Had a discussion with pulmonology, no need for bronchoscopy, possible discharge tomorrow -Currently on IV Solu-Medrol 60 mg every 6 hours, monitor mental status -On oral Xanax 1 mg twice a day, monitor for respiratory depression -Continue bronchodilators and doxycycline 100 mg twice a day -Keep on telemetry -Patient has end-stage COPD requiring oxygen at home, had a discussion with regards to outpatient palliative care, which patient agrees with Abdominal pain, epigastric Gastritis, likely NSAID use related -CT abdomen and pelvis unable to visualize pancreatic tail -MRI pancreas did not show any mass -Started on Protonix 40 mg IV daily -On morphine 4 mg IV every 6 hours as needed for severe breakthrough pain, monitor respiratory depression DVT ppx: Lovenox Code status: Full code Anticipated discharge place: Home with home care Anticipated discharge time: Likely tomorrow Objective - Vital Signs Vital signs: Vital Signs Temp 98.5 F 05/26/23 08:00 Pulse 74 05/26/23 12:10 Resp 17 05/26/23 08:00 BP 165/80 05/26/23 08:00 Pulse Ox 95 05/26/23 08:00 FiO2 Intake & Output 05/25/23 05/26/23 05/26/23 18:59 06:59 18:59 Intake Total 480 Balance 480 Intake: Oral 480 Other: Voiding Method Toilet Toilet # Voids 2 - Labs CBC & Chem 7: 05/21/23 07:09 05/21/23 07:09
[2023-05-26 14:14] VITALS: BMI 25.8
--- NOTE | 2023-05-26 14:57 | P.PN ---
Subjective Progress Note Date: 05/26/23 Principal diagnosis: Shortness of breath. This is a pleasant 63-year-old female patient with a known history of anxiety, marijuana use, former smoker with severe chronic obstructive pulmonary disease who follows with Dr. Swanson in our office. He presented to the emergency room y esterday with a 2-3 day history of increasing shortness of breath, cough and congestion. Chest x-ray revealed evidence of COPD but no acute pulmonary process. White count 8.4. Hemoglobin 13.2. Platelets 197. Sodium 139. Potassium 4.2. Bicarb 25. BUN 13. Creatinine 0.7. Glucose 176. Influenza screen negative, RSV screen negative, COVID-19 screen negative. She is seen today in consultation in the emergency department. Currently sitting up in a stretcher. She is dyspneic with conversation. Dyspneic with minimal exertion. Maintaining O2 saturations in the 90s on 3 L/m per nasal cannula. Afebrile. Hemodynamically stable. The patient is seen today 05/22/2023 in follow-up on the regular medical floor. She is currently awake and alert in no acute distress. She is continuing to maintain good O2 saturation in the 90s on 3 L/m per nasal cannula. Afebrile. Hemodynamically stable. CT angiogram revealed no evidence of pulmonary embolism. Lung longoria were clear and free of infiltrate. No atelectasis. No pleural effusion. She is continued on DuoNeb inhalations, Symbicort, Solu- Medrol. Empiric antibiotics in the form of doxycycline. Lovenox for DVT prophylaxis. The patient is seen today 05/23/2023 in follow-up on the regular medical floor. She is currently sitting up in bed. Awake and alert in no acute distress. She is breathing easier today. She is maintaining O2 saturations in the 90s on 3 L/m per nasal cannula. CT angiogram ruled out pulmonary embolism. Computed tomography scan of the abdomen and pelvis revealed inconclusive regarding a pancreatic mass. There was limited due to adjacent stomach and bowel loops which are not opacified. Recommended MRI of the pancreas. She is continued on DuoNeb inhalations, Symbicort, Solu-Medrol. Empiric antibiotics in the form of doxycycline. Lovenox for DVT prophylaxis. The patient is seen today 05/24/2023 in follow-up on the regular medical floor. She is currently sitting up in bed. Awake and alert in no acute distress. She is somewhat anxious. She is still wheezing. Dyspneic with conversation. Dyspneic with minimal exertion. Maintaining O2 saturations in the 90s on 3 L/m per nasal cannula. She is continued on DuoNeb inhalations, Pulmicort and Perforomist inhalations, Solu-Medrol. Empiric antibiotics in the form of Vibramycin. Lovenox for DVT prophylaxis. Awaiting MRI of the abdomen. Progress note dated 05/25/2023. The patient is seen today, in room 451. The patient continues on oxygen at 3 L. She states that she is not any better. She's not receiving any IV fluids today we talk about bronchoscopy, and BAL, if she does not improve. It can be done either tomorrow or the following day. No new labs today. The patient is scheduled for MRI of the pancreas today. Progress note dated 05/26/2023. 63-year-old female who was admitted with a COPD exacerbation, is seen today in room 451. The plan was to ask he think about doing a bronchoscopy on this patient today, but when he walked in the room, the patient was feeling much better. She was sitting upright in the chair. She continues on 3 L of oxygen. No fluids. The patient felt like she didn't really need bronchoscopy at this time. The patient also had an MRI of the pancreas, for suspected pancreatic lesion. Nothing was seen on MRI. No new labs today. The labs from May 21 and have been reviewed. Objective - Vital Signs Vital signs: Vital Signs Temp 98.1 F 05/26/23 13:18 Pulse 82 05/26/23 13:18 Resp 23 05/26/23 13:18 BP 167/76 05/26/23 13:18 Pulse Ox 97 05/26/23 13:18 FiO2 Intake & Output 05/25/23 05/26/23 05/26/23 18:59 06:59 18:59 Intake Total 480 Balance 480 Weight 74.843 kg Intake: Oral 480 Other: Voiding Method Toilet Toilet # Voids 2 - Exam No acute distress, oriented 3. The patient's currently on 3 L oxygen. No use of accessory muscles, or conversational dyspnea. HEENT examination is grossly unremarkable. Mucous membranes are moist. No oral lesions. Neck supple. Full range of motion. No adenopathy thyromegaly or neck vein distention. Cardiovascular examination reveals regular rhythm rate. S1-S2 normal. No S3 or S4. No discernible murmur noted. Heart sounds are distant. Heart rate 82 bpm. Lungs reveal scattered expiratory wheezes and rhonchi. Breath sounds are equal. There is slight prolongation. No crackles. Breath sounds are improved compared to yesterday's exam. 3 L saturation is 97%. Abdomen soft bowel sounds are heard. No masses or tenderness. Extremities are intact. No cyanosis clubbing or edema. Skin is without rash or lesion. Neurologic examination is brief but nonfocal. - Labs CBC & Chem 7: 05/21/23 07:09 05/21/23 07:09 Assessment and Plan Assessment: Acute exacerbation of chronic obstructive pulmonary disease. Acute on chronic hypoxemic respiratory failure, secondary to above. History of chronic tobacco dependence, quit earlier this year. History of anxiety. History of marijuana use. Possible pancreatic mass and MRI is pending. Plan: Plan dated 05/25/2023. Despite excellent medications, the patient still quite bronchospastic, and really doesn't feel much better. I told her today, that if she is not any better by tomorrow, we will consider doing bronchoscopy, airway examination, therapeutic lavage, and BAL. She continues on steroids, and bronchodilators. She did have her pancreatic MRI today. The results are not yet on the chart. Additional recommendations and suggestions are forthcoming. Labs, x-rays, and medications are reviewed. Prognosis is guarded. Plan dated 05/26/2023. The patient is doing well. The patient feels much better. We're planning to do bronchoscopy on this patient today, but, she can now eat. I told her that should she have an issue later this week, we can always do it on Wednesday. She's on appropriate medications including breathing treatments, and steroids. Labs, x-rays, and medications are reviewed. Patient's overall prognosis remains guarded. We will continue to see the patient, make recommendations. Time with Patient: Less than 30
[2023-05-27] MEDS: HYDROcodone/APAP 10-325MG 1 EACH TAB PO PRN ×4 (04:07→23:29)
[2023-05-27] MEDS: MORPHINE SULFATE 4 MG/ML SYRINGE IVP PRN ×3 (06:01→18:50)
[2023-05-27] MEDS: methylPREDNISolone SOD SUCCI 125 MG/2 ML VIAL IV SCH ×4 (06:02→23:29)
[2023-05-27] MEDS: IPRATROPIUM-ALBUTEROL 3 ML NEB INHALATION SCH ×4 (08:03→20:45)
[2023-05-27] MEDS: FORMOTEROL FUMARATE 20 MCG/2 ML NEBU INHALATION SCH ×2 (08:03→20:45)
[2023-05-27] MEDS: BUDESONIDE 1 MG/2 ML NEBU INHALATION SCH ×2 (08:03→20:45)
[2023-05-27] MEDS: DOXYCYCLINE 100 MG CAP PO SCH ×2 (08:45→20:13)
[2023-05-27] MEDS: PANTOPRAZOLE 40 MG/10 ML VIAL IVP SCH (08:45)
[2023-05-27] MEDS: ENOXAPARIN 40 MG/0.4 ML SYRINGE SQ SCH (08:45)
[2023-05-27] MEDS: ALPRAZolam 1 MG TAB PO SCH ×2 (08:45→20:14)
--- NOTE | 2023-05-27 14:38 | P.PN ---
Subjective Progress Note Date: 05/27/23 This is a pleasant 63-year-old female patient with a known history of anxiety, marijuana use, former smoker with severe chronic obstructive pulmonary disease who follows with Dr. Swanson in our office. He presented to the emergency room yesterday with a 2-3 day history of increasing shortness of breath, cough and congestion. Chest x-ray revealed evidence of COPD but no acute pulmonary process. White count 8.4. Hemoglobin 13.2. Platelets 197. Sodium 139. Potassium 4.2. Bicarb 25. BUN 13. Creatinine 0.7. Glucose 176. Influenza screen negative, RSV screen negative, COVID-19 screen negative. She is seen today in consultation in the emergency department. Currently sitting up in a stretcher. She is dyspneic with conversation. Dyspneic with minimal exertion. Maintaining O2 saturations in the 90s on 3 L/m per nasal cannula. Afebrile. Hemodynamically stable. The patient is seen today 05/22/2023 in follow-up on the regular medical floor. She is currently awake and alert in no acute distress. She is continuing to maintain good O2 saturation in the 90s on 3 L/m per nasal cannula. Afebrile. Hemodynamically stable. CT angiogram revealed no evidence of pulmonary embolism. Lung longoria were clear and free of infiltrate. No atelectasis. No pleural effusion. She is continued on DuoNeb inhalations, Symbicort, Solu- Medrol. Empiric antibiotics in the form of doxycycline. Lovenox for DVT prophylaxis. The patient is seen today 05/23/2023 in follow-up on the regular medical floor. She is currently sitting up in bed. Awake and alert in no acute distress. She is breathing easier today. She is maintaining O2 saturations in the 90s on 3 L/m per nasal cannula. CT angiogram ruled out pulmonary embolism. Computed tomography scan of the abdomen and pelvis revealed inconclusive regarding a pancreatic mass. There was limited due to adjacent stomach and bowel loops which are not opacified. Recommended MRI of the pancreas. She is continued on DuoNeb inhalations, Symbicort, Solu-Medrol. Empiric antibiotics in the form of doxycycline. Lovenox for DVT prophylaxis. The patient is seen today 05/24/2023 in follow-up on the regular medical floor. She is currently sitting up in bed. Awake and alert in no acute distress. She is somewhat anxious. She is still wheezing. Dyspneic with conversation. Dyspneic with minimal exertion. Maintaining O2 saturations in the 90s on 3 L/m per nasal cannula. She is continued on DuoNeb inhalations, Pulmicort and Perforomist inhalations, Solu-Medrol. Empiric antibiotics in the form of Vibramycin. Lovenox for DVT prophylaxis. Awaiting MRI of the abdomen. The patient is seen today 05/27/2023 in follow-up on the regular medical floor. She is currently not in the chair at the bedside. Awake and alert in no acute distress. She is more short of breath today compared to yesterday. She is maintaining O2 saturations up to 100% on 4 L/m per nasal cannula. She's afebrile. Hemodynamically stable. Her symptoms have waxed and waned. We'll plan on bronchoscopy with BAL tomorrow. She is continued on DuoNeb inhalations, Pulmicort and Perforomist inhalations, Solu-Medrol. Lovenox for DVT prophylaxis empiric antibiotics in the form of Vibramycin. Objective - Vital Signs Vital signs: Vital Signs Temp 98.7 F 05/27/23 07:10 Pulse 64 05/27/23 11:36 Resp 18 05/27/23 07:10 BP 141/80 05/27/23 07:10 Pulse Ox 99 05/27/23 08:04 FiO2 Intake & Output 05/26/23 05/27/23 05/27/23 18:59 06:59 18:59 Weight 74.843 kg Other: Voiding Method Toilet Toilet # Voids 4 3 - Exam GENERAL EXAM: Alert, anxious 63-year-old female, up in a chair, on 4 L nasal cannula, fairly comfortable in no apparent distress. HEAD: Normocephalic. EYES: Normal reaction of pupils, equal size. NOSE: Clear with pink turbinates. THROAT: No erythema or exudates. NECK: No masses, no JVD. CHEST: No chest wall deformity. LUNGS: Equal air entry with bilateral end expiratory wheeze, diminished throu ghout. CVS: S1 and S2 normal with no audible murmur, regular rhythm. ABDOMEN: No hepatosplenomegaly, normal bowel sounds, no guarding or rigidity. SPINE: No scoliosis or deformity SKIN: No rashes CENTRAL NERVOUS SYSTEM: No focal deficits, tone is normal in all 4 extremities. EXTREMITIES: There is no peripheral edema. No clubbing, no cyanosis. Peripheral pulses are intact. - Labs CBC & Chem 7: 05/21/23 07:09 05/21/23 07:09 Assessment and Plan Assessment: Acute exacerbation of chronic obstructive pulmonary disease Acute on chronic hypoxemic respiratory failure secondary to above History of chronic tobacco dependence, quit earlier this year History of anxiety History of marijuana use Pancreatic mass ruled out by MRI Plan: The patient was seen and evaluated Medications reviewed Continue the current treatment plan Titrate the FiO2 as tolerated She has been slow to progress We'll plan for bronchoscopy with BAL tomorrow We will continue to follow I have personally seen and examined the patient, performed the documentation and the assessment and plan as written. Number of minutes spent on the visit: 10.
--- NOTE | 2023-05-27 16:54 | P.PN ---
Subjective Progress Note Date: 05/27/23 62-year-old female with a PMH of COPD with chronic hypoxic respiratory failure on 2.5 L nighttime supplemental oxygen who presents to the emergency room with complaints of shortness of breath, wheezing, and nonproductive cough. In the emergency room EKG revealed sinus rhythm at 86 bpm with inferior lead Q waves with no ST/T-wave changes noted as reviewed by me. Chest x-ray revealed findings consistent with COPD with no acute abnormalities as reviewed by me. Laboratory evaluation was reviewed and revealed WBC count 8.2, troponin less than 0.012, proBNP 92, with influenza, RSV, and COVID-19 testing negative. SpO2 in the emergency room upon arrival was 98% on 4 L nasal cannula oxygen. Patient admitted for COPD exacerbation. Pulmonology also consulted. Currently on bronchodilators and IV steroids. CTA chest was negative for PE but did show pancreatic fullness which was not completely visualize. Subsequent CT abdomen and pelvis could not exclude pancreatic mass, recommended CT abdomen with oral contrast or MRI of the pancreas. Pancreatic MRI did not show any pancreatic mass. Initially plan was for bronchoscopy with Pulmonology however patient showed clinical improvement on 05/26 and procedure was held. 05/27 Patient was seen and examined. She reports worsening of her breathing. She is schduled for bronchoscopy tomorrow with Dr. Swanson. General: nontoxic, no distress, appears at stated age Derm: warm, dry Head: atraumatic, normocephalic, symmetric Eyes: EOMI, no lid lag, anicteric sclera Cardiovascular: S1S2 reg, no murmur Lungs: Bilateral inspiratory and expiratory wheezing , supplemental oxygen Ext: no gross muscle atrophy, no edema, no contractures Neuro: no focal neuro deficits Psych: Alert, oriented, appropriate affect Based on my assessment of this patient, this patient meets a moderate complexity level of care. Patient has a history of COPD with severe exacerbation or progression of disease which poses a threat to life or bodily function. COPD with acute severe exacerbation: Plans for bronchoscopy tomorrow. DuoNeb scheduled and PRN for SOB/wheezing. Pulmicort INH BID. Doxycycline 100 mg PO BID. Formoterol INH BID. Solumedrol 60 mg IV Q6H. Acute on chronic hypoxic respiratory failure Anxiety: Xanax 1 mg PO BID. Abdominal pain, epigastric Gastritis, likely NSAID use related: Protonix 40 mg IV QD. CODE STATUS: FULL CODE DVT Prophylaxis: Lovenox GI Prophylaxis: Protonix Designated medical POA if patient is not able to make medical decisions for t hemselves: I have reviewed the following mobile sales consultant notes: Puljarret note. I have reviewed the results of the following tests: I have ordered the following tests: I have discussed the care of this patient with the following independent historian: I have independently interpreted the following test below: I have discussed the management of this patient with the following physician: Objective - Vital Signs Vital signs: Vital Signs Temp 98.6 F 05/27/23 13:32 Pulse 76 05/27/23 15:37 Resp 19 05/27/23 13:32 BP 119/69 05/27/23 13:32 Pulse Ox 98 05/27/23 13:32 FiO2 Intake & Output 05/26/23 05/27/23 05/27/23 18:59 06:59 18:59 Weight 74.843 kg Other: Voiding Method Toilet Toilet # Voids 4 3 - Labs CBC & Chem 7: 05/21/23 07:09 05/21/23 07:09
[2023-05-27] MEDS: HYDROmorphone 0.5 MG/0.5 ML SYRINGE IVP PRN (20:59)
[2023-05-28] MEDS: HYDROmorphone 0.5 MG/0.5 ML SYRINGE IVP PRN ×6 (00:11→20:36)
[2023-05-28] MEDS: methylPREDNISolone SOD SUCCI 125 MG/2 ML VIAL IV SCH ×4 (06:37→22:59)
[2023-05-28] MEDS: IPRATROPIUM-ALBUTEROL 3 ML NEB INHALATION SCH ×4 (07:26→19:40)
[2023-05-28] MEDS: FORMOTEROL FUMARATE 20 MCG/2 ML NEBU INHALATION SCH ×2 (07:26→19:40)
[2023-05-28] MEDS: BUDESONIDE 1 MG/2 ML NEBU INHALATION SCH ×2 (07:26→19:40)
[2023-05-28] MEDS: PANTOPRAZOLE 40 MG/10 ML VIAL IVP SCH (10:20)
[2023-05-28] MEDS: DOXYCYCLINE 100 MG CAP PO SCH (10:21)
[2023-05-28] MEDS: ENOXAPARIN 40 MG/0.4 ML SYRINGE SQ SCH (10:21)
[2023-05-28] MEDS: HYDROcodone/APAP 10-325MG 1 EACH TAB PO PRN ×2 (10:26→22:58)
[2023-05-28] MEDS: ALPRAZolam 1 MG TAB PO SCH ×2 (11:20→20:36)
--- NOTE | 2023-05-28 12:17 | P.PN ---
Subjective Progress Note Date: 05/28/23 62-year-old female with a PMH of COPD with chronic hypoxic respiratory failure on 2.5 L nighttime supplemental oxygen who presents to the emergency room with complaints of shortness of breath, wheezing, and nonproductive cough. In the emergency room EKG revealed sinus rhythm at 86 bpm with inferior lead Q waves with no ST/T-wave changes noted as reviewed by me. Chest x-ray revealed findings consistent with COPD with no acute abnormalities as reviewed by me. Laboratory evaluation was reviewed and revealed WBC count 8.2, troponin less than 0.012, proBNP 92, with influenza, RSV, and COVID-19 testing negative. SpO2 in the emergency room upon arrival was 98% on 4 L nasal cannula oxygen. Patient admitted for COPD exacerbation. Pulmonology also consulted. Currently on bronchodilators and IV steroids. CTA chest was negative for PE but did show pancreatic fullness which was not completely visualize. Subsequent CT abdomen and pelvis could not exclude pancreatic mass, recommended CT abdomen with oral contrast or MRI of the pancreas. Pancreatic MRI did not show any pancreatic mass. Initially plan was for bronchoscopy with Pulmonology however patient showed clinical improvement on 05/26 and procedure was held. 05/27 Patient was seen and examined. She reports worsening of her breathing. She is schduled for bronchoscopy tomorrow with Dr. Swanson. 05/28 Patient was seen and examined. Currently on 4L NC. Plans for bronchoscopy today. She is quite anxious. Reports increased pain in the LUQ and chest. General: nontoxic, no distress, appears at stated age Derm: warm, dry Head: atraumatic, normocephalic, symmetric Eyes: EOMI, no lid lag, anicteric sclera Cardiovascular: S1S2 reg, no murmur Lungs: Bilateral inspiratory and expiratory wheezing , supplemental oxygen Ext: no gross muscle atrophy, no edema, no contractures Neuro: no focal neuro deficits Psych: Alert, oriented, appropriate affect Based on my assessment of this patient, this patient meets a moderate complexity level of care. Patient has a history of COPD with severe exacerbation or progression of disease which poses a threat to life or bodily function. COPD with acute severe exacerbation: Plans for bronchoscopy today. DuoNeb scheduled and PRN for SOB/wheezing. Pulmicort INH BID. Doxycycline 100 mg PO BID. Formoterol INH BID. Solumedrol 60 mg IV Q6H. Acute on chronic hypoxic respiratory failure Anxiety: Xanax 1 mg PO BID. Abdominal pain, epigastric Gastritis, likely NSAID use related: Protonix 40 mg IV QD. CODE STATUS: FULL CODE DVT Prophylaxis: Lovenox GI Prophylaxis: Protonix Designated medical POA if patient is not able to make medical decisions for themselves: I have reviewed the following managed security sales consultant notes: Pulm note. I have reviewed the results of the following tests: I have ordered the following tests: I have discussed the care of this patient with the following independent historian: I have independently interpreted the following test below: I have discussed the management of this patient with the following physician: Objective - Vital Signs Vital signs: Vital Signs Temp 98.2 F 05/28/23 09:08 Pulse 66 05/28/23 09:08 Resp 20 05/28/23 09:08 BP 134/79 05/28/23 09:08 Pulse Ox 97 05/28/23 09:08 FiO2 Intake & Output 05/27/23 05/28/23 05/28/23 18:59 06:59 18:59 Other: # Voids 3 2 - Labs CBC & Chem 7: 05/21/23 07:09 05/21/23 07:09
[2023-05-28] MEDS ORDERED: LIDOCAINE 2% INJ 20 MG/ML INTRATRACH ONE ×2 (12:40→13:08)
[2023-05-28] MEDS ORDERED: LIDOCAINE 1% INJ 10MG/ML (20 ML MDV) ONE (13:01)
[2023-05-28] MEDS ORDERED: fentaNYL (PF) 50 MCG/ML 2 ML AMP ONE (13:01)
[2023-05-28] MEDS ORDERED: KETAMINE HCL IN 0.9 % NACL 50 MG/5 ML SYRINGE ONE (13:01)
[2023-05-28] MEDS ORDERED: PROPOFOL 10 MG/ML 20 ML VIAL IV ONE (13:01)
[2023-05-28] MEDS ORDERED: MIDAZOLAM 2 MG/2 ML VIAL ONE (13:01)
[2023-05-28] MEDS ORDERED: LACTATED RINGERS 1,000 ML IV ONE (13:05)
--- NOTE | 2023-05-28 15:42 | P.PN ---
Subjective Progress Note Date: 05/28/23 This is a pleasant 63-year-old female patient with a known history of anxiety, marijuana use, former smoker with severe chronic obstructive pulmonary disease who follows with Dr. Swanson in our office. He presented to the emergency room yesterday with a 2-3 day history of increasing shortness of breath, cough and congestion. Chest x-ray revealed evidence of COPD but no acute pulmonary process. White count 8.4. Hemoglobin 13.2. Platelets 197. Sodium 139. Potassium 4.2. Bicarb 25. BUN 13. Creatinine 0.7. Glucose 176. Influenza screen negative, RSV screen negative, COVID-19 screen negative. She is seen today in consultation in the emergency department. Currently sitting up in a stretcher. She is dyspneic with conversation. Dyspneic with minimal exertion. Maintaining O2 saturations in the 90s on 3 L/m per nasal cannula. Afebrile. Hemodynamically stable. The patient is seen today 05/22/2023 in follow-up on the regular medical floor. She is currently awake and alert in no acute distress. She is continuing to maintain good O2 saturation in the 90s on 3 L/m per nasal cannula. Afebrile. Hemodynamically stable. CT angiogram revealed no evidence of pulmonary embolism. Lung longoria were clear and free of infiltrate. No atelectasis. No pleural effusion. She is continued on DuoNeb inhalations, Symbicort, Solu- Medrol. Empiric antibiotics in the form of doxycycline. Lovenox for DVT prophylaxis. The patient is seen today 05/23/2023 in follow-up on the regular medical floor. She is currently sitting up in bed. Awake and alert in no acute distress. She is breathing easier today. She is maintaining O2 saturations in the 90s on 3 L/m per nasal cannula. CT angiogram ruled out pulmonary embolism. Computed tomography scan of the abdomen and pelvis revealed inconclusive regarding a pancreatic mass. There was limited due to adjacent stomach and bowel loops which are not opacified. Recommended MRI of the pancreas. She is continued on DuoNeb inhalations, Symbicort, Solu-Medrol. Empiric antibiotics in the form of doxycycline. Lovenox for DVT prophylaxis. The patient is seen today 05/24/2023 in follow-up on the regular medical floor. She is currently sitting up in bed. Awake and alert in no acute distress. She is somewhat anxious. She is still wheezing. Dyspneic with conversation. Dyspneic with minimal exertion. Maintaining O2 saturations in the 90s on 3 L/m per nasal cannula. She is continued on DuoNeb inhalations, Pulmicort and Perforomist inhalations, Solu-Medrol. Empiric antibiotics in the form of Vibramycin. Lovenox for DVT prophylaxis. Awaiting MRI of the abdomen. The patient is seen today 05/27/2023 in follow-up on the regular medical floor. She is currently not in the chair at the bedside. Awake and alert in no acute distress. She is more short of breath today compared to yesterday. She is maintaining O2 saturations up to 100% on 4 L/m per nasal cannula. She's afebrile. Hemodynamically stable. Her symptoms have waxed and waned. We'll plan on bronchoscopy with BAL tomorrow. She is continued on DuoNeb inhalations, Pulmicort and Perforomist inhalations, Solu-Medrol. Lovenox for DVT prophylaxis empiric antibiotics in the form of Vibramycin. The patient is seen today 05/28/2023 in follow-up on the regular medical floor. She is sitting up in the bedside. Awake and alert in no acute distress. Maintaining O2 saturations in the 90s on 3 L/m per nasal cannula. Continues with a loose nonproductive cough. Continues with dyspnea on exertion. Dyspnea with conversation. Plan is for bronchoscopy with BAL today. Continued on DuoNeb inhalations, Pulmicort and Perforomist inhalations, Solu-Medrol. Lovenox for DVT prophylaxis. Objective - Vital Signs Vital signs: Vital Signs Temp 98.2 F 05/28/23 09:08 Pulse 64 05/28/23 11:00 Resp 20 05/28/23 09:08 BP 134/79 05/28/23 09:08 Pulse Ox 97 05/28/23 09:08 FiO2 Intake & Output 05/27/23 05/28/23 05/28/23 18:59 06:59 18:59 Intake Total 400 Balance 400 Intake: IV 400 Other: Voiding Method Toilet # Voids 3 2 - Exam GENERAL EXAM: Alert, 63-year-old female, up in a chair, on 3 L nasal cannula, comfortable in no apparent distress. HEAD: Normocephalic. EYES: Normal reaction of pupils, equal size. NOSE: Clear with pink turbinates. THROAT: No erythema or exudates. NECK: No masses, no JVD. CHEST: No chest wall deformity. LUNGS: Equal air entry with bilateral end expiratory wheeze, diminished throughout. CVS: S1 and S2 normal with no audible murmur, regular rhythm. ABDOMEN: No hepatosplenomegaly, normal bowel sounds, no guarding or rigidity. SPINE: No scoliosis or deformity SKIN: No rashes CENTRAL NERVOUS SYSTEM: No focal deficits, tone is normal in all 4 extremities. EXTREMITIES: There is no peripheral edema. No clubbing, no cyanosis. Peripheral pulses are intact. - Labs CBC & Chem 7: 05/21/23 07:09 05/21/23 07:09 Assessment and Plan Assessment: Acute exacerbation of chronic obstructive pulmonary disease Acute on chronic hypoxemic respiratory failure secondary to above History of chronic tobacco dependence, quit earlier this year History of anxiety History of marijuana use Pancreatic mass ruled out by MRI Plan: The patient was seen and evaluated Medications reviewed Continue the current treatment plan Plan is for bronchoscopy with BAL today We will continue to follow I have personally seen and examined the patient, performed the documentation and the assessment and plan as written. Number of minutes spent on the visit: 10.
[2023-05-28] MEDS: IPRATROPIUM-ALBUTEROL 3 ML NEB INHALATION PRN (16:01)
--- NOTE | 2023-05-28 20:25 | PCN ---
PROCEDURE NOTE This is a Pulmonary/Critical Care Procedure. POSTOPERATIVE DIAGNOSES: Bronchoscopy, airway examination, therapeutic lavage, and bronchoalveolar lavage of left lower lobe. PREOPERATIVE DIAGNOSES: 1. Chronic obstructive pulmonary disease exacerbation. 2. Retained secretions. 3. Pneumonia. POSTOPERATIVE DIAGNOSES: 1. Chronic obstructive pulmonary disease exacerbation. 2. Retained secretions. 3. Pneumonia. FIRST MAIL CARRIER: Dr. Constanza Torres. There were informed consent and universal time-out. The patient's procedure took place in room #1 [facility]. ANESTHESIA PROVIDED: General anesthesia. DESCRIPTION OF PROCEDURE: After the patient was adequately sedated and being fully monitored, the bronchoscope was inserted through the left nostril. It passed through the left nasopharynx into the oropharynx. The hypopharynx was identified and topicalized. The hypopharyngeal structures including anterior commissure, true cords, false cords, arytenoids, piriform sinuses - right and left, epiglottis, and valleculae, all appeared normal. After topicalization of the glottic opening, the bronchoscope was pushed through the glottic opening into the trachea. The trachea appeared normal. Tracheal lavon was sharp. There was a thorough evaluation of both lungs including the right upper lobe and its 3 segments, right middle lobe and its 2 segments, right lower lobe and its 5 segments, left upper lobe proper and its 2 segments, lingula and its 2 segments, and left lower lobe and its 4 segments. There was diffuse bronchitis throughout. It was mild to moderate in severity. There was no dominant mass or tumor. There was no bleeding. There were very thick secretions noted throughout both lungs, particularly in the left lower lobe. They were very viscid and inspissated. They were very difficult to suction and remove. We did remove them with the aid of saline lavage. All the secretions and mucus were eventually suctioned. We had to go back in and out of the lungs multiple times to clear the scope. The patient tolerated the procedure well. There was no immediate complication. The fluid will be sent for analysis. The patient will be recovered. MMODL / IJN: [id number] /
[2023-05-29] MEDS: HYDROmorphone 0.5 MG/0.5 ML SYRINGE IVP PRN ×6 (00:49→23:11)
[2023-05-29] MEDS: methylPREDNISolone SOD SUCCI 125 MG/2 ML VIAL IV SCH ×4 (06:15→23:12)
[2023-05-29] MEDS: PANTOPRAZOLE 40 MG/10 ML VIAL IVP SCH (08:27)
[2023-05-29] MEDS: ALPRAZolam 1 MG TAB PO SCH ×2 (08:27→20:52)
[2023-05-29] MEDS: ENOXAPARIN 40 MG/0.4 ML SYRINGE SQ SCH (08:27)
[2023-05-29] MEDS: HYDROcodone/APAP 10-325MG 1 EACH TAB PO PRN ×2 (08:28→20:51)
[2023-05-29] MEDS: FORMOTEROL FUMARATE 20 MCG/2 ML NEBU INHALATION SCH ×2 (08:51→18:08)
[2023-05-29] MEDS: BUDESONIDE 1 MG/2 ML NEBU INHALATION SCH ×2 (08:51→18:08)
[2023-05-29] MEDS: IPRATROPIUM-ALBUTEROL 3 ML NEB INHALATION SCH ×4 (08:51→18:08)
[2023-05-29 10:44] LABS: Appearance,BF Cloudy (Clear); RBC, Body Fluid 270 /UL (0-2000)
--- NOTE | 2023-05-29 12:09 | P.PN ---
Subjective Progress Note Date: 05/29/23 This is a pleasant 63-year-old female patient with a known history of anxiety, marijuana use, former smoker with severe chronic obstructive pulmonary disease who follows with Dr. Swanson in our office. He presented to the emergency room yesterday with a 2-3 day history of increasing shortness of breath, cough and congestion. Chest x-ray revealed evidence of COPD but no acute pulmonary process. White count 8.4. Hemoglobin 13.2. Platelets 197. Sodium 139. Potassium 4.2. Bicarb 25. BUN 13. Creatinine 0.7. Glucose 176. Influenza screen negative, RSV screen negative, COVID-19 screen negative. She is seen today in consultation in the emergency department. Currently sitting up in a stretcher. She is dyspneic with conversation. Dyspneic with minimal exertion. Maintaining O2 saturations in the 90s on 3 L/m per nasal cannula. Afebrile. Hemodynamically stable. The patient is seen today 05/22/2023 in follow-up on the regular medical floor. She is currently awake and alert in no acute distress. She is continuing to maintain good O2 saturation in the 90s on 3 L/m per nasal cannula. Afebrile. Hemodynamically stable. CT angiogram revealed no evidence of pulmonary embolism. Lung longoria were clear and free of infiltrate. No atelectasis. No pleural effusion. She is continued on DuoNeb inhalations, Symbicort, Solu- Medrol. Empiric antibiotics in the form of doxycycline. Lovenox for DVT prophylaxis. The patient is seen today 05/23/2023 in follow-up on the regular medical floor. She is currently sitting up in bed. Awake and alert in no acute distress. She is breathing easier today. She is maintaining O2 saturations in the 90s on 3 L/m per nasal cannula. CT angiogram ruled out pulmonary embolism. Computed tomography scan of the abdomen and pelvis revealed inconclusive regarding a pancreatic mass. There was limited due to adjacent stomach and bowel loops which are not opacified. Recommended MRI of the pancreas. She is continued on DuoNeb inhalations, Symbicort, Solu-Medrol. Empiric antibiotics in the form of doxycycline. Lovenox for DVT prophylaxis. The patient is seen today 05/24/2023 in follow-up on the regular medical floor. She is currently sitting up in bed. Awake and alert in no acute distress. She is somewhat anxious. She is still wheezing. Dyspneic with conversation. Dyspneic with minimal exertion. Maintaining O2 saturations in the 90s on 3 L/m per nasal cannula. She is continued on DuoNeb inhalations, Pulmicort and Perforomist inhalations, Solu-Medrol. Empiric antibiotics in the form of Vibramycin. Lovenox for DVT prophylaxis. Awaiting MRI of the abdomen. The patient is seen today 05/27/2023 in follow-up on the regular medical floor. She is currently not in the chair at the bedside. Awake and alert in no acute distress. She is more short of breath today compared to yesterday. She is maintaining O2 saturations up to 100% on 4 L/m per nasal cannula. She's afebrile. Hemodynamically stable. Her symptoms have waxed and waned. We'll plan on bronchoscopy with BAL tomorrow. She is continued on DuoNeb inhalations, Pulmicort and Perforomist inhalations, Solu-Medrol. Lovenox for DVT prophylaxis empiric antibiotics in the form of Vibramycin. The patient is seen today 05/28/2023 in follow-up on the regular medical floor. She is sitting up in the bedside. Awake and alert in no acute distress. Maintaining O2 saturations in the 90s on 3 L/m per nasal cannula. Continues with a loose nonproductive cough. Continues with dyspnea on exertion. Dyspnea with conversation. Plan is for bronchoscopy with BAL today. Continued on DuoNeb inhalations, Pulmicort and Perforomist inhalations, Solu-Medrol. Lovenox for DVT prophylaxis. The patient is seen today 05/29/2023 in follow-up on the regular medical floor. She is sitting up in bed. Awake and alert in no acute distress. Maintaining O2 saturations in the 90s on liters per minute per nasal cannula. She did undergo bronchoscopy with BAL yesterday. She had significant amount of thick yellow secretions retained in the bronchial tubes more so on the left lower lobe. Cultures are pending. She is continued on DuoNeb inhalations, Pulmicort and Perforomist inhalations, Solu-Medrol. Lovenox for DVT prophylaxis. Objective - Vital Signs Vital signs: Vital Signs Temp 98.5 F 05/29/23 07:00 Pulse 72 05/29/23 09:15 Resp 18 05/29/23 07:00 BP 134/80 05/29/23 07:00 Pulse Ox 95 05/29/23 08:51 FiO2 Intake & Output 05/28/23 05/29/23 05/29/23 18:59 06:59 18:59 Intake Total 400 Balance 400 Intake: IV 400 Other: Voiding Method Toilet Toilet # Voids 2 - Exam GENERAL EXAM: Alert, very pleasant 63-year-old female, on 3 L nasal cannula, in no apparent distress. HEAD: Normocephalic. EYES: Normal reaction of pupils, equal size. NOSE: Clear with pink turbinates. THROAT: No erythema or exudates. NECK: No masses, no JVD. CHEST: No chest wall deformity. LUNGS: Equal air entry with bilateral end expiratory wheeze, diminished throughout. CVS: S1 and S2 normal with no audible murmur, regular rhythm. ABDOMEN: No hepatosplenomegaly, normal bowel sounds, no guarding or rigidity. SPINE: No scoliosis or deformity SKIN: No rashes CENTRAL NERVOUS SYSTEM: No focal deficits, tone is normal in all 4 extremities. EXTREMITIES: There is no peripheral edema. No clubbing, no cyanosis. Periphera l pulses are intact. - Labs CBC & Chem 7: 05/21/23 07:09 05/21/23 07:09 Labs: Abnormal Lab Results - Last 24 Hours (Table) 05/28/23 Range/Units 13:15 Fluid Appearance Cloudy A (Clear) Assessment and Plan Assessment: Acute exacerbation of chronic obstructive pulmonary disease Acute on chronic hypoxemic respiratory failure secondary to above History of chronic tobacco dependence, quit earlier this year History of anxiety History of marijuana use Plan: The patient was seen and evaluated Medications reviewed Continue the current treatment plan bronchoscopy with BAL performed yesterday Cultures pending Titrate down the FiO2 as tolerated We will continue to follow I have personally seen and examined the patient, performed the documentation and the assessment and plan as written. Number of minutes spent on the visit: 10.
--- NOTE | 2023-05-29 14:22 | P.PN ---
Subjective Progress Note Date: 05/29/23 62-year-old female with a PMH of COPD with chronic hypoxic respiratory failure on 2.5 L nighttime supplemental oxygen who presents to the emergency room with complaints of shortness of breath, wheezing, and nonproductive cough. In the emergency room EKG revealed sinus rhythm at 86 bpm with inferior lead Q waves with no ST/T-wave changes noted as reviewed by me. Chest x-ray revealed findings consistent with COPD with no acute abnormalities as reviewed by me. Laboratory evaluation was reviewed and revealed WBC count 8.2, troponin less than 0.012, proBNP 92, with influenza, RSV, and COVID-19 testing negative. SpO2 in the emergency room upon arrival was 98% on 4 L nasal cannula oxygen. Patient admitted for COPD exacerbation. Pulmonology also consulted. Currently on bronchodilators and IV steroids. CTA chest was negative for PE but did show pancreatic fullness which was not completely visualize. Subsequent CT abdomen and pelvis could not exclude pancreatic mass, recommended CT abdomen with oral contrast or MRI of the pancreas. Pancreatic MRI did not show any pancreatic mass. Initially plan was for bronchoscopy with Pulmonology however patient showed clinical improvement on 05/26 and procedure was held. 05/27 Patient was seen and examined. She reports worsening of her breathing. She is schduled for bronchoscopy tomorrow with Dr. Swanson. 05/28 Patient was seen and examined. Currently on 4L NC. Plans for bronchoscopy today. She is quite anxious. Reports increased pain in the LUQ and chest. 05/29 Patient was seen and examined. She continues to feel SOB with diffuse wheezing. Currently on 3L NC. Underwent bronchoscopy on 05/28, found to have thick secretions in the LLL with diffuse bronchitis. BAL cultures collected and pending. General: nontoxic, no distress, appears at stated age Derm: warm, dry Head: atraumatic, normocephalic, symmetric Eyes: EOMI, no lid lag, anicteric sclera Cardiovascular: S1S2 reg, no murmur Lungs: Bilateral inspiratory and expiratory wheezing , supplemental oxygen Ext: no gross muscle atrophy, no edema, no contractures Neuro: no focal neuro deficits Psych: Alert, oriented, appropriate affect Based on my assessment of this patient, this patient meets a moderate complexity level of care. Patient has a history of COPD with severe exacerbation or progression of disease which poses a threat to life or bodily function. COPD with acute severe exacerbation: Status post bronchoscopy and BAL 05/28. DuoNeb scheduled and PRN for SOB/wheezing. Pulmicort INH BID. Doxycycline 100 mg PO BID. Formoterol INH BID. Solumedrol 60 mg IV Q6H. Acute on chronic hypoxic respiratory failure Anxiety: Xanax 1 mg PO BID. Abdominal pain, epigastric Gastritis, likely NSAID use related: Protonix 40 mg IV QD. CODE STATUS: FULL CODE DVT Prophylaxis: Lovenox GI Prophylaxis: Protonix Designated medical POA if patient is not able to make medical decisions for th emselves: I have reviewed the following knowledge management consultant notes: Pulm note, bronch note. I have reviewed the results of the following tests: I have ordered the following tests: I have discussed the care of this patient with the following independent historian: I have independently interpreted the following test below: I have discussed the management of this patient with the following physician: Objective - Vital Signs Vital signs: Vital Signs Temp 98.5 F 05/29/23 07:00 Pulse 72 05/29/23 09:15 Resp 18 05/29/23 07:00 BP 134/80 05/29/23 07:00 Pulse Ox 95 05/29/23 08:51 FiO2 Intake & Output 05/28/23 05/29/23 05/29/23 18:59 06:59 18:59 Intake Total 400 Balance 400 Intake: IV 400 Other: Voiding Method Toilet Toilet # Voids 2 - Labs CBC & Chem 7: 05/21/23 07:09 05/21/23 07:09
[2023-05-30] MEDS: HYDROcodone/APAP 10-325MG 1 EACH TAB PO PRN ×2 (03:35→12:17)
[2023-05-30] MEDS: HYDROmorphone 0.5 MG/0.5 ML SYRINGE IVP PRN ×4 (04:51→20:58)
[2023-05-30] MEDS: methylPREDNISolone SOD SUCCI 125 MG/2 ML VIAL IV SCH ×3 (06:29→17:57)
[2023-05-30] MEDS: ALPRAZolam 1 MG TAB PO SCH ×2 (06:38→20:58)
[2023-05-30] MEDS: ENOXAPARIN 40 MG/0.4 ML SYRINGE SQ SCH (08:06)
[2023-05-30] MEDS: PANTOPRAZOLE 40 MG/10 ML VIAL IVP SCH (08:06)
[2023-05-30] MEDS: FORMOTEROL FUMARATE 20 MCG/2 ML NEBU INHALATION SCH ×2 (08:47→21:45)
[2023-05-30] MEDS: IPRATROPIUM-ALBUTEROL 3 ML NEB INHALATION SCH ×4 (08:47→21:45)
[2023-05-30] MEDS: BUDESONIDE 1 MG/2 ML NEBU INHALATION SCH ×2 (08:47→21:45)
[2023-05-30] MEDS: KETOROLAC 15 MG/ML 1 ML VIAL IVP SCH ×3 (09:53→17:57)
[2023-05-30 12:01] LABS: HCT 38.8 % (34.0-46.0); HGB 12.8 gm/dL (11.4-16.0); MCH 28.7 pg (25.0-35.0); MCHC 33.1 g/dL (31.0-37.0); MCV 86.6 fL (80.0-100.0); Mean Platelet Volume 8.7; Platelet Count 232 k/uL (150-450); RBC 4.48 m/uL (3.80-5.40); RDW 13.8 % (11.5-15.5); WBC 14.8 k/uL (3.8-10.6)
[2023-05-30 12:39] LABS: African American GFR (CKD) >90 (>60 ml/min/1.73 sqM); Anion Gap 6 mmol/L; Blood Urea Nitrogen 35 mg/dL (7-17); Calcium 8.6 mg/dL (8.4-10.2); Carbon Dioxide 28 mmol/L (22-30); Chloride 100 mmol/L (98-107); Glucose 106 mg/dL (74-99); Non-African American GFR(CKD) >90 (>60 ml/min/1.73 sqM); Potassium 4.5 mmol/L (3.5-5.1); Sodium 134 mmol/L (137-145)
--- NOTE | 2023-05-30 13:39 | P.PN ---
Subjective Progress Note Date: 05/30/23 62-year-old female with a PMH of COPD with chronic hypoxic respiratory failure on 2.5 L nighttime supplemental oxygen who presents to the emergency room with complaints of shortness of breath, wheezing, and nonproductive cough. In the emergency room EKG revealed sinus rhythm at 86 bpm with inferior lead Q waves with no ST/T-wave changes noted as reviewed by me. Chest x-ray revealed findings consistent with COPD with no acute abnormalities as reviewed by me. Laboratory evaluation was reviewed and revealed WBC count 8.2, troponin less than 0.012, proBNP 92, with influenza, RSV, and COVID-19 testing negative. SpO2 in the emergency room upon arrival was 98% on 4 L nasal cannula oxygen. Patient admitted for COPD exacerbation. Pulmonology also consulted. Currently on bronchodilators and IV steroids. CTA chest was negative for PE but did show pancreatic fullness which was not completely visualize. Subsequent CT abdomen and pelvis could not exclude pancreatic mass, recommended CT abdomen with oral contrast or MRI of the pancreas. Pancreatic MRI did not show any pancreatic mass. Initially plan was for bronchoscopy with Pulmonology however patient showed clinical improvement on 05/26 and procedure was held. 05/27 She reports worsening of her breathing. She is scheduled for bronchoscopy tomorrow with Dr. Swanson. 05/28 Plans for bronchoscopy today. 05/29 Underwent bronchoscopy and BAL on 05/28, found to have thick secretions in the LLL with diffuse bronchitis. BAL cultures collected and pending. 05/30 Patient was seen and examined. Still short of breath and wheezing but better than yesterday. Currently on 3L NC. BAL gram stain PMN, gram + cocci, gram - bacilli. CBC WBC count 14.8. BMP Na 134, BUN 35, glu 106. General: nontoxic, mild distress, appears at stated age Derm: warm, dry Head: atraumatic, normocephalic, symmetric Eyes: EOMI, no lid lag, anicteric sclera Cardiovascular: S1S2 reg, no murmur Lungs: Bilateral inspiratory and expiratory wheezing , supplemental oxygen Ext: no gross muscle atrophy, no edema, no contractures Neuro: no focal neuro deficits Psych: Alert, oriented, appropriate affect Based on my assessment of this patient, this patient meets a moderate complexity level of care. Patient has a history of COPD with severe exacerbation or progression of disease which poses a threat to life or bodily function. COPD with acute severe exacerbation: Status post bronchoscopy and BAL 05/28. DuoNeb scheduled and PRN for SOB/wheezing. Pulmicort INH BID. Completed 7 day course of Doxycycline. Formoterol INH BID. Solumedrol 60 mg IV Q6H. Acute on chronic hypoxic respiratory failure: Telemetry monitoring. Supplemental O2 to maintain O2 sat > 92%. Home O2 eval. Prerenal azotemia: Patient encouraged hydration by mouth. Anxiety: Xanax 1 mg PO BID. Abdominal pain, epigastric Gastritis, likely NSAID use related: Protonix 40 mg IV QD. CODE STATUS: FULL CODE DVT Prophylaxis: Lovenox GI Prophylaxis: Protonix Designated medical POA if patient is not able to make medical decisions for themselves: I have reviewed the following travel consultant notes: Pulm note. I have reviewed the results of the following tests: BAL cultures. CBC. BMP I have ordered the following tests: I have discussed the care of this patient with the following independent historian: I have independently interpreted the following test below: I have discussed the management of this patient with the following physician: Objective - Vital Signs Vital signs: Vital Signs Temp 98.9 F 05/30/23 07:32 Pulse 80 05/30/23 07:32 Resp 18 05/30/23 07:32 BP 143/71 05/30/23 07:32 Pulse Ox 96 05/30/23 07:32 FiO2 Intake & Output 05/29/23 05/30/23 05/30/23 18:59 06:59 18:59 Other: # Voids 3 4 - Labs CBC & Chem 7: 05/30/23 10:41 05/30/23 10:41 Labs: Abnormal Lab Results - Last 24 Hours (Table) 05/28/23 Range/Units 13:15 Fluid Appearance Cloudy A (Clear) Microbiology - Last 24 Hours (Table) 05/28/23 13:15 Gram Stain - Preliminary Bronchoalviolar Lavage - Left 05/28/23 13:15 Acid Fast Bacilli Smear - Preliminary Bronchoalviolar Lavage - Left
--- NOTE | 2023-05-30 13:39 | P.PN ---
Subjective Progress Note Date: 05/30/23 Principal diagnosis: Shortness of breath. This is a pleasant 63-year-old female patient with a known history of anxiety, marijuana use, former smoker with severe chronic obstructive pulmonary disease who follows with Dr. Swanson in our office. He presented to the emergency room y esterday with a 2-3 day history of increasing shortness of breath, cough and congestion. Chest x-ray revealed evidence of COPD but no acute pulmonary process. White count 8.4. Hemoglobin 13.2. Platelets 197. Sodium 139. Potassium 4.2. Bicarb 25. BUN 13. Creatinine 0.7. Glucose 176. Influenza screen negative, RSV screen negative, COVID-19 screen negative. She is seen today in consultation in the emergency department. Currently sitting up in a stretcher. She is dyspneic with conversation. Dyspneic with minimal exertion. Maintaining O2 saturations in the 90s on 3 L/m per nasal cannula. Afebrile. Hemodynamically stable. The patient is seen today 05/22/2023 in follow-up on the regular medical floor. She is currently awake and alert in no acute distress. She is continuing to maintain good O2 saturation in the 90s on 3 L/m per nasal cannula. Afebrile. Hemodynamically stable. CT angiogram revealed no evidence of pulmonary embolism. Lung longoria were clear and free of infiltrate. No atelectasis. No pleural effusion. She is continued on DuoNeb inhalations, Symbicort, Solu- Medrol. Empiric antibiotics in the form of doxycycline. Lovenox for DVT prophylaxis. The patient is seen today 05/23/2023 in follow-up on the regular medical floor. She is currently sitting up in bed. Awake and alert in no acute distress. She is breathing easier today. She is maintaining O2 saturations in the 90s on 3 L/m per nasal cannula. CT angiogram ruled out pulmonary embolism. Computed tomography scan of the abdomen and pelvis revealed inconclusive regarding a pancreatic mass. There was limited due to adjacent stomach and bowel loops which are not opacified. Recommended MRI of the pancreas. She is continued on DuoNeb inhalations, Symbicort, Solu-Medrol. Empiric antibiotics in the form of doxycycline. Lovenox for DVT prophylaxis. The patient is seen today 05/24/2023 in follow-up on the regular medical floor. She is currently sitting up in bed. Awake and alert in no acute distress. She is somewhat anxious. She is still wheezing. Dyspneic with conversation. Dyspneic with minimal exertion. Maintaining O2 saturations in the 90s on 3 L/m per nasal cannula. She is continued on DuoNeb inhalations, Pulmicort and Perforomist inhalations, Solu-Medrol. Empiric antibiotics in the form of Vibramycin. Lovenox for DVT prophylaxis. Awaiting MRI of the abdomen. Progress note dated 05/25/2023. The patient is seen today, in room 451. The patient continues on oxygen at 3 L. She states that she is not any better. She's not receiving any IV fluids today we talk about bronchoscopy, and BAL, if she does not improve. It can be done either tomorrow or the following day. No new labs today. The patient is scheduled for MRI of the pancreas today. Progress note dated 05/26/2023. 63-year-old female who was admitted with a COPD exacerbation, is seen today in room 451. The plan was to ask he think about doing a bronchoscopy on this patient today, but when he walked in the room, the patient was feeling much better. She was sitting upright in the chair. She continues on 3 L of oxygen. No fluids. The patient felt like she didn't really need bronchoscopy at this time. The patient also had an MRI of the pancreas, for suspected pancreatic lesion. Nothing was seen on MRI. No new labs today. The labs from May 21 and have been reviewed. Progress note dated 05/30/2023. 63-year-old female seen in room 451. The patient was admitted with a diagnosis of COPD exacerbation. The patient has not been here for 10 days. The patient finally agreed to have bronchoscopy, which was beneficial. She had thick mucous plugs, that were suctioned. Currently, she is on 3 L of oxygen. She's not receiving any IV fluids. White count 14.8, hemoglobin 12.8, hematocrit 38.8, and platelet count 232,000. Sodium 134, potassium 4.5, chlorides 100, CO2 28, BUN 35, and creatinine 0.66. Glucose 106. Fluid analysis from the bronchoscopy reveals fluid to be cloudy, with 78% PMNs. The lavage is revealing gram- negative bacilli, yet to be identified. She is currently not on any antibiotic. Objective - Vital Signs Vital signs: Vital Signs Temp 98.9 F 05/30/23 07:32 Pulse 85 05/30/23 12:41 Resp 18 05/30/23 07:32 BP 143/71 05/30/23 07:32 Pulse Ox 97 05/30/23 08:47 FiO2 Intake & Output 05/29/23 05/30/23 05/30/23 18:59 06:59 18:59 Other: # Voids 3 4 - Exam No acute distress, oriented 3. The patient's currently on 3 L oxygen. No use of accessory muscles, or conversational dyspnea. HEENT examination is grossly unremarkable. Mucous membranes are moist. No oral lesions. Neck supple. Full range of motion. No adenopathy thyromegaly or neck vein distention. Cardiovascular examination reveals regular rhythm rate. S1-S2 normal. No S3 or S4. No discernible murmur noted. Heart sounds are distant. Heart rate 5 bpm. Lungs reveal scattered expiratory wheezes and rhonchi. Breath sounds are equal. There is slight prolongation. No crackles. Breath sounds are improved compared to yesterday's exam. 3 L saturation is 96%. Abdomen soft bowel sounds are heard. No masses or tenderness. Extremities are intact. No cyanosis clubbing or edema. Skin is without rash or lesion. Neurologic examination is brief but nonfocal. - Labs CBC & Chem 7: 05/30/23 10:41 05/30/23 10:41 Labs: Abnormal Lab Results - Last 24 Hours (Table) 05/30/23 05/30/23 Range/Units 10:41 10:41 WBC 14.8 H (3.8-10.6) k/uL Sodium 134 L (137-145) mmol/L BUN 35 H (7-17) mg/dL Glucose 106 H (74-99) mg/dL Microbiology - Last 24 Hours (Table) 05/28/23 13:15 Gram Stain - Preliminary Bronchoalviolar Lavage - Left Bronchial Washings Culture - Preliminary Gram Neg Bacilli 05/28/23 13:15 Acid Fast Bacilli Smear - Preliminary Bronchoalviolar Lavage - Left Assessment and Plan Assessment: Acute exacerbation of chronic obstructive pulmonary disease. S/P bronchoscopy, and BAL, 05/28/2023. Gram-negative bacilli in BAL fluid. Acute on chronic hypoxemic respiratory failure, secondary to above. History of chronic tobacco dependence, quit earlier this year. History of anxiety. History of marijuana use. Possible pancreatic mass and MRI is pending. Plan: Plan dated 05/25/2023. Despite excellent medications, the patient still quite bronchospastic, and really doesn't feel much better. I told her today, that if she is not any bett er by tomorrow, we will consider doing bronchoscopy, airway examination, therapeutic lavage, and BAL. She continues on steroids, and bronchodilators. She did have her pancreatic MRI today. The results are not yet on the chart. Additional recommendations and suggestions are forthcoming. Labs, x-rays, and medications are reviewed. Prognosis is guarded. Plan dated 05/26/2023. The patient is doing well. The patient feels much better. We're planning to do bronchoscopy on this patient today, but, she can now eat. I told her that should she have an issue later this week, we can always do it on Wednesday. She's on appropriate medications including breathing treatments, and steroids. Labs, x-rays, and medications are reviewed. Patient's overall prognosis remains guarded. We will continue to see the patient, make recommendations. Plan dated 05/30/2023. The patient will be started on antibiotic. We will also check a pro-calcitonin level. The BAL fluid had a predominance of PMNs, and there are gram-negative bacilli in the fluid. Clinically, the patient appears better. Her breathing is improved. She continues on oxygen at 3 L. We will continue to follow make recommendations along the way. Prognosis is guarded. Time with Patient: Less than 30
[2023-05-31] MEDS: methylPREDNISolone SOD SUCCI 125 MG/2 ML VIAL IV SCH ×4 (00:11→17:49)
[2023-05-31] MEDS: KETOROLAC 15 MG/ML 1 ML VIAL IVP SCH ×4 (00:11→17:49)
[2023-05-31] MEDS: HYDROcodone/APAP 10-325MG 1 EACH TAB PO PRN ×3 (01:19→22:43)
[2023-05-31] MEDS: ENOXAPARIN 40 MG/0.4 ML SYRINGE SQ SCH (08:34)
[2023-05-31] MEDS: BUDESONIDE 1 MG/2 ML NEBU INHALATION SCH ×2 (08:45→21:49)
[2023-05-31] MEDS: FORMOTEROL FUMARATE 20 MCG/2 ML NEBU INHALATION SCH ×2 (08:45→21:49)
[2023-05-31] MEDS: IPRATROPIUM-ALBUTEROL 3 ML NEB INHALATION SCH ×4 (08:45→21:49)
[2023-05-31] MEDS: ALPRAZolam 1 MG TAB PO SCH ×2 (08:47→22:44)
[2023-05-31] MEDS: PANTOPRAZOLE 40 MG/10 ML VIAL IVP SCH (10:27)
[2023-05-31] MEDS: HYDROmorphone 0.5 MG/0.5 ML SYRINGE IVP PRN ×3 (10:27→19:55)
--- NOTE | 2023-05-31 13:07 | P.PN ---
Subjective Progress Note Date: 05/31/23 This is a pleasant 63-year-old female patient with a known history of anxiety, marijuana use, former smoker with severe chronic obstructive pulmonary disease who follows with Dr. Swanson in our office. He presented to the emergency room yesterday with a 2-3 day history of increasing shortness of breath, cough and congestion. Chest x-ray revealed evidence of COPD but no acute pulmonary process. White count 8.4. Hemoglobin 13.2. Platelets 197. Sodium 139. Potassium 4.2. Bicarb 25. BUN 13. Creatinine 0.7. Glucose 176. Influenza screen negative, RSV screen negative, COVID-19 screen negative. She is seen today in consultation in the emergency department. Currently sitting up in a stretcher. She is dyspneic with conversation. Dyspneic with minimal exertion. Maintaining O2 saturations in the 90s on 3 L/m per nasal cannula. Afebrile. Hemodynamically stable. The patient is seen today 05/22/2023 in follow-up on the regular medical floor. She is currently awake and alert in no acute distress. She is continuing to maintain good O2 saturation in the 90s on 3 L/m per nasal cannula. Afebrile. Hemodynamically stable. CT angiogram revealed no evidence of pulmonary embolism. Lung longoria were clear and free of infiltrate. No atelectasis. No pleural effusion. She is continued on DuoNeb inhalations, Symbicort, Solu- Medrol. Empiric antibiotics in the form of doxycycline. Lovenox for DVT prophylaxis. The patient is seen today 05/23/2023 in follow-up on the regular medical floor. She is currently sitting up in bed. Awake and alert in no acute distress. She is breathing easier today. She is maintaining O2 saturations in the 90s on 3 L/m per nasal cannula. CT angiogram ruled out pulmonary embolism. Computed tomography scan of the abdomen and pelvis revealed inconclusive regarding a pancreatic mass. There was limited due to adjacent stomach and bowel loops which are not opacified. Recommended MRI of the pancreas. She is continued on DuoNeb inhalations, Symbicort, Solu-Medrol. Empiric antibiotics in the form of doxycycline. Lovenox for DVT prophylaxis. The patient is seen today 05/24/2023 in follow-up on the regular medical floor. She is currently sitting up in bed. Awake and alert in no acute distress. She is somewhat anxious. She is still wheezing. Dyspneic with conversation. Dyspneic with minimal exertion. Maintaining O2 saturations in the 90s on 3 L/m per nasal cannula. She is continued on DuoNeb inhalations, Pulmicort and Perforomist inhalations, Solu-Medrol. Empiric antibiotics in the form of Vibramycin. Lovenox for DVT prophylaxis. Awaiting MRI of the abdomen. Progress note dated 05/25/2023. The patient is seen today, in room 451. The patient continues on oxygen at 3 L. She states that she is not any better. She's not receiving any IV fluids today we talk about bronchoscopy, and BAL, if she does not improve. It can be done either tomorrow or the following day. No new labs today. The patient is scheduled for MRI of the pancreas today. Progress note dated 05/26/2023. 63-year-old female who was admitted with a COPD exacerbation, is seen today in room 451. The plan was to ask he think about doing a bronchoscopy on this patient today, but when he walked in the room, the patient was feeling much better. She was sitting upright in the chair. She continues on 3 L of oxygen. No fluids. The patient felt like she didn't really need bronchoscopy at this time. The patient also had an MRI of the pancreas, for suspected pancreatic lesion. Nothing was seen on MRI. No new labs today. The labs from May 21 and have been reviewed. Progress note dated 05/30/2023. 63-year-old female seen in room 451. The patient was admitted with a diagnosis of COPD exacerbation. The patient has not been here for 10 days. The patient finally agreed to have bronchoscopy, which was beneficial. She had thick mucous plugs, that were suctioned. Currently, she is on 3 L of oxygen. She's not receiving any IV fluids. White count 14.8, hemoglobin 12.8, hematocrit 38.8, and platelet count 232,000. Sodium 134, potassium 4.5, chlorides 100, CO2 28, BUN 35, and creatinine 0.66. Glucose 106. Fluid analysis from the bronchoscopy reveals fluid to be cloudy, with 78% PMNs. The lavage is revealing gram-negat geovanny bacilli, yet to be identified. She is currently not on any antibiotic. On 05/31/2023, I'm seeing the patient for a follow-up. The patient is slightly feeling better. Less congested less spastic and wheezing. During the course of her hospital stay, the patient underwent a bronchoscopy and the bronchial alveolar lavage showing gram-negative bacillus, final cultures still pending for now. She remains on Pulmicort Respules and Perforomist which is also on DuoNeb nebulized treatments 4 times a day. She is on IV Solu-Medrol 60 mg every 6 hours. She is on IV Rocephin. CT angiogram showed no evidence of any acute pulmonary infiltrates. The patient also had pro calcitonin level was at 0.03. The BUN is at 35 with a creatinine of 0.6 and a white cell count of 14.8. She has home oxygen. She is usually using 2.5 L and currently she is at 3 L Objective - Vital Signs Vital signs: Vital Signs Temp 97.6 F 05/31/23 06:59 Pulse 78 05/31/23 12:20 Resp 18 05/31/23 06:59 BP 156/85 05/31/23 06:59 Pulse Ox 96 05/31/23 08:45 FiO2 Intake & Output 05/30/23 05/31/23 05/31/23 18:59 06:59 18:59 Other: Voiding Method Toilet # Voids 4 2 - Exam No acute distress, oriented 3. The patient's currently on 3 L oxygen. No use of accessory muscles, or conversational dyspnea. HEENT examination is grossly unremarkable. Mucous membranes are moist. No oral lesions. Neck supple. Full range of motion. No adenopathy thyromegaly or neck vein distention. Cardiovascular examination reveals regular rhythm rate. S1-S2 normal. No S3 or S4. No discernible murmur noted. Heart sounds are distant. Lungs reveal scattered expiratory wheezes and rhonchi. Breath sounds are equal. There is slight prolongation. No crackles. Breath sounds are improved compared to yesterday's exam. 3 L saturation is 96%. Abdomen soft bowel sounds are heard. No masses or tenderness. Extremities are intact. No cyanosis clubbing or edema. Skin is without rash or lesion. Neurologic examination is brief but nonfocal. - Labs CBC & Chem 7: 05/30/23 10:41 05/30/23 10:41 Labs: Microbiology - Last 24 Hours (Table) 05/28/23 13:15 Gram Stain - Preliminary Bronchoalviolar Lavage - Left Bronchial Washings Culture - Preliminary Gram Neg Bacilli Assessment and Plan Plan: Acute exacerbation of chronic obstructive pulmonary disease. S/P bronchoscopy, and BAL, 05/28/2023. Gram-negative bacilli in BAL fluid. Acute on chronic hypoxemic respiratory failure, secondary to above. 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 History of anxiety. History of marijuana use. Possible pancreatic mass and MRI is pending, MRI was negative Plan: Awaiting final results of the bronchial alveolar lavage which is showing gram- negative bacillus. The patient remains on IV Rocephin. We'll continue same treatment We'll start tapering there is a prednisone burst taper as of tomorrow She has home O2 and this was recertified We will going to follow.
--- NOTE | 2023-05-31 15:31 | P.PN ---
Subjective Progress Note Date: 05/31/23 No new complaints, still having some wheezing today. Gen: awake, alert HEENT: normocephalic, atraumatic, good hearing acuity, moist mucous membranes Resp: good air exchange, breathing comfortably with no accessory muscle use, wheezing still present in all lung longoria CVS: good distal perfusion x 4, GI: soft, NTTP, ND : no SPT, no CVAT, wang catheter not present MSK: no pitting edema, no clubbing Neuro: non-focal, moving all extremities Psych: cooperative, euthymic mood Hospital Course: 62-year-old female with a PMH of COPD with chronic hypoxic respiratory failure on 2.5 L nighttime supplemental oxygen who presents to the emergency room with complaints of shortness of breath, wheezing, and nonproductive cough. In the emergency room EKG revealed sinus rhythm at 86 bpm with inferior lead Q waves with no ST/T-wave changes noted as reviewed by me. Chest x-ray revealed findings consistent with COPD with no acute abnormalities as reviewed by me. Laboratory evaluation was reviewed and revealed WBC count 8.2, troponin less than 0.012, proBNP 92, with influenza, RSV, and COVID-19 testing negative. SpO2 in the emergency room upon arrival was 98% on 4 L nasal cannula oxygen. Patient admitted for COPD exacerbation. Pulmonology also consulted. Currently on bronchodilators and IV steroids. CTA chest was negative for PE but did show pancreatic fullness which was not completely visualize. Subsequent CT abdomen and pelvis could not exclude pancreatic mass, recommended CT abdomen with oral contrast or MRI of the pancreas. Pancreatic MRI did not show any pancreatic mass. Initially plan was for bronchoscopy with Pulmonology however patient showed clinical improvement on 05/26 and procedure was held. 05/27 She reports worsening of her breathing. She is scheduled for bronchoscopy tomorrow with Dr. Swanson. 05/28 Plans for bronchoscopy today. 05/29 Underwent bronchoscopy and BAL on 05/28, found to have thick secretions in the LLL with diffuse bronchitis. BAL cultures collected and pending. 05/30 Patient was seen and examined. Still short of breath and wheezing but better than yesterday. Currently on 3L NC. BAL gram stain PMN, gram + cocci, gram - bacilli. CBC WBC count 14.8. BMP Na 134, BUN 35, glu 106. Assessment/Plan: COPD with acute severe exacerbation: Status post bronchoscopy and BAL 05/28. DuoNeb scheduled and PRN for SOB/wheezing. Pulmicort INH BID. Completed 7 day course of Doxycycline. Formoterol INH BID. Solumedrol 60 mg IV Q6H. Acute on chronic hypoxic respiratory failure: Telemetry monitoring. Supplemental O2 to maintain O2 sat > 92%. Home O2 eval. - s/p bronchoscopy and BAL on 05/28 - duonebs DARREN and PRN - pulmicort/formoterol INH BID - solumedrol 60mg IV q6h - s/p 7 days of doxycycline - MRI of pancreas is negative for mass Prerenal azotemia: Patient encouraged hydration by mouth. Anxiety: Xanax 1 mg PO BID. Abdominal pain, epigastric Gastritis, likely NSAID use related: Protonix 40 mg IV QD. CODE STATUS: FULL CODE DVT Prophylaxis: Lovenox GI Prophylaxis: Protonix Designated medical POA if patient is not able to make medical decisions for th emselves: Objective - Vital Signs Vital signs: Vital Signs Temp 97.9 F 05/31/23 14:00 Pulse 75 05/31/23 14:00 Resp 17 05/31/23 14:00 BP 129/67 05/31/23 14:00 Pulse Ox 97 05/31/23 14:00 FiO2 Intake & Output 05/30/23 05/31/23 05/31/23 18:59 06:59 18:59 Other: Voiding Method Toilet # Voids 4 2 - Labs CBC & Chem 7: 05/30/23 10:41 05/30/23 10:41
[2023-05-31] MEDS ORDERED: FUROSEMIDE 10 MG/ML 4 ML VIAL IV STA (20:07)
[2023-06-01] MEDS: KETOROLAC 15 MG/ML 1 ML VIAL IVP SCH ×3 (00:41→11:30)
[2023-06-01] MEDS: methylPREDNISolone SOD SUCCI 125 MG/2 ML VIAL IV SCH ×3 (00:41→11:30)
[2023-06-01 02:31] VITALS: RESP 18
[2023-06-01] MEDS: HYDROcodone/APAP 10-325MG 1 EACH TAB PO PRN ×2 (05:24→11:28)
[2023-06-01] MEDS: HYDROmorphone 0.5 MG/0.5 ML SYRINGE IVP PRN (06:39)
[2023-06-01] MEDS: PANTOPRAZOLE 40 MG/10 ML VIAL IVP SCH (07:55)
[2023-06-01] MEDS: ENOXAPARIN 40 MG/0.4 ML SYRINGE SQ SCH ×2 (07:55→08:02)
[2023-06-01] MEDS: ALPRAZolam 1 MG TAB PO SCH (07:55)
[2023-06-01 08:13] VITALS: BP 176/81; TEMP 97.8
[2023-06-01] MEDS: FORMOTEROL FUMARATE 20 MCG/2 ML NEBU INHALATION SCH (08:25)
[2023-06-01] MEDS: IPRATROPIUM-ALBUTEROL 3 ML NEB INHALATION SCH ×2 (08:25→11:24)
[2023-06-01] MEDS: BUDESONIDE 1 MG/2 ML NEBU INHALATION SCH (08:25)
[2023-06-01 10:21] LABS: Nucleated Cells, Body Fluid 310 /UL
--- NOTE | 2023-06-01 11:13 | P.PN ---
Subjective Progress Note Date: 06/01/23 This is a pleasant 63-year-old female patient with a known history of anxiety, marijuana use, former smoker with severe chronic obstructive pulmonary disease who follows with Dr. Swanson in our office. He presented to the emergency room yesterday with a 2-3 day history of increasing shortness of breath, cough and congestion. Chest x-ray revealed evidence of COPD but no acute pulmonary process. White count 8.4. Hemoglobin 13.2. Platelets 197. Sodium 139. Potassium 4.2. Bicarb 25. BUN 13. Creatinine 0.7. Glucose 176. Influenza screen negative, RSV screen negative, COVID-19 screen negative. She is seen today in consultation in the emergency department. Currently sitting up in a stretcher. She is dyspneic with conversation. Dyspneic with minimal exertion. Maintaining O2 saturations in the 90s on 3 L/m per nasal cannula. Afebrile. Hemodynamically stable. The patient is seen today 05/22/2023 in follow-up on the regular medical floor. She is currently awake and alert in no acute distress. She is continuing to maintain good O2 saturation in the 90s on 3 L/m per nasal cannula. Afebrile. Hemodynamically stable. CT angiogram revealed no evidence of pulmonary embolism. Lung longoria were clear and free of infiltrate. No atelectasis. No pleural effusion. She is continued on DuoNeb inhalations, Symbicort, Solu- Medrol. Empiric antibiotics in the form of doxycycline. Lovenox for DVT prophylaxis. The patient is seen today 05/23/2023 in follow-up on the regular medical floor. She is currently sitting up in bed. Awake and alert in no acute distress. She is breathing easier today. She is maintaining O2 saturations in the 90s on 3 L/m per nasal cannula. CT angiogram ruled out pulmonary embolism. Computed tomography scan of the abdomen and pelvis revealed inconclusive regarding a pancreatic mass. There was limited due to adjacent stomach and bowel loops which are not opacified. Recommended MRI of the pancreas. She is continued on DuoNeb inhalations, Symbicort, Solu-Medrol. Empiric antibiotics in the form of doxycycline. Lovenox for DVT prophylaxis. The patient is seen today 05/24/2023 in follow-up on the regular medical floor. She is currently sitting up in bed. Awake and alert in no acute distress. She is somewhat anxious. She is still wheezing. Dyspneic with conversation. Dyspneic with minimal exertion. Maintaining O2 saturations in the 90s on 3 L/m per nasal cannula. She is continued on DuoNeb inhalations, Pulmicort and Perforomist inhalations, Solu-Medrol. Empiric antibiotics in the form of Vibramycin. Lovenox for DVT prophylaxis. Awaiting MRI of the abdomen. Progress note dated 05/25/2023. The patient is seen today, in room 451. The patient continues on oxygen at 3 L. She states that she is not any better. She's not receiving any IV fluids today we talk about bronchoscopy, and BAL, if she does not improve. It can be done either tomorrow or the following day. No new labs today. The patient is scheduled for MRI of the pancreas today. Progress note dated 05/26/2023. 63-year-old female who was admitted with a COPD exacerbation, is seen today in room 451. The plan was to ask he think about doing a bronchoscopy on this patient today, but when he walked in the room, the patient was feeling much better. She was sitting upright in the chair. She continues on 3 L of oxygen. No fluids. The patient felt like she didn't really need bronchoscopy at this time. The patient also had an MRI of the pancreas, for suspected pancreatic lesion. Nothing was seen on MRI. No new labs today. The labs from May 21 and have been reviewed. Progress note dated 05/30/2023. 63-year-old female seen in room 451. The patient was admitted with a diagnosis of COPD exacerbation. The patient has not been here for 10 days. The patient finally agreed to have bronchoscopy, which was beneficial. She had thick mucous plugs, that were suctioned. Currently, she is on 3 L of oxygen. She's not receiving any IV fluids. White count 14.8, hemoglobin 12.8, hematocrit 38.8, and platelet count 232,000. Sodium 134, potassium 4.5, chlorides 100, CO2 28, BUN 35, and creatinine 0.66. Glucose 106. Fluid analysis from the bronchoscopy reveals fluid to be cloudy, with 78% PMNs. The lavage is revealing gram-negat geovanny bacilli, yet to be identified. She is currently not on any antibiotic. On 05/31/2023, I'm seeing the patient for a follow-up. The patient is slightly feeling better. Less congested less spastic and wheezing. During the course of her hospital stay, the patient underwent a bronchoscopy and the bronchial alveolar lavage showing gram-negative bacillus, final cultures still pending for now. She remains on Pulmicort Respules and Perforomist which is also on DuoNeb nebulized treatments 4 times a day. She is on IV Solu-Medrol 60 mg every 6 hours. She is on IV Rocephin. CT angiogram showed no evidence of any acute pulmonary infiltrates. The patient also had pro calcitonin level was at 0.03. The BUN is at 35 with a creatinine of 0.6 and a white cell count of 14.8. She has home oxygen. She is usually using 2.5 L and currently she is at 3 L 06/01 2023, I'm seeing the patient for a follow-up in she is doing much better at this point in time. No new complaints. The sputum sample came back positive for stenotrophomonas and the patient will benefit from a course of Bactrim to be completed on outpatient basis. Should be also started on a prednisone burst taper. No fever. No chills. No other complaints otherwise for now. Objective - Vital Signs Vital signs: Vital Signs Temp 97.8 F 06/01/23 06:56 Pulse 68 06/01/23 06:56 Resp 18 06/01/23 06:56 BP 176/81 06/01/23 06:56 Pulse Ox 92 L 06/01/23 06:56 FiO2 Intake & Output 05/31/23 06/01/23 06/01/23 18:59 06:59 18:59 Intake Total 1200 Balance 1200 Intake: Oral 1200 Other: Voiding Method Toilet # Voids 3 5 # Bowel Movements 0 - Exam No acute distress, oriented 3. The patient's currently on RA oxygen. No use of accessory muscles, or conversational dyspnea. HEENT examination is grossly unremarkable. Mucous membranes are moist. No oral lesions. Neck supple. Full range of motion. No adenopathy thyromegaly or neck vein distention. Cardiovascular examination reveals regular rhythm rate. S1-S2 normal. No S3 or S4. No discernible murmur noted. Heart sounds are distant. Lungs reveal scattered expiratory wheezes and rhonchi. Breath sounds are equal. There is slight prolongation. No crackles. Breath sounds are improved comp ared to yesterday's exam. 3 L saturation is 96%. Abdomen soft bowel sounds are heard. No masses or tenderness. Extremities are intact. No cyanosis clubbing or edema. Skin is without rash or lesion. Neurologic examination is brief but nonfocal. - Labs CBC & Chem 7: 05/30/23 10:41 05/30/23 10:41 Labs: Microbiology - Last 24 Hours (Table) 05/28/23 13:15 Acid Fast Bacilli Smear - Preliminary Bronchoalviolar Lavage - Left 05/28/23 13:15 Gram Stain - Final Bronchoalviolar Lavage - Left Bronchial Washings Culture - Final Stenotrophomonas maltophilia Assessment and Plan Plan: Acute exacerbation of chronic obstructive pulmonary disease.the patient was cultured to have stenotrophomonas in her bronchioloalveolar lavage and the patient will be given a course of Bactrim. S/P bronchoscopy, and BAL, 05/28/2023. Gram-negative bacilli in BAL fluid. Acute on chronic hypoxemic respiratory failure, secondary to above. 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 History of anxiety. History of marijuana use. Possible pancreatic mass and MRI is pending, MRI was negative Plan: stop the IV Rocephin and give the patient course of Bactrim double strength twice a day for the next 7 days Stop the IV Solu-Medrol and start the patient on prednisone burst taper The patient has a home nebulizer Patient is home O2 was recertified The patient will likely go home today to be followed up on outpatient basis
--- NOTE | 2023-06-01 11:33 | P.DS ---
Providers Date of admission: 05/20/23 19:42 Expected date of discharge: 06/01/23 Attending physician: Giuliano Wu MD Consults: 05/20/23 21:22 Consult Physician Urgent Consulting Provider: Saurav Walker Consult Reason/Comments: COPD Do you want consulting provider notified?: Yes Primary care physician: Madan Krishnamurthy MD Hospital Course: Discharge Diagnosis: COPD with acute severe exacerbation: Status post bronchoscopy and BAL 05/28. Acute on chronic hypoxic respiratory failure Prerenal azotemia Anxiety: Abdominal pain, epigastric Gastritis, likely NSAID use related Hospital Course: 62-year-old female with a PMH of COPD with chronic hypoxic respiratory failure on 2.5 L nighttime supplemental oxygen who presents to the emergency room with complaints of shortness of breath, wheezing, and nonproductive cough. In the emergency room EKG revealed sinus rhythm at 86 bpm with inferior lead Q waves with no ST/T-wave changes noted as reviewed by me. Chest x-ray revealed findings consistent with COPD with no acute abnormalities as reviewed by me. Laboratory evaluation was reviewed and revealed WBC count 8.2, troponin less than 0.012, proBNP 92, with influenza, RSV, and COVID-19 testing negative. SpO2 in the emergency room upon arrival was 98% on 4 L nasal cannula oxygen. Patient admitted for COPD exacerbation. Pulmonology also consulted. Currently on bronchodilators and IV steroids. CTA chest was negative for PE but did show pancreatic fullness which was not completely visualize. Subsequent CT abdomen and pelvis could not exclude pancreatic mass, recommended CT abdomen with oral contrast or MRI of the pancreas. Pancreatic MRI did not show any pancreatic mass. Initially plan was for bronchoscopy with Pulmonology however patient showed clinical improvement on 05/26 and procedure was held. Had bronchoscopy with BAL, found to have thick secretions in left lower lobe with diffuse bronchitis. BAL cultures growing stenotrophomonas. Patient being discharged home with oral antibiotics and steroid taper. She will follow-up with her PCP and hatch boss. She will also follow-up with palliative care through her primary care physician. Patient seen and examined at bedside. Vital signs reviewed and stable. General: nontoxic, no distress, appears at stated age Derm: warm, dry Head: atraumatic, normocephalic, symmetric Eyes: EOMI, no lid lag, anicteric sclera Mouth: no lip lesion, mucus membranes moist Cardiovascular: S1S2 reg, no murmur Lungs: Scattered wheezing , no accessory muscle use Abdominal: soft, nontender to palpation, no guarding, no appreciable organomegaly Ext: no gross muscle atrophy, no edema, no contractures Neuro: CN II-XI grossly intact, no focal neuro deficits Psych: Alert, oriented, appropriate affect A total of 33 minutes of time were spent preparing this complex discharge summary. Patient was discharged on 06/01/23 at 11:28. Patient Condition at Discharge: Stable Plan - Discharge Summary New Discharge Prescriptions: New Sulfamethox-Tmp 800-160Mg [Bactrim DS 800-160 mg] 1 tab PO Q12HR #14 tab predniSONE [Deltasone] 20 mg PO DAILY #25 tab Pantoprazole [Protonix] 40 mg PO DAILY #60 tab Continue Albuterol Nebulized [Ventolin Nebulized] 2.5 mg INHALATION RT-Q4H PRN PRN Reason: Shortness Of Breath HYDROcodone/APAP 10-325MG [Balfour 10-325] 1 tab PO TID Fluticasone/Umeclidin/Vilanter [Trelegy Ellipta 200-62.5-25] 1 puff INHALATION RT-DAILY ALPRAZolam [Xanax] 1 mg PO BID Albuterol Sulfate [Ventolin HFA] 2 puff INHALATION RT-Q4H PRN PRN Reason: Shortness Of Breath Discharge Medication List ALPRAZolam [Xanax] 1 mg PO BID 05/20/23 [History] Albuterol Nebulized [Ventolin Nebulized] 2.5 mg INHALATION RT-Q4H PRN 05/20/23 [History] Albuterol Sulfate [Ventolin HFA] 2 puff INHALATION RT-Q4H PRN 05/20/23 [History] Fluticasone/Umeclidin/Vilanter [Trelegy Ellipta 200-62.5-25] 1 puff INHALATION RT-DAILY 05/20/23 [History] HYDROcodone/APAP 10-325MG [Balfour 10-325] 1 tab PO TID 05/20/23 [History] Pantoprazole [Protonix] 40 mg PO DAILY #60 tab 06/01/23 [Rx] Sulfamethox-Tmp 800-160Mg [Bactrim DS 800-160 mg] 1 tab PO Q12HR #14 tab 06/01/23 [Rx] predniSONE [Deltasone] 20 mg PO DAILY #25 tab 06/01/23 [Rx] Follow up Appointment(s)/Referral(s): Madan Krishnamurthy MD [Primary Care Provider] - 1-2 days Patient Instructions/Handouts: COPD (Chronic Obstructive Pulmonary Disease) (DC) Activity/Diet/Wound Care/Special Instructions: Please see your PCP and hatch boss. Please also see palliative care. Discharge Disposition: HOME SELF-CARE
[2023-06-01 11:52] VITALS: PULSE 80
== END 2023-06-01 13:38 | disposition home or self-care (01) | DRG 190 ==
LOC: EC 18:22 → 4SSUR 19:42
PROVIDERS: ADMIT Internal Medicine; ATTEND Internal Medicine
PROC: 0B9J8ZX Drainage of Left Lower Lung Lobe, Via Natural or Artificial Opening Endoscopic, Diagnostic (ICD-10-PCS; principal; 2023-05-28 13:05)
DX: J44.1 Chronic obstructive pulmonary disease with (acute) exacerbation (principal); J15.69 Pneumonia due to other Gram-negative bacteria; J96.21 Acute and chronic respiratory failure with hypoxia; T17.890A Other foreign object in other parts of respiratory tract causing asphyxiation, initial encounter; Z20.822 Contact with and (suspected) exposure to COVID-19; Z99.81 Dependence on supplemental oxygen; F41.9 Anxiety disorder, unspecified; K29.70 Gastritis, unspecified, without bleeding; T39.395A Adverse effect of other nonsteroidal anti-inflammatory drugs [NSAID], initial encounter; K86.89 Other specified diseases of pancreas; J44.0 Chronic obstructive pulmonary disease with (acute) lower respiratory infection; Z88.1 Allergy status to other antibiotic agents; Z88.0 Allergy status to penicillin; X58.XXXA Exposure to other specified factors, initial encounter; Z87.891 Personal history of nicotine dependence
CPT/HCPCS: 31624; 31645; 36415; 71045; 71275; 74176; 74183; 80048; 80053; 83605; 83880; 84145; 84484; 85025; 85027; 85610; 85730; 87070; 87077; 87102; 87116; 87186; 87205; 87206; 87636; 88108; 88305; 89050; 93005; 94640; 94760; 96372; 96374; 96375; 96376; 99291

== ENCOUNTER 2023-06-11 10:44 | Emergency (ER) | payer MEDICARE, OTHER ==
--- NOTE | 2023-06-11 11:19 | ED ---
Extremity Problem HPI - General Chief complaint: Extremity Problem,Nontraumatic Stated complaint: swelling of both legs Time Seen by Provider: 06/11/23 11:10 Source: patient, family, RN notes reviewed Mode of arrival: ambulatory Limitations: no limitations - History of Present Illness Initial comments: Patient is a 63-year-old female presented ER with chief complaint of bilateral leg swelling. Patient has past medical history significant for COPD and was recently hospitalized. Dr. Swanson advised against her leaving the hospital when she did the patient left anyways due to her mother's 90th birthday. Patient states since her discharge she has having increased swelling to both ankles. She states the swelling is moving up her legs now. Patient also states that she has a burning sensation in her feet and ankles. She denies any increasing in genevieve rtness of breath and has been doing her nebulized DuoNeb treatments. Denies dry cough, exertional dyspnea or change in orthopnea. Patient states she sleeps on 3 pillows at night which has not changed since discharge from hospital. Patient denies any chest pain, fevers, chills, night sweats. - Related Data Home Medications Medication Instructions Recorded Confirmed ALPRAZolam [Xanax] 1 mg PO BID 05/20/23 05/20/23 Albuterol Nebulized [Ventolin 2.5 mg INHALATION RT-Q4H PRN 05/20/23 05/20/23 Nebulized] Albuterol Sulfate [Ventolin HFA] 2 puff INHALATION RT-Q4H PRN 05/20/23 05/20/23 Fluticasone/Umeclidin/Vilanter 1 puff INHALATION RT-DAILY 05/20/23 05/20/23 [Trelegy Ellipta 200-62.5-25] HYDROcodone/APAP 10-325MG [Ronks 1 tab PO TID 05/20/23 05/20/23 10-325] Previous Rx's Medication Instructions Recorded Pantoprazole [Protonix] 40 mg PO DAILY #60 tab 06/01/23 Sulfamethox-Tmp 800-160Mg [Bactrim 1 tab PO Q12HR #14 tab 06/01/23 DS 800-160 mg] predniSONE [Deltasone] 20 mg PO DAILY #25 tab 06/01/23 Fluconazole [Diflucan] 150 mg PO ONCE #2 tab 06/11/23 Allergies Allergy/AdvReac Type Severity Reaction Status Date / Time ciprofloxacin [From Cipro] Allergy Rash/Hives Verified 06/11/23 11:05 ciprofloxacin HCl Allergy Rash/Hives Verified 06/11/23 11:05 [From Cipro] Penicillins Allergy "Passed Verified 06/11/23 11:05 out" Review of Systems ROS Statement: Those systems with pertinent positive or pertinent negative responses have been documented in the HPI. ROS Other: All systems not noted in ROS Statement are negative. Past Medical History Past Medical History: COPD History of Any Multi-Drug Resistant Organisms: None Reported Additional Past Surgical History / Comment(s): neck C2-C6 lamenectomy with bracket placement Past Psychological History: Anxiety Smoking Status: Former smoker Past Alcohol Use History: None Reported Past Drug Use History: Marijuana - Past Family History Father Family Medical History: Cancer Mother Family Medical History: AICD/Pacemaker General Exam Limitations: no limitations General appearance: alert, in no apparent distress ENT exam: Present: normal exam (Multiple white lesions note on tongue), mucous membranes moist Respiratory exam: Present: wheezes (Expiratory wheezes bilaterally) Cardiovascular Exam: Present: regular rate, normal rhythm, normal heart sounds. Absent: systolic murmur, diastolic murmur, rubs, gallop, clicks Extremities exam: Present: other (1+ pitting edema extending into pretibial region. There are excoriations noted on bilateral ankles. No active bleeding. ) Neurological exam: Present: alert, oriented X3, CN II-XII intact Psychiatric exam: Present: normal affect, normal mood Skin exam: Present: warm, dry, intact, normal color. Absent: rash Course Vital Signs 06/11/23 06/11/23 11:02 13:57 Temperature 98.4 F 98.7 F Pulse Rate 98 82 Respiratory 18 18 Rate Blood Pressure 140/92 158/95 O2 Sat by Pulse 96 99 Oximetry Medical Decision Making - Medical Decision Making Was pt. sent in by a medical professional or institution (, [facility], INSURANCE MARKETING SPECIALIST, urgent care, hospital, or half-way...) When possible be specific @ -No Did you speak to anyone other than the patient for history (EMS, parent, family, police, friend...)? What history was obtained from this source @ -Family Did you review nursing and triage notes (agree or disagree)? Why? @ -I reviewed and agree with nursing and triage notes Were old charts reviewed (outside hosp., previous admission, EMS record, old EKG, old radiological studies, urgent care reports/EKG's, half-way records)? Report findings @ -No old charts were reviewed Differential Diagnosis (chest pain, altered mental status, abdominal pain women, abdominal pain men, vaginal bleeding, weakness, fever, dyspnea, syncope, headache, dizziness, GI bleed, back pain, seizure, CVA, palpatations, mental health, musculoskeletal)? @ -Differential Dyspnea: Coronary syndrome, arrhythmia, tamponade, asthma, COPD, pulmonary embolism, pneumonia, pneumothorax, pulmonary effusion, anaphylaxis, diabetic ketoacidosis, flailed chest, pulmonary contusion, diaphragmatic rupture, anemia, neuromuscular, this is not meant to be an all- inclusive list. EKG interpreted by me (3pts min.). @ -As above X-rays interpreted by me (1pt min.). @ -Chest x-ray was negative for acute cardiopulmonary process. CT interpreted by me (1pt min.). @ -None done U/S interpreted by me (1pt. min.). @ -Lower extremity bilateral venous duplex was negative for DVTs. What testing was considered but not performed or refused? (CT, X-rays, U/S, labs)? Why? @ -None What meds were considered but not given or refused? Why? @ -None Did you discuss the management of the patient with other professionals (professionals i.e. , PA, INSURANCE MARKETING SPECIALIST, lab, RT, psych nurse, pediatric social worker, roll grinder operator, teacher, radiation officer, case assembler)? Give summary @ -No Was smoking cessation discussed for >3mins.? @ -No Was critical care preformed (if so, how long)? @ -No Were there social determinants of health that impacted care today? How? (Homelessness, low income, unemployed, alcoholism, drug addiction, transportation, low edu. Level, literacy, decrease access to med. care, halfway, rehab)? @ -No Was there de-escalation of care discussed even if they declined (Discuss DNR or withdrawal of care, Hospice)? DNR status @ -No What co-morbidities impacted this encounter? (DM, HTN, Smoking, COPD, CAD, Cancer, CVA, ARF, Chemo, Hep., AIDS, mental health diagnosis, sleep apnea, morb id obesity)? @ -COPD Was patient admitted / discharged? Hospital course, mention meds given and route, prescriptions, significant lab abnormalities, going to OR and other pertinent info. @ -Discharge. Patient is a 63-year-old female presenting to the ER with chief complaint of bilateral leg edema. Upon examination, patient's vital signs were stable. Physical exam was significant for 1+ pitting edema bilaterally. There were excoriations noted bilaterally no signs of infection. Auscultation of lungs were significant for bilateral wheezing. Patient did have white spots in her mouth which were concerning for candidiasis. Labs obtained in the ER were unimpressive. BNP was 80. Chest x-ray showed no acute cardiopulmonary process. Ultrasound venous duplex of lower extremities were negative for DVTs. Patient received IV Dilaudid for pain control in the ER. Patient was prescribed Diflucan at discharge. Patient described that she had an appointment with Dr. Swanson next week. I encouraged patient to attend that appointment and to review ER visit with him. Return parameters were discussed. Patient was discharged in stable condition with follow-up to PCP. Patient expressed understanding and agreement with care plan. Undiagnosed new problem with uncertain prognosis? @ -No Drug Therapy requiring intensive monitoring for toxicity (Heparin, Nitro, Insulin, Cardizem)? @ -No Were any procedures done? @ -No Diagnosis/symptom? @ -Oral candidiasis/dependent edema Acute, or Chronic, or Acute on Chronic? @ -Acute Uncomplicated (without systemic symptoms) or Complicated (systemic symptoms)? @ -Uncomplicated Side effects of treatment? @ -No Exacerbation, Progression, or Severe Exacerbation? @ -No Poses a threat to life or bodily function? How? (Chest pain, USA, PR, pneumonia, PE, COPD, DKA, ARF, appy, cholecystitis, CVA, Diverticulitis, Homicidal, Suicidal, threat to staff... and all critical care pts) @ -No - Lab Data Result diagrams: 06/11/23 11:29 06/11/23 11:29 Lab Results 06/11/23 06/11/23 Range/Units 11:29 11:29 WBC 8.7 (3.8-10.6) k/uL RBC 4.34 (3.80-5.40) m/uL Hgb 12.0 (11.4-16.0) gm/dL Hct 36.7 (34.0-46.0) % MCV 84.7 (80.0-100.0) fL MCH 27.7 (25.0-35.0) pg MCHC 32.8 (31.0-37.0) g/dL RDW 14.8 (11.5-15.5) % Plt Count 190 (150-450) k/uL MPV 7.1 Sodium 135 L (137-145) mmol/L Potassium 4.1 (3.5-5.1) mmol/L Chloride 101 (98-107) mmol/L Carbon Dioxide 26 (22-30) mmol/L Anion Gap 8 mmol/L BUN 17 (7-17) mg/dL Creatinine 0.73 (0.52-1.04) mg/dL Est GFR (CKD-EPI)AfAm >90 (>60 ml/min/1.73 sqM) Est GFR (CKD-EPI)NonAf 88 (>60 ml/min/1.73 sqM) Glucose 89 (74-99) mg/dL Calcium 9.0 (8.4-10.2) mg/dL Total Bilirubin 0.6 (0.2-1.3) mg/dL AST 26 (14-36) U/L ALT 33 (4-34) U/L Alkaline Phosphatase 60 (38-126) U/L NT-Pro-B Natriuret Pep 80 pg/mL Total Protein 6.6 (6.3-8.2) g/dL Albumin 4.0 (3.5-5.0) g/dL - EKG Data -: EKG Interpreted by Me EKG Comments: EKG taken at 11:33 shows normal sinus rhythm with no acute ST segment or T-wave abnormalities noted ventricular rate 89, DE interval 131, QRS duration 77, QT/QTC 333/380. - Radiology Data Radiology results: report reviewed, image reviewed Disposition Clinical Impression: Dependent edema Disposition: HOME SELF-CARE Condition: Stable Additional Instructions: Please return to the Emergency Department if symptoms worsen or any other concerns. Please follow-up with Dr. Swanson as scheduled. Prescriptions: Fluconazole [Diflucan] 150 mg PO ONCE #2 tab Is patient prescribed a controlled substance at d/c from ED?: No Referrals: Nonstaff,Physician [REFERRING] - 1-2 days Jarrett Swanson DO [Doctor of Osteopathic Medicine] - 1-2 days Time of Disposition: 13:41
[2023-06-11 11:29] VITALS: RESP 18
[2023-06-11 11:47] LABS: HCT 36.7 % (34.0-46.0); MCH 27.7 pg (25.0-35.0); MCHC 32.8 g/dL (31.0-37.0); MCV 84.7 fL (80.0-100.0); Mean Platelet Volume 7.1; Platelet Count 190 k/uL (150-450); RBC 4.34 m/uL (3.80-5.40); RDW 14.8 % (11.5-15.5); WBC 8.7 k/uL (3.8-10.6)
[2023-06-11] MEDS ORDERED: HYDROmorphone 0.5 MG/0.5 ML SYRINGE IVP STA (12:00)
[2023-06-11 12:03] LABS: ALT 33 U/L (4-34); AST 26 U/L (14-36); African American GFR (CKD) >90 (>60 ml/min/1.73 sqM); Alkaline Phosphatase 60 U/L (38-126); Anion Gap 8 mmol/L; Blood Urea Nitrogen 17 mg/dL (7-17); Carbon Dioxide 26 mmol/L (22-30); Chloride 101 mmol/L (98-107); Glucose 89 mg/dL (74-99); Non-African American GFR(CKD) 88 (>60 ml/min/1.73 sqM); Potassium 4.1 mmol/L (3.5-5.1); Sodium 135 mmol/L (137-145); Total Bilirubin 0.6 mg/dL (0.2-1.3); Total Protein 6.6 g/dL (6.3-8.2)
[2023-06-11 12:11] LABS: NT-Pro-B-Type Natriuretic Pept 80 pg/mL
--- NOTE | 2023-06-11 12:30 | US ---
EXAMINATION TYPE: US venous doppler duplex LE DATE OF EXAM: 06/11/2023 12:25 PM COMPARISON: NONE CLINICAL INDICATION: Female, 63 years old with history of swelling; Patient left AMA with pneumonia a nd bronchitis SIDE PERFORMED: Bilateral TECHNIQUE: The lower extremity deep venous system is examined utilizing real time linear array sonog patricia with graded compression, doppler sonography and color-flow sonography. VESSELS IMAGED: Common Femoral Vein Deep Femoral Vein Greater Saphenous Vein * Femoral Vein Popliteal Vein Small Saphenous Vein * Proximal Calf Veins (* superficial vessels) Right Leg: Negative for DVT Left Leg: Negative for DVT IMPRESSION: Grayscale, color doppler, spectral doppler imaging performed of the deep veins of the lo wer extremities. There is normal flow, compressibility, vascular waveforms.
[2023-06-11] MEDS ORDERED: HYDROmorphone 1 MG/ML 1 ML SYRINGE IVP STA (12:52)
--- NOTE | 2023-06-11 13:08 | XR ---
EXAMINATION TYPE: XR chest 2V DATE OF EXAM: 06/11/2023 COMPARISON: NONE TECHNIQUE: PA and lateral views submitted. HISTORY: Cough FINDINGS: The lungs are clear and there is no pneumothorax, pleural effusion, or focal pneumonia. Heart size normal and no overt failure. Osseous structures demonstrate hypertrophic and degenerative changes of the spine. Postsurgical change overlying the cervical spine. Some of these changes. Chronic left marin ral neck. Bilateral shoulder series IMPRESSION: 1. No acute process.
[2023-06-11 14:23] VITALS: BP 158/95; PULSE 82; TEMP 98.7
== END 2023-06-11 14:01 | disposition home or self-care (01) ==
LOC: EC 10:44
DX: R60.0 Localized edema (principal); B37.0 Candidal stomatitis; R06.2 Wheezing; J44.9 Chronic obstructive pulmonary disease, unspecified; F41.9 Anxiety disorder, unspecified; Z79.51 Long term (current) use of inhaled steroids; Z79.899 Other long term (current) drug therapy; Z88.0 Allergy status to penicillin; Z88.1 Allergy status to other antibiotic agents; Z87.891 Personal history of nicotine dependence
CPT/HCPCS: 36415; 93005; 83880; 80053; 85027; 71046; 93970; 99284; 96374; 96376; J1170 ×2

== ENCOUNTER → 2023-11-19 | Outpatient (CLI) | payer MEDICARE, OTHER ==
--- NOTE | 2023-11-23 19:10 | BD ---
EXAMINATION TYPE: Axial Bone Density DATE OF EXAM: 11/19/2023 CLINICAL HISTORY: 63 years old Female. ICD-10 CODE: M89.859 OT DISRD OF BONE DENSITY AND STRUCTURE, U Height: 64" Weight: 168lbs FRAX RISK QUESTIONS: Alcohol (3 or more units per day): No Family History (Parent hip fracture): No Glucocorticoids (More than 3mos): No (Ex: prednisone, prednisolone, methylprednisolone, dexamethasone, and hydrocortisone). History of Fracture in Adulthood: Yes Secondary Osteoporosis: 1. Type 1 Diabetes: No 2. Hyperthyroidism: No 3. Menopause before 45: No 4. Malnutrition: No 5. Chronic liver disease: No Rheumatoid Arthritis: No Current Tobacco Use: No RISK FACTORS HISTORY OF: Hip Fracture (Right/Left): No Spine Fracture: No History of Wrist Fracture: No Surgery to Spine/Hip(right/left)/Wrist (right/left): No MEDICATIONS: Thyroid Medications: No Osteoporosis Medications: No EXAM MEASUREMENTS: Bone mineral densitometry was performed using the [employer] System. Bone mineral density as measured about the Lumbar spine is: ----- L1-L4(G/cm2): 1.346 T Score Values are as follows: ----- L1: 1.3 ----- L2: 1.2 ----- L3: 1.3 ----- L4: 1.5 ----- L1-L4: 1.4 Z Score Values are as follows: ----- L1: 2.5 ----- L2: 2.4 ----- L3: 2.5 ----- L4: 2.7 ----- L1-L4: 2.6 Baseline @MPH Bone mineral density about the R hip (g/cm2): 1.007 Bone mineral density about the L hip (g/cm2): 1.016 T Score values are as follows: -----R Neck: -0.7 -----L Neck: -0.8 -----R Total: 0.0 -----L Total: 0.1 Z Score values are as follows: -----R Neck: 0.5 -----L Neck: 0.4 -----R Total: 0.9 -----L Total: 1.0 Baseline @MPH FRAX%s: The graph provided illustrates a 19.5% chance for a major osteoporotic fx and a 1.4% chance f or the hips probability for fx in 10 years time. IMPRESSION: Normal (Values between +1 and -1 indicate normal bone mass). Consider repeating this study in 5 year s or sooner if there is some new clinical indication. NOTE: T-SCORE=SD OF THE YOUNG ADULT MEAN.
== END | disposition home or self-care (01) ==
LOC: RADBDWWP 11:35
PROVIDERS: ATTEND Internal Medicine
DX: M81.0 Age-related osteoporosis without current pathological fracture (principal); M89.8X9 Other specified disorders of bone, unspecified site; M54.50 Low back pain, unspecified
CPT/HCPCS: 77080